=== PATIENT | male | born 1960 | race Caucasian/White ===

== ENCOUNTER 2018-04-14 11:00 | Outpatient (RCR) | payer OTHER, SELFPAY | END 2018-04-28 08:02 | disposition home or self-care (01) | LOC: PT 11:00 | PROVIDERS: Family Provider Family Medicine; Visit Provider Podiatrist Foot & Ankle Surgery | DX: M72.2 Plantar fascial fibromatosis (principal); M77.9 Enthesopathy, unspecified | CPT/HCPCS: 97033; 97110; 97140; 97163 ==

== ENCOUNTER → 2018-08-21 14:38 | Outpatient (CLI) | payer BC, SELFPAY ==
--- NOTE | 2018-08-21 14:42 | XR_ITS ---
XR chest 2V HISTORY: Wheezing, cough, smoker ITS.REASON: WHEEZY ORDERING PHYSICIAN: Xiomara Johnson PATIENT AGE: 58 years COMPARISON: 09/27/2015 FINDINGS: There has been a prior median sternotomy/CABG. Fracture several median sternotomy wires as before. The heart size. There is diffuse prominence of the interstitium. No lobar consolidation or collapse. Slight increased markings are present in the left perihilar region with bronchial thickening. There is pleural thickening in the left lung base and in the posterior hemithorax inferiorly. No acute bony anomalies. IMPRESSION: Diffuse interstitial lung disease with bronchial thickening in the left perihilar region consistent bronchitis/bronchiolitis with chronic changes
== END ==
PROVIDERS: PCP Physician Assistant; Visit Provider Physician Assistant
DX: R06.2 Wheezing (principal)
CPT/HCPCS: 71046

== ENCOUNTER 2020-01-27 10:30 | Emergency (ER) | payer BC, SELFPAY ==
[2020-01-27 10:33] VITALS: BP 132/85; PULSE 81; RESP 18; O2SAT 94; BMI 35.2
--- NOTE | 2020-01-27 10:46 | CT_ITS ---
PROCEDURE: CT HEAD/BRAIN WO CON CLINICAL INDICATION: dizziness COMPARISON: No exams were available for comparison TECHNIQUE: Axial images obtained. All CT scans at the facility use one or more dose reduction, viz: automated exposure control, ma/kV adjustment per patient size (including targeted exams where dose is matched to indication, i.e. head), or iterative reconstruction technique. FINDINGS: No midline shift, mass effect, intracranial hemorrhage, hydrocephalus, or extra-axial fluid collection is evident. There are mild periventricular hypodensities consistent with chronic ischemic white matter changes. The sylvian fissures and cortical sulci are mildly prominent. The calvarium has an unremarkable appearance. No mastoid effusion. The internal auditory canals appear normal. No sinus air-fluid level. IMPRESSION: Findings of mild age-appropriate cortical atrophy and mild chronic ischemic white matter changes, no acute intracranial pathology noted Dictated by: Dr. Vasiliy Garcia MD 01/27/2020 11:[address] Vasiliy Garcia MD in [place] 01/27/2020 11:30
--- NOTE | 2020-01-27 10:46 | CT_ITS ---
PROCEDURE: CT CHEST WO CON CLINICAL INDICATION: dizziness, cough COMPARISON: [facility] CT CHEST W/ CONTRAST from 11/03/2015 TECHNIQUE: Axial images obtained with sagittal and coronal reformats. All CT scans at the facility use one or more dose reduction, viz: automated exposure control, ma/kV adjustment per patient size (including targeted exams where dose is matched to indication, i.e. head), or iterative reconstruction technique. FINDINGS: HEART AND MEDIASTINAL STRUCTURES: There has been a previous median sternotomy with sternal wire sutures. Several of the wire sutures are fractured. There is mild generalized cardiomegaly with aortic tortuosity. There is markedly prominent coronary artery calcification. There is no pulmonary congestion. There are multiple borderline enlarged nodes in the paratracheal and perihilar regions bilaterally. LUNGS AND PLEURAL SPACES: There are findings of centrilobular emphysema primarily in the upper lobes with multiple air attenuation lucencies. Mild interstitial fibrotic changes are seen in the mid and lower lung mariano. There is no acute infiltrate. There is no pleural fluid. There is minimal pleural scarring at the left base. BONY STRUCTURES: No acute bony abnormalities apparent. There are mild multilevel degenerate changes of the thoracic spine. UPPER ABDOMEN: There is prominent arteriosclerotic calcification of the splenic artery ADDITIONAL FINDINGS: No other significant abnormalities. IMPRESSION: Mild centrilobular emphysematous changes and mild interstitial fibrotic changes, no acute cardiopulmonary disease seen. Dictated by: Dr. Vasiliy Garcia MD 01/27/2020 11:[address] Vasiliy Garcia MD in [place] 01/27/2020 11:49
[2020-01-27 11:07] LABS: Basophils % 0.3 % (0.1-2.0); Eosinophils # 0.2 K/mm3 (0.0-0.4); Hematocrit 45.9 % (42.0-52.0); Hemoglobin 15.5 g/dL (14.1-18.0); Lymphocytes # 1.3 K/mm3 (0.7-4.5); Lymphocytes % 13.2 % (10-50); Mean Corpuscular HGB Conc 33.8 g/dL (31.8-35.4); Mean Corpuscular Hemoglobin 30.2 pg (27.0-31.2); Mean Corpuscular Volume 89.4 fl (80-94); Mean Platelet Volume 7.3 fl (7.4-10.4); Monocytes # 0.6 K/mm3 (0.1-1.0); Monocytes % 6.2 % (1.7-9.3); Neutrophils # 7.5 K/mm3 (1.8-7.8); Neutrophils % 78.4 % (37.0-80.0); Platelet Count 227 K/mm3 (142-424); Red Blood Count 5.14 M/mm3 (4.60-6.20); Red Cell Distribution Width 15.7 % (11.5-17.5); White Blood Count 9.6 K/mm3 (4.8-10.8)
--- NOTE | 2020-01-27 11:08 | PC.NURSE ---
Pt to rad.
[2020-01-27 11:11] LABS: Alanine Aminotransferase 24 U/L (12-78); Albumin Level 4.6 g/dl (3.5-5.0); Alkaline Phosphatase 111 U/L (38-126); Aspartate Amino Transferase 34 U/L (17-59); Bilirubin,Total 0.4 mg/dl (0.2-1.3); Blood Urea Nitrogen 18 mg/dl (9-20); Calcium 10.4 mg/dl (8.4-10.2); Carbon Dioxide 35 mmol/L (22.0-30.0); Chloride 94 mmol/L (98-107); Creatinine Clearance Estimated 78 mL/min (50-200); Estimated Glomerular Filt Rate 44 ml/min (>60); GFR (African American) 54 ML/MIN (>60); Globulin 4.8 g/dL (1.3-3.2); Glucose 205 mg/dl (74-100); Sodium 137 mmol/L (136-145); Total Protein,Serum 9.4 g/dl (6.3-8.2)
[2020-01-27 11:35] VITALS: BP 108/71; PULSE 77; O2SAT 90
[2020-01-27 12:01] VITALS: BP 126/77; PULSE 77; O2SAT 92
--- NOTE | 2020-01-27 12:33 | PC.NURSE ---
Pt eating at this time.
[2020-01-27 12:34] VITALS: BP 117/68; PULSE 87; O2SAT 96
--- NOTE | 2020-01-27 13:06 | HMH.EDDIZZ ---
ED Disposition Clinical Impression: Dehydration Disposition: Home, Self-Care Condition on Discharge: Good Instructions: Dehydration Prescriptions: Meclizine HCl [Meclizine 25mg Tab] 25 mg PO TID 10 Days #30 tab Prescription Printed Referrals: Jen Iniguez APRN [Primary Care Provider] - - Critical Care Critical Care Time: No Attestation: On 01/27/20, the high probability of a clinically significant, sudden or life threatening deterioration of the following system(s) required my full and direct attention, intervention and personal management. The time I documented below is in addition to time spent performing reported procedures but includes the following listed in this critical care notation. Medical Decision Making - Medical Records Medical records reviewed: Yes: I reviewed the patient's medical records. - Carrillo Inquiry Pt receiving controlled substance: No Vital Signs: 01/27/20 10:33 01/27/20 11:35 01/27/20 12:01 Pulse Rate [Radial] 81 77 77 Respiratory Rate 18 Blood Pressure [Right Arm] 132/85 108/71 L 126/77 Blood Pressure Mean [Right Arm] 100 83 93 Blood Pressure Source [Right Arm] Automatic Cuff Automatic Cuff Automatic Cuff Blood Pressure Position [Right Arm] Sitting Sitting Sitting 02 Sat by Pulse Oximetry 94 L 90 L 92 L Oxygen Delivery Method Room Air Room Air Room Air 01/27/20 12:34 Pulse Rate [Radial] 87 Respiratory Rate Blood Pressure [Right Arm] 117/68 Blood Pressure Mean [Right Arm] 84 Blood Pressure Source [Right Arm] Automatic Cuff Blood Pressure Position [Right Arm] Sitting 02 Sat by Pulse Oximetry 96 Oxygen Delivery Method Room Air - Lab Data Lab results reviewed: Yes: I reviewed the patient's lab results. Lab Results 01/27/20 10:57: WBC 9.6, RBC 5.14, Hgb 15.5, Hct 45.9, MCV 89.4, MCH 30.2, MCHC 33.8, RDW 15.7, Plt Count 227, MPV 7.3 L, Neut % (Auto) 78.4, Lymph % (Auto) 13.2, [place] % (Auto) 6.2, Eos % (Auto) 2.0, Baso % (Auto) 0.3, Neut # (Auto) 7.5, Lymph # (Auto) 1.3, [place] # (Auto) 0.6, Eos # (Auto) 0.2, Baso # (Auto) 0.0 01/27/20 10:57: Sodium 137, Potassium 5.0, Chloride 94 L, Carbon Dioxide 35 H, Anion Gap 13.0, BUN 18, Creatinine 1.60 H, Estimated Creat Clear 78, Estimated GFR 44 L, Est GFR ( Amer) 54 L, Glucose 205 H, Calcium 10.4 H, Total Bilirubin 0.4, AST 34, ALT 24, Alkaline Phosphatase 111, Total Protein 9.4 H, Albumin 4.6, Globulin 4.8 H, Albumin/Globulin Ratio 1.0 L Result diagrams: 01/27/20 10:57 01/27/20 10:57 Orders (Tests/Meds): ED MEDICATIONS Discontinued Medications Generic Name Dose Route Start Last Admin Trade Name Freq PRN Reason Stop Dose Admin Sodium Chloride 1,000 mls @ 999 mls/hr 01/27/20 11:00 01/27/20 11:04 Sod Chlor 0.9% 1000ml Bag IV 01/27/20 12:00 999 mls/hr .[id number] Administration Dizzy HPI - General Chief Complaint: Dizziness Stated Complaint: rule out Stroke or heart Attack Time Seen by Provider: 01/27/20 13:00 Mode of Arrival: Ambulatory Source of Information: Patient Limitations: No Limitations Description of Symptoms (Recalled from ER Triage Doc. by RN): Complaint of dizziness when laying down or movement. States it feels like his head just keeps moving even though he is not physically moving. States that it does seem to be getting better and is wondering if this is related to the Recall on his Metformin. - History of Present Illness MD complaint: dizziness Onset (ago): hour(s) Time: 13:00 Timing: sudden onset Description: sense of movement History of similar episodes: Yes History of trauma: No Severity: mild Relieving factors: rehydration Exacerbating factors: nothing Associated symptoms: denies other symptoms - Related Data Previous Rx's Medication Instructions Recorded Meclizine HCl [Meclizine 25mg Tab] 25 mg PO TID 10 Days #30 tab 01/27/20 Allergies Allergy/AdvReac Type Severity Reaction Status Date / Time Sulfa (Sulfonamide Allergy Severe S-DIFF. Verified
[2020-01-27 13:08] VITALS: BP 116/76; PULSE 79; O2SAT 93
[2020-01-27 13:36] VITALS: BP 116/76; PULSE 74; RESP 16; TEMP 36.9; O2SAT 98
== END 2020-01-27 13:36 | disposition home or self-care (01) ==
PROVIDERS: Emergency Provider Family Medicine; PCP Nurse Practitioner Family
DX: E86.0 Dehydration (principal); F17.210 Nicotine dependence, cigarettes, uncomplicated; Z88.2 Allergy status to sulfonamides
CPT/HCPCS: 70450; 71250; 80053; 85025; 96365; 99283

== ENCOUNTER → 2020-04-14 07:07 | Outpatient (CLI) | payer BC, SELFPAY ==
--- NOTE | 2020-04-14 07:08 | CA_ITS ---
APPROVED REPORT EXAM: Comprehensive 2D, Doppler, and color-flow Echocardiogram Breadman: Emely Chávez RT(R) Ht: 5 ft 10 in Wt: 257lbs BSA: 2.32 BP: 136/70 mmHg Indications: CABG, COPD, HTN, DM, SOB, hyperlipidemia, stent 2D Dimensions LVOT 1.78 cm (M/F) 1.5-2.5 M-Mode Dimensions LVDd 4.12 cm (3.5-5.7) LVDs 3.32 cm (3.5-5.7) IVSd 1.22 cm (0.6-1.1) PWd 1.12 cm (0.6-1.1) EF (Teich) 40.30% FS 19.40% EDV (Teich) 75.10 mL ESV (Teich) 44.80 mL LV Diastology E/A Ratio 0.96 Mitral Valve MV A Velocity 76.00 (40-130 cm/s) Left Ventricle Technically difficult study because of the patient factors and poor acoustic windows, Definity contrast was utilized to delineate the endocardial surfaces, left atrium is mildly enlarged, left ventricle is normal size, mild concentric left ventricular hypertrophy, visually estimated ejection fraction 55% with no regional wall motion abnormality, diastolic parameters are inconclusive. Right Ventricle Right atrium and right ventricle are normal size and contractility. Aortic Valve Aortic valve is minimally thickened and fibrosed, there is no aortic stenosis or aortic insufficiency. Mitral Valve Mitral valve leaflets are minimally thickened, there is mild mitral regurgitation. Tricuspid Valve Tricuspid valve grossly normal, there is mild tricuspid regurgitation, tricuspid regurgitation jet velocity is inadequate for calculation of the right ventricular systolic pressure. Pulmonic Valve Pulmonic valve is poorly visualized. Great Vessels Aortic root is normal size. Pericardium No significant pericardial effusion noted. Conclusion 1. Mildly enlarged left atrium, normal left ventricular size, mild concentric left ventricular hypertrophy, visually estimated ejection fraction 55% with no regional wall motion abnormality, Definity contrast was utilized to delineate the endocardial surfaces, there is no left ventricular thrombus seen, diastolic parameters are inconclusive. 2. Thickened and calcified aortic valve without aortic stenosis or aortic insufficiency. 3. Mild mitral and tricuspid regurgitation. 4. No significant pericardial effusion noted. Electronically signed by : Xander Gunn, 04/14/2020 13:17:30
--- NOTE | 2020-04-14 07:08 | NM_ITS ---
APPROVED REPORT Exam: Nuclear Stress Test Indication: CAD, CABG, HTN, DM, TOB USE, FM HX, FATIGUE Patient Location: Outpatient Stress Tech: Camille Figueroankson [place] Tech:RJ Burnett RT (R)(N)(M) Ht: 5 ft 10 in Wt: 257 lbs HR: 93 bpm BP: 124/74 mmHg BSA: 2.32 m2 BMI: 36.8 History: CAD, CABG, HTN, DM, TOB USE, FM HX, FATIGUE Procedure: Patient received a 0.4 mg of intravenous Lexiscan, resting heart rate 93 bpm, resting blood pressure 124/74 mmHg, with Lexiscan maximum heart rate achived was 105 bpm which is Less than 85 % of the maximum predicted heart rate and blood pressure was 122/71 mmHg. With Lexiscan, patient denied any complaint of chest pain. Electrocardiogram Resting electrocardiogram shows sinus rhythm right bundle branch block, with Lexiscan there is less than 1.[address] segment depression noted from the baseline EKG. The EKG portion of the Lexiscan Myoview is nondiagnostic. Cardiac Stress and Resting SPECT Images: Cardiac Stress and Resting SPECT images were obtained using technetium 99m Myoview 30.8 mCi stress and 10.84 mCi at rest. Gated SPECT for the analysis of segmental wall motion and calculation of the ejection fraction also done. Cardiac stress and rest SPECT images show decrease tracer activity in the anterolateral wall which improves on the resting images, this is consistent with reversible ischemia, there is transient ischemic dilatation of the left ventricle also seen. Computer derived ejection fraction is 61% with no regional wall motion abnormality, right ventricle is normal size and contractility. Conclusion: 1. The EKG portion of the Lexiscan Myoview is nondiagnostic. 2. Scintigraphic evidence of reversible ischemia involving the anterolateral wall, computer derived ejection fraction is 61% with no regional wall motion abnormality, right ventricle is normal size and contractility, there is transient ischemic dilatation of the left ventricle seen. 3. Abnormal Lexiscan Myoview study. Electronically signed by : Xander Gunn, 04/14/2020 13:34:46
--- NOTE | 2020-04-14 07:08 | CA_ITS ---
APPROVED REPORT Exam: Pharmacologic Technologist: Myranda Bravo, Ht: 5 ft 10 in Wt: 257 lbs BSA: 2.32 m2 HR: 93 bpm BP: 124/74 mmHg Rhythm: NSR,RBBB Medical History Medical History: CAD s/p CABG, Diabetic ??? Insulin, Hyperlipidemia, HTN Medications: Levothyroxine,,,,, Metoprolol,,,,, Asa,,,,, Metformin,,,,, Gabapentin,,,,, Allopurinol,,,,, Glimepiride,,,,, Lasix,,,,, INSULIN,,,,, SpirOLACTONE,,,,, Vit D3,,,,, Plavix,,,,, Allergies: SULFA ALBUTEROL IRON Stress Test Details Test: LEXISCAN HR Resting HR: 89 bpm Max Heart Rate (APMHR): 161 bpm Max HR Achieved: 105 bpm Target HR (85% APMHR): 136 bpm % of APMHR: 65 Recovery HR: 96 bpm BP Resting BP: 124.0/74.0 mmHg Max BP: 124.0/74.0 mmHg Recovery BP: 124.0/71.0 mmHg ECG Resting ECG: NSR,RBBB Clinical Reason for Termination: Completed Protocol Exercise duration: 04:13 min Highest Stage Achieved: Stress ECG Conclusion DURING INFUSION PATIENT HAD NO CHEST PAIN. OCCASIONAL PVC AND PAC. <1.5MM ST SEGMENT CHANGES. NON-DIAGNOSTIC. Test Summary REST . . . . . . . Sitting REST . . . . . . . Sitting REST 10:36 . . 89 . 124/ 74 . . Stage 1 . . . . . . . Cardiolite injected Stage 1 01:00 . . 101 . . . . Stage 2 01:00 . . 105 . 118/ 70 . . Stage 3 01:00 . . 102 . 122/ 71 . . Stage 4 01:00 . . 99 . 121/ 74 . . Stage 4 01:13 . . 99 . 122/ 66 . Stop exercise at 04:13 RECOVERY 01:00 . . 97 . . . . RECOVERY 02:00 . . 97 . . . . RECOVERY 03:00 . . 96 . . . . RECOVERY 04:00 . . 96 . 121/ 70 . . RECOVERY 04:21 . . 96 . 121/ 70 . . Electronically signed by : Xander Gunn, 04/14/2020 13:32:30
== END ==
PROVIDERS: PCP Nurse Practitioner Family; Visit Provider Physician Assistant
DX: I25.10 Atherosclerotic heart disease of native coronary artery without angina pectoris (principal); E78.5 Hyperlipidemia, unspecified; I10 Essential (primary) hypertension; Z95.1 Presence of aortocoronary bypass graft
CPT/HCPCS: 78452; 93017; 93306; A9502; J2785; Q9957

== ENCOUNTER 2020-05-02 08:54 | Day surgery (SDC) | payer BC, SELFPAY ==
[2020-05-02] VITALS (10 sets, daily range): BP systolic 124–150; BP diastolic 73–89; PULSE 77–85; RESP 16–20; TEMP 36.2; O2SAT 92–97; BMI 37.0
[2020-05-02 09:38] LABS: Basophils % 0.4 % (0.1-2.0); Eosinophils # 0.2 K/mm3 (0.0-0.4); Eosinophils % 1.8 % (0.1-12.0); Hematocrit 45.7 % (42.0-52.0); Hemoglobin 15.3 g/dL (14.1-18.0); Lymphocytes # 1.3 K/mm3 (0.7-4.5); Lymphocytes % 11.9 % (10-50); Mean Corpuscular HGB Conc 33.5 g/dL (31.8-35.4); Mean Corpuscular Hemoglobin 30.7 pg (27.0-31.2); Mean Corpuscular Volume 91.7 fl (80-94); Mean Platelet Volume 7.7 fl (7.4-10.4); Monocytes # 0.5 K/mm3 (0.1-1.0); Monocytes % 4.9 % (1.7-9.3); Neutrophils # 8.7 K/mm3 (1.8-7.8); Neutrophils % 81.2 % (37.0-80.0); Platelet Count 217 K/mm3 (142-424); Red Blood Count 4.98 M/mm3 (4.60-6.20); Red Cell Distribution Width 16.2 % (11.5-17.5); White Blood Count 10.8 K/mm3 (4.8-10.8)
[2020-05-02 09:48] LABS: Chloride 100 mmol/L (98-107); Potassium 4.3 mmoL/L (3.5-5.1); Sodium 139 mmol/L (136-145)
[2020-05-02 09:51] LABS: Anion Gap 12.3 mEq/L (5-15); Blood Urea Nitrogen 19 mg/dl (9-20); Carbon Dioxide 31 mmol/L (22.0-30.0); Creatinine Clearance Estimated 93 mL/min (50-200); Estimated Glomerular Filt Rate 52 ml/min (>60); GFR (African American) 63 ML/MIN (>60)
[2020-05-02 09:52] LABS: Calcium 9.7 mg/dl (8.4-10.2); Glucose 227 mg/dl (74-100)
[2020-05-02 10:18] LABS: Coronavirus 19 IgG Antibody Positive (Negative); Coronavirus 19 IgM Antibody Negative (Negative)
--- NOTE | 2020-05-02 11:00 | IR_ITS ---
APPROVED REPORT Patient Location: Outpatient PROCEDURES Left heart catheterization Left ventriculogram Selective coronary angiogram Left internal mammary angiography Selective engagement of the saphenous vein graft to the circumflex artery Selective engage in the saphenous vein graft to the right coronary INDICATION Coronary artery disease, Coronary bypass surgery, Abnormal Myoview, Angina pectoris Informed consent was obtained prior to the procedure. COMPLICATIONS none Estimated Blood Loss: less than 10 mls TECHNIQUE One percent lidocaine used to anesthetize the right groin. The right femoral artery was accessed via the Seldinger technique and a 5 Togolese sheath was placed in the right femoral artery. A JL 4, JR4 catheter were used to perform left heart catheterization, left ventriculogram selective coronary angiography as well as selective engagement of the 2 vein grafts and the left internal mammary artery. At the end of the procedure the patient was transferred to the postop holding area in stable condition for sheath removal. ANGIOGRAPHIC RESULTS The left main artery Normal The left anterior descending artery Proximally occluded The circumflex artery Is dominant and has mid vessel 90% stenoses and gives rise to a small first obtuse marginal artery. The circumflex artery is then occluded at the second obtuse marginal artery The right coronary artery Nondominant and subtotally occluded in the proximal segment The SMITH ventriculogram reveals Preserved at 55 to 60% The left ventricular end-diastolic pressure 10 mmHg DOSS graft is widely patent to the LAD Saphenous vein graft to the second obtuse marginal artery is widely patent Saphenous vein graft to the right coronary is widely patent IMPRESSION Adequate three-vessel coronary revascularization as described above Preserved ejection fraction Normal left ventricular end-diastolic pressure PLAN 1. Medical management Electronically signed by : Link Horton, 05/02/2020 13:01:28
== END 2020-05-02 15:30 | disposition home or self-care (01) ==
LOC: CATHLAB 08:55
PROVIDERS: PCP Nurse Practitioner Family; Visit Provider Internal Medicine
DX: I25.118 Atherosclerotic heart disease of native coronary artery with other forms of angina pectoris (principal); E78.2 Mixed hyperlipidemia; I10 Essential (primary) hypertension; Z95.1 Presence of aortocoronary bypass graft; R94.39 Abnormal result of other cardiovascular function study; R06.00 Dyspnea, unspecified; E03.9 Hypothyroidism, unspecified; E11.9 Type 2 diabetes mellitus without complications; Z88.2 Allergy status to sulfonamides; Z88.8 Allergy status to other drugs, medicaments and biological substances; Z79.4 Long term (current) use of insulin; Z79.899 Other long term (current) drug therapy
CPT/HCPCS: 80048; 85025; 86328; 93459; 99152; C1725; C1769; C1894; J1644; Q9967

== ENCOUNTER → 2020-05-18 09:58 | Outpatient (CLI) | payer BC, SELFPAY | PROVIDERS: PCP Nurse Practitioner Family; Visit Provider Internal Medicine Pulmonary Disease | DX: R06.00 Dyspnea, unspecified (principal); J84.9 Interstitial pulmonary disease, unspecified | CPT/HCPCS: 94060; 94618; 94726; 94729 ==

== ENCOUNTER → 2020-11-13 12:47 | Outpatient (CLI) | payer BC, SELFPAY ==
--- NOTE | 2020-11-13 12:50 | CT_ITS ---
PROCEDURE: CT HR CHEST X3 CLINICAL HISTORY: ILD Follow up soa, interstitial lung disease, pulmonary fibrosis, smoker COMPARISON: CT CT CHEST WO CON from 01/27/2020 TECHNIQUE: Study is performed without contrast. Regular and high-resolution images are obtained on inspiration, expiration, and prone position. Axial images obtained with sagittal and coronal reformats. All CT scans at the facility use one or more dose reduction, viz: automated exposure control, ma/kV adjustment per patient size (including targeted exams where dose is matched to indication, i.e. head), or iterative reconstruction technique. FINDINGS: There has been a prior CABG. Extensive coronary artery calcification and/or stents noted. The heart size is normal. No evidence of aortic aneurysm. Scattered small mediastinal lymph nodes are once again noted not significantly changed. Diffuse pulmonary fibrosis once again noted with honeycombing in the upper lobes. There is a subpleural nodular opacity within the lingula at 12 mm not readily apparent on the previous exam possibly due to an area of subpleural atelectatic change/consolidation. Cannot exclude the possibility of a developing nodule. Scarring is present in the left lung base laterally. There is some scattered interlobular septal thickening in the lung bases. The pulmonary fibrotic changes do not appear significantly changed considering the difference in technique.. Atelectatic changes are present in the lung bases. The lung volume is not significantly changed in inspiration or expiration suggesting air trapping. There is mild bronchiectasis in the upper lobes. Mild bronchial thickening noted. No acute bony findings. There are few small nodes in the epigastric region unchanged. IMPRESSION: 1. Pulmonary fibrotic changes are present with honeycombing with upper lobe predominance. Mild interlobular septal thickening noted in the lung bases. 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 Overall no significant change compared to the previous exam. There is mild bronchial thickening as well as bronchiectasis in the upper lobes. 2. New nodular opacity in the left upper lobe anteriorly in the subpleural region and may be due to an area of subpleural atelectasis or consolidation. Suggest follow-up to exclude developing nodule. Dictated by: Simone Lopez MD 11/18/2020 16:22 Simone Lopez MD in [place] 11/18/2020 16:22
== END ==
PROVIDERS: PCP Nurse Practitioner Family; Visit Provider Internal Medicine Pulmonary Disease
DX: J84.9 Interstitial pulmonary disease, unspecified (principal); J67.9 Hypersensitivity pneumonitis due to unspecified organic dust
CPT/HCPCS: 71250

== ENCOUNTER → 2020-11-20 11:51 | Outpatient (CLI) | payer BC, SELFPAY ==
[2020-11-20 13:02] LABS: Creatine Kinase 55 U/L (55-170); Uric Acid 7.1 mg/dl (3.5-8.5)
[2020-11-20 13:07] LABS: C-Reactive Protein 23.4 mg/L (0-4)
[2020-11-20 14:14] LABS: Erythrocyte Sedimentation Rate 13 mm/hr (0-20)
[2020-11-21 16:34] LABS: Aldolase 9.5 U/L (3.3-10.3); RA Latex Turbid. <10.0 IU/mL (0.0-13.9)
[2020-11-21 17:20] LABS: IgG, Subclass 1 1155 mg/dL (248-810); IgG, Subclass 2 168 mg/dL (130-555); IgG, Subclass 3 82 mg/dL (15-102); Immunoglobulin G, Qn 1631 mg/dL (603-1613)
[2020-11-22 02:50] LABS: IgG, Subclass 4 101 mg/dL (2-96)
[2020-11-22 22:25] LABS: Antinuclear Antibodies, IFA Positive (.)
[2020-11-24 11:20] LABS: Aspergillus fumigatus IgG Negative (Negative)
[2020-11-24 18:01] LABS: Pigeon Serum Abs Negative (Negative)
[2020-11-30 17:51] LABS: Anti-Centromere B Antibodies <.2; Anti-DNA (DS) Ab Qn 2; Anti-Jo-1 <.2; Anti-Smith Antibody <.2; Antichromatin Antibodies <.2; Antiscleroderma-70 Antibodies <.2; RNP Antibodies <.2; Sjogren's Anti-SS-A <.2; Sjogren's Anti-SS-B <.2
[2020-11-30 17:53] LABS: Antinuclear Antibodies (ANA) NEGATIVE; Smith/RNP Antibodies <.2
== END ==
PROVIDERS: Visit Provider Internal Medicine Pulmonary Disease
DX: R06.00 Dyspnea, unspecified (principal); J84.9 Interstitial pulmonary disease, unspecified; J84.10 Pulmonary fibrosis, unspecified; J67.9 Hypersensitivity pneumonitis due to unspecified organic dust
CPT/HCPCS: 36415; 82085; 82550; 82784; 82787; 84550; 85651; 86038; 86140; 86225; 86235; 86331; 86431; 86602; 86606; 86609

== ENCOUNTER 2021-01-18 15:51 | Emergency (ER) | payer BC, SELFPAY ==
[2021-01-18 15:53] VITALS: BP 143/85; PULSE 84; RESP 20; TEMP 37.2; O2SAT 90; BMI 38.2
--- NOTE | 2021-01-18 16:00 | ECG_ITS ---
APPROVED REPORT Exam: Resting ECG HR:93 bpm ECG Measurements Heart Rate 93 AXES IA 138 P 56 QRSd 134 QRS -26 QT 384 T 20 QTc 477 Conclusion Normal sinus rhythm Left atrial abnormality Right bundle branch block Abnormal ECG Electronically signed by : Franco Temple, 01/20/2021 10:56:53
--- NOTE | 2021-01-18 16:14 | XR_ITS ---
PROCEDURE: XR CHEST PORTABLE CLINICAL HISTORY: soa COMPARISON: 08/21/2018 FINDINGS: Prior CABG. There are fractured median sternotomy wires as before. No evidence of CHF. Diffuse interstitial lung disease. The interstitial markings are more prominent than when compared to the older chest x-ray of 08/21/2018. A vague opacity is noted in the left mid to lower lung zone at 2.7 cm. There is chronic blunting of the left CP angle. No acute bony abnormalities. IMPRESSION: Progression of interstitial lung disease. Indeterminate nodular opacity in the left lower lobe. Dictated by: Simone Lopez MD 01/19/2021 07:26 Simone Lopez MD in [place] 01/19/2021 07:26
[2021-01-18 16:15] VITALS: BP 123/76; PULSE 91; RESP 19; O2SAT 87
--- NOTE | 2021-01-18 16:20 | PC.NURSE ---
Rad at bedside
[2021-01-18 16:22] VITALS: BP 123/76; PULSE 91; RESP 23; O2SAT 91
[2021-01-18 16:31] VITALS: BP 106/67; PULSE 92; RESP 24; O2SAT 90
--- NOTE | 2021-01-18 16:31 | HMH.EDGENADL ---
ED Disposition Clinical Impression: Congestive heart failure, Acute pulmonary edema Disposition: Home, Self-Care Condition on Discharge: Good Additional Instructions: Emergency room for difficulty breathing, should your pulse oximetry go less than 90 or any other concerns within the next 8 hours otherwise follow-up with your primary care physician tomorrow Prescriptions: Nitroglycerin 0.4 mg SL [id number] PRN 1 Days #5 tab.subl PRN Reason: Dyspnea Transmission Status: Pending to [id number] Referrals: Jen Iniguez APRN [Primary Care Provider] - - Critical Care Critical Care Time: No Attestation: On 01/18/21, the high probability of a clinically significant, sudden or life threatening deterioration of the following system(s) required my full and direct attention, intervention and personal management. The time I documented below is in addition to time spent performing reported procedures but includes the following listed in this critical care notation. Medical Decision Making - Medical Records Medical records reviewed: Yes: I reviewed the patient's medical records. - Carrillo Inquiry Pt receiving controlled substance: No Vital Signs: 01/18/21 15:53 01/18/21 16:15 01/18/21 16:22 Temperature 99.0 F Temperature Source Oral Pulse Rate 91 H 91 H Pulse Rate [Right] 84 Respiratory Rate 20 19 23 Blood Pressure 123/76 123/76 Blood Pressure [Right Arm] 143/85 H Blood Pressure Mean [Right Arm] 104 02 Sat by Pulse Oximetry 90 L 87 L 91 L Oxygen Delivery Method Room Air 01/18/21 16:31 01/18/21 16:45 Temperature Temperature Source Pulse Rate 92 H 58 L Pulse Rate [Right] Respiratory Rate 24 22 Blood Pressure 106/67 L 112/73 Blood Pressure [Right Arm] Blood Pressure Mean [Right Arm] 02 Sat by Pulse Oximetry 90 L 91 L Oxygen Delivery Method - Lab Data Lab Results 01/18/21 16:14: VBG pH 7.37, VBG pCO2 48.3, VBG pO2 37.7, VBG HCO3 27.1, VBG Total CO2 28.6 H, VBG O2 Saturation 73.4 H, VBG Base Excess 1.8 01/18/21 16:29: WBC 11.4 H, RBC 4.53 L, Hgb 13.3 L, Hct 40.2 L, MCV 88.9, MCH 29.4, MCHC 33.0, RDW 15.2, Plt Count 236, MPV 7.1 L, Neut % (Auto) 78.7, Lymph % (Auto) 14.5, [place] % (Auto) 5.1, Eos % (Auto) 1.4, Baso % (Auto) 0.3, Neut # (Auto) 9.0 H, Lymph # (Auto) 1.7, [place] # (Auto) 0.6, Eos # (Auto) 0.2, Baso # (Auto) 0.0 01/18/21 16:29: Sodium 138, Potassium 4.6, Chloride 102, Carbon Dioxide 29, Anion Gap 11.6, BUN 18, Creatinine 1.70 H, Estimated Creat Clear 79, Estimated GFR 41 L, Est GFR ( Amer) 50 L, Glucose 207 H, Calcium 9.2, Magnesium 1.6, Total Bilirubin 0.4, AST 28, ALT 17, Alkaline Phosphatase 111, NT-Pro-B Natriuret Pep 671 H, Total Protein 8.7 H, Albumin 4.4, Globulin 4.3 H, Albumin/Globulin Ratio 1.0 L Result diagrams: 01/18/21 16:29 01/18/21 16:29 Orders (Tests/Meds): ED MEDICATIONS Generic Name Dose Route Start Last Admin Trade Name Freq PRN Reason Stop Dose Admin Nitroglycerin 0.4 mg 01/18/21 16:34 Nitroglycerin 0.4mg Sl Tablet SL 02/17/21 16:33 [id number] PRN Chest Pain Discontinued Medications Generic Name Dose Route Start Last Admin Trade Name Freq PRN Reason Stop Dose Admin Furosemide 80 mg 01/18/21 16:34 01/18/21 16:57 Furosemide 40mg/4ml Vial IV 01/18/21 16:35 80 mg ONCE ONE Administration ORDERS Category Date Time Status Chest XR -- portable [XR chest portable] Stat Exams 01/18/21 16:14 Taken BNP [Brain Natriuretic Peptide] Stat Lab 01/18/21 16:29 Results Comprehensive Metabolic Panel Stat Lab 01/18/21 16:29 Results Magnesium Stat Lab 01/18/21 16:29 Results Trop I [Troponin I] Stat Lab 01/18/21 16:29 Results Troponin I Q3H Lab 01/18/21 19:15 Ordered Troponin I Q3H Lab 01/18/21 22:15 Ordered Medical Decision Narrative: 60-year-old male presents with shortness of breath. He is in no acute distress nontoxic-appearing however he is mildly dyspneic on initial exam. Chest x-ray turned to
[2021-01-18 16:43] LABS: Basophils % 0.3 % (0.1-2.0); Eosinophils # 0.2 K/mm3 (0.0-0.4); Eosinophils % 1.4 % (0.1-12.0); Hematocrit 40.2 % (42.0-52.0); Hemoglobin 13.3 g/dL (14.1-18.0); Lymphocytes # 1.7 K/mm3 (0.7-4.5); Lymphocytes % 14.5 % (10-50); Mean Corpuscular Hemoglobin 29.4 pg (27.0-31.2); Mean Corpuscular Volume 88.9 fl (80-94); Mean Platelet Volume 7.1 fl (7.4-10.4); Monocytes # 0.6 K/mm3 (0.1-1.0); Monocytes % 5.1 % (1.7-9.3); Neutrophils % 78.7 % (37.0-80.0); Platelet Count 236 K/mm3 (142-424); Red Blood Count 4.53 M/mm3 (4.60-6.20); Red Cell Distribution Width 15.2 % (11.5-17.5); White Blood Count 11.4 K/mm3 (4.8-10.8)
[2021-01-18 16:45] VITALS: BP 112/73; PULSE 58; RESP 22; O2SAT 91
[2021-01-18 16:48] LABS: Chloride 102 mmol/L (98-107); Potassium 4.6 mmoL/L (3.5-5.1); Sodium 138 mmol/L (136-145)
[2021-01-18 16:50] LABS: Blood Urea Nitrogen 18 mg/dl (9-20); Creatinine Clearance Estimated 79 mL/min (50-200); Estimated Glomerular Filt Rate 41 ml/min (>60); GFR (African American) 50 ML/MIN (>60)
[2021-01-18 16:51] LABS: Alanine Aminotransferase 17 U/L (12-78); Albumin Level 4.4 g/dl (3.5-5.0); Alkaline Phosphatase 111 U/L (38-126); Anion Gap 11.6 mEq/L (5-15); Aspartate Amino Transferase 28 U/L (17-59); Bilirubin,Total 0.4 mg/dl (0.2-1.3); Calcium 9.2 mg/dl (8.4-10.2); Carbon Dioxide 29 mmol/L (22.0-30.0); Globulin 4.3 g/dL (1.3-3.2); Glucose 207 mg/dl (74-100); Magnesium 1.6 mg/dl (1.6-2.3); Total Protein,Serum 8.7 g/dl (6.3-8.2)
--- NOTE | 2021-01-18 16:55 | PC.NURSE ---
applied oxygen to pt, his o2 sat was reading 88%
[2021-01-18 16:59] LABS: VBG Base Excess 1.8 mmol/L (-2.4-2.3); VBG HCO3 27.1 mmol/L (23-30); VBG Oxygen Saturation 73.4 % (50-70); VBG PCO2 48.3 mmol/L (35-51); VBG PH 7.37 mmol/L (7.31-7.41); VBG PO2 37.7 mmol/L (28-40); VBG Total CO2 28.6 mmol/L (23-27)
[2021-01-18 17:00] LABS: NT Pro Brain Natriuretic Pep. 671 pg/mL (0-125)
[2021-01-18 17:11] LABS: Troponin I < 0.01 ng/ml (0.00-0.034)
[2021-01-18 17:24] VITALS: BP 112/73; PULSE 91; RESP 20; TEMP 37.2; O2SAT 96
== END 2021-01-18 17:26 | disposition home or self-care (01) ==
PROVIDERS: Emergency Provider Emergency Medicine; PCP Nurse Practitioner Family
DX: J81.0 Acute pulmonary edema (principal); I50.9 Heart failure, unspecified; J44.9 Chronic obstructive pulmonary disease, unspecified; I10 Essential (primary) hypertension; E78.5 Hyperlipidemia, unspecified; I25.10 Atherosclerotic heart disease of native coronary artery without angina pectoris; E11.9 Type 2 diabetes mellitus without complications; Z79.899 Other long term (current) drug therapy; F17.210 Nicotine dependence, cigarettes, uncomplicated; Z88.2 Allergy status to sulfonamides; Z88.8 Allergy status to other drugs, medicaments and biological substances
CPT/HCPCS: 71045; 80053; 82803; 83735; 83880; 84484; 85025; 93005; 96374; 99282

== ENCOUNTER → 2021-01-30 07:48 | Outpatient (CLI) | payer BC, SELFPAY | PROVIDERS: PCP Nurse Practitioner Family; Visit Provider Internal Medicine Pulmonary Disease | DX: R06.09 Other forms of dyspnea (principal) | CPT/HCPCS: 94060; 94618; 94726; 94729 ==

== ENCOUNTER → 2021-02-23 15:21 | Outpatient (CLI) | payer BC, SELFPAY ==
--- NOTE | 2021-02-23 15:21 | CT_ITS ---
PROCEDURE: CT CHEST WO CON CLINICAL INDICATION: lunh nodule Follow-up lung nodule, shortness of air COMPARISON: CT CT CHEST WO CON from 01/27/[address] HR CHEST X3 from 11/13/2020 CR XR CHEST PORTABLE from 01/18/2021 TECHNIQUE: Axial images obtained with sagittal and coronal reformats. All CT scans at the facility use one or more dose reduction, viz: automated exposure control, ma/kV adjustment per patient size (including targeted exams where dose is matched to indication, i.e. head), or iterative reconstruction technique. FINDINGS: HEART AND MEDIASTINAL STRUCTURES: Prior CABG. There is no evidence of mediastinal adenopathy. The largest node is in the anterior mediastinum measuring 3 by 2.5 cm. Other smaller nodes are present and have increased in size. There is diffuse coronary artery calcification. LUNGS AND PLEURAL SPACES: Diffuse pulmonary fibrosis once again noted with honeycombing. Previously described nodule within the lingula has increased in size now measuring 3.6 by 2.9 cm suspicious for malignancy. No obvious chest wall invasion. This nodule is directly contiguous with the least 2 bronchi in the superior lingular segment. There is some minimal pleural calcification in the left lung base posteriorly. No effusions are apparent. A 4 mm noncalcified nodules present in the left lower lobe image 67 series 3 BONY STRUCTURES: No acute bony abnormalities apparent. UPPER ABDOMEN: Vague low-density changes are present in the central aspect of the pancreas at 1.7 cm. Left adrenal gland is enlarged similar to the previous exam ADDITIONAL FINDINGS: Mild gynecomastia IMPRESSION: Enlarging left upper lobe nodule within the lingula with mediastinal adenopathy highly suspicious for malignancy with mediastinal ramón involvement. The nodule may be amenable to biopsy via bronchoscopy. Severe interstitial lung disease with honeycombing is present making the patient at high risk for developing pneumothorax via percutaneous biopsy. Dictated by: Simone Lopez MD 02/24/2021 08:41 Simone Lopez MD in [facility] 02/24/2021 08:41
== END ==
PROVIDERS: PCP Nurse Practitioner Family; Visit Provider Internal Medicine Pulmonary Disease
DX: R91.8 Other nonspecific abnormal finding of lung field (principal)
CPT/HCPCS: 71250

== ENCOUNTER → 2021-03-20 09:33 | Outpatient (CLI) | payer BC, SELFPAY ==
--- NOTE | 2021-03-20 09:33 | CT_ITS ---
PROCEDURE: CT BIOPSY GUIDED NEEDLE CLINICAL HISTORY: lung nodule - Left Left lung mass COMPARISON: CT CT CHEST WO CON from 02/23/2021 TECHNIQUE: Following obtaining informed consent and time-out procedure under aseptic conditions and local anesthesia with 1 percent buffered lidocaine, and CT guidance, a 20 gauge spinal needle was inserted into the left upper lobe mass x2. Fine needle aspiration was performed and given to cytology for immediate evaluation confirming adequate tissue. Axial images obtained with sagittal and coronal reformats. All CT scans at the facility use one or more dose reduction, viz: automated exposure control, ma/kV adjustment per patient size (including targeted exams where dose is matched to indication, i.e. head), or iterative reconstruction technique. FINDINGS: Pre biopsy images demonstrated COPD with pulmonary fibrotic changes centrilobular and paraseptal emphysema. The left upper lobe mass has actually increased in size from 02/24/2020 previously measuring 3.8 x 3 cm now measuring 7.4 by 4.5 cm. The cephalad to caudad extension has also increased however, reformatted images were not performed on the biopsy exam. There is trace left-sided effusion. There are 3 small nodular opacities now noted in the left lower lobe at 1 cm, 1.8 cm, and 0.5 cm. 5 nodular opacities are present in the right lower lobe measuring up to 1 cm. These are suspicious for metastatic foci. They could however be inflammatory or infectious as well. Post biopsy images show no evidence of pneumothorax or pulmonary hemorrhage. Cytology: Malignant non-small cell carcinoma IMPRESSION: Uneventful CT-guided biopsy of the left upper lobe mass demonstrating malignant non-small cell carcinoma. The left upper lobe mass has increased in size and there are now small bilateral pulmonary nodules suspicious for metastasis compared to the previous exam Dictated by: Simone Lopez MD 03/22/2021 14:11 Simone Lopez MD in [facility] 03/22/2021 14:11
[2021-03-20 10:22] LABS: POC Glucose,Bedside 200 (70-110)
[2021-03-20 10:24] VITALS: BMI 36.4
[2021-03-20 11:02] VITALS: BP 114/67; PULSE 98; RESP 18; TEMP 37.1; O2SAT 95
[2021-03-20 11:37] LABS: Basophils % 0.2 % (0.1-2.0); Eosinophils # 0.1 K/mm3 (0.0-0.4); Eosinophils % 0.6 % (0.1-12.0); Hematocrit 36.6 % (42.0-52.0); Hemoglobin 11.9 g/dL (14.1-18.0); Lymphocytes # 1.3 K/mm3 (0.7-4.5); Lymphocytes % 6.9 % (10-50); Mean Corpuscular HGB Conc 32.6 g/dL (31.8-35.4); Mean Corpuscular Hemoglobin 27.7 pg (27.0-31.2); Mean Platelet Volume 8.4 fl (7.4-10.4); Monocytes # 0.9 K/mm3 (0.1-1.0); Monocytes % 4.7 % (1.7-9.3); Neutrophils # 16.7 K/mm3 (1.8-7.8); Neutrophils % 87.6 % (37.0-80.0); Platelet Count 353 K/mm3 (142-424); Red Blood Count 4.31 M/mm3 (4.60-6.20); Red Cell Distribution Width 16.5 % (11.5-17.5)
[2021-03-20 11:44] LABS: MANUAL DIFFERENTIAL MANUAL DIFFERENTIAL (MANUAL DIFF)
[2021-03-20 12:09] LABS: Activated Partial Thrombo Time 32.8 seconds (22.8-30.6); Anisocytosis 1+; Hypochromasia 2+; Lymphocytes % 5 % (10-50); Microcytosis 1+; Monocytes % 4 % (2-9); Neutrophils % 91 % (42-76); Platelet Estimate Normal; Prothrombin Time 12.8 seconds (10.1-12.5); Total Cells Counted 100
[2021-03-20 12:17] LABS: INR 1.09 (0.9-1.1)
--- NOTE | 2021-03-20 13:49 | XR_ITS ---
PROCEDURE: XR CHEST 2V CLINICAL HISTORY: POST BX, EXPIRATION the COMPARISON: CR CXR CHEST(2 VIEWS-NOT PORTABLE) from 09/27/2015 CR CXR2V XR chest 2V from 08/21/[address] HR CHEST X3 from 11/13/2020 CR XR CHEST PORTABLE from 01/18/[address] CHEST WO CON from 02/23/2021 FINDINGS: PA and lateral expiration views are obtained post biopsy showing no evidence of pneumothorax. Chronic interstitial lung disease noted with cardiomegaly. There is a lingular lung mass which is increased in size now measuring approximately 5 cm x 5 cm previously 2.7 cm. No acute bony findings. IMPRESSION: No evidence of pneumothorax status post CT directed biopsy. Enlarging mass within the lingula Pulmonary fibrosis Dictated by: Simone Lopez MD 03/20/2021 14:02 Simone Lopez MD in [facility] 03/20/2021 14:02
--- NOTE | 2021-03-20 16:30 | XR_ITS ---
PROCEDURE: XR CHEST 2V CLINICAL HISTORY: EXPIRATION, POST BIOPSY COMPARISON: CR CXR2V XR chest 2V from 08/21/2018 CR XR CHEST PORTABLE from 01/18/[address] CHEST WO CON from 02/23/[address] BIOPSY GUIDED NEEDLE from 03/20/2021 CR XR CHEST 2V from 03/20/2021 FINDINGS: S/p lingular mass biopsy. No evidence of pneumothorax. Lingular mass with diffuse pulmonary fibrosis once again noted. There is trace left-sided effusion. Prior CABG with multiple fragmented sternotomy wires IMPRESSION: No evidence of pneumothorax status post lingular mass biopsy Dictated by: Simone Lopez MD 03/20/2021 16:44 Simone Lopez MD in [facility] 03/20/2021 16:44
== END ==
PROVIDERS: Radiology Diagnostic Radiology; PCP Nurse Practitioner Family; Visit Provider Internal Medicine Pulmonary Disease
DX: R91.8 Other nonspecific abnormal finding of lung field (principal)
CPT/HCPCS: 36415; 71046; 77012; 82962; 85007; 85025; 85610; 85730

== ENCOUNTER 2021-03-23 12:05 | Emergency (ER) | payer BC, SELFPAY ==
[2021-03-23 12:15] VITALS: BP 107/69; PULSE 83; RESP 29; TEMP 36.9; O2SAT 93; BMI 37.8
--- NOTE | 2021-03-23 12:15 | XR_ITS ---
PROCEDURE: XR CHEST PORTABLE CLINICAL HISTORY: soa COMPARISON: CR XR CHEST PORTABLE from 01/18/2021 CR XR CHEST 2V from 03/20/2021 CR XR CHEST 2V from 03/20/[address] ANGIO CHEST PE PROTOCOL from 03/23/2021 FINDINGS: 5.5 cm mass present in the left lower lung zone within the lingula similar to 03/20/2021. No evidence of pneumothorax. Diffuse pulmonary fibrotic changes are present. Normal heart size. Prior CABG. Small left effusion. IMPRESSION: No change pulmonary fibrosis with mass within the lingula consistent with neoplasm Dictated by: Simone Lopez MD 03/23/2021 14:30 Simone Lopez MD in [facility] 03/23/2021 14:30
--- NOTE | 2021-03-23 12:15 | CT_ITS ---
PROCEDURE: CT ANGIO CHEST PE PROTOCOL CLINCIAL INDICATION: hypoxia, recent biopsy COMPARISON: CT CT CHEST WO CON from 02/23/[address] BIOPSY GUIDED NEEDLE from 03/20/2021 TECHNIQUE: IV Contrast: 70ML Isovue 370 Axial images obtained with sagittal and coronal reformats. All CT scans at the facility use one or more dose reduction, viz: automated exposure control, ma/kV adjustment per patient size (including targeted exams where dose is matched to indication, i.e. head), or iterative reconstruction technique. FINDINGS: HEART AND MEDIASTINAL STRUCTURES: No evidence of pulmonary embolus or aortic aneurysm or dissection. There has been a prior CABG. Enlarged mediastinal lymph nodes are present in the left anterior mediastinum. Mildly prominent nodes are also present in the precarinal region on the right and in the right anterior mediastinum as well as the precarinal region and along the left mainstem bronchus. LUNGS AND PLEURAL SURFACES: There is an enlarging mass within the lingula measuring up to 7.8 cm AP, 4.4 cm transverse, and 4.6 cm cephalad caudad. This is similar compared to 03/20/2021 but has increased since 02/23/2021. Those dimensions were 3.5 cm AP, 3 cm transverse, and 2.9 cm cephalad caudad. Recent biopsy demonstrated this mass to represent malignant non-small cell carcinoma. There is no evidence of pneumothorax. There is diffuse pulmonary fibrotic changes with scattered small nodular opacities in both upper and lower lobes suspicious for metastatic foci unchanged from 03/20/2021 but having developed since 02/23/2021. There is trace left-sided effusion. There is mild calcification of the posterior pleural surface on the left and along the left hemidiaphragm posteriorly. No lobar consolidation or collapse. Faint ground-glass attenuation in the lower lobes. BONY STRUCTURES: No acute bony abnormalities apparent. UPPER ABDOMEN: There is some faint subcutaneous calcification in the right lower lateral chest nonspecific. Nodular involvement of the adrenal glands noted left greater than right nonspecific. Small periportal lymph nodes. ADDITIONAL FINDINGS: No other significant abnormalities. IMPRESSION: 1. No evidence of pulmonary embolus. 2. Left upper lobe mass involving the lingula which is increased in size from 02/23/2021 biopsy-proven malignant [id number] carcinoma with multiple pulmonary nodules consistent with intrapulmonary metastasis and enlarged mediastinal lymph nodes/mediastinal metastasis with trace left-sided effusion 3. Diffuse pulmonary fibrosis Dictated by: Simone Lopez MD 03/23/2021 14:13 Simone Lopez MD in [facility] 03/23/2021 14:13
--- NOTE | 2021-03-23 12:38 | [facility].EDGENADL ---
ED Disposition Clinical Impression: Bronchitis Disposition: Home, Self-Care Condition on Discharge: Good Prescriptions: Amoxicillin/Potassium Clav [Augmentin 875-125 Tablet] 1 tab PO Q12H 7 Days #14 tab Transmission Status: Pending to [id number] predniSONE [Prednisone 50mg Tab] 50 mg PO DAILY #5 tab Transmission Status: Pending to [id number] Referrals: Jen Iniguez APRN [Primary Care Provider] - - Critical Care Critical Care Time: No Attestation: On 03/23/21, the high probability of a clinically significant, sudden or life threatening deterioration of the following system(s) required my full and direct attention, intervention and personal management. The time I documented below is in addition to time spent performing reported procedures but includes the following listed in this critical care notation. Medical Decision Making - Medical Records Medical records reviewed: Yes: I reviewed the patient's medical records. - Carrillo Inquiry Pt receiving controlled substance: No Vital Signs: 03/23/21 12:15 03/23/21 13:00 Temperature 98.4 F Temperature Source Oral Pulse Rate 86 Pulse Rate [Right Radial] 83 Respiratory Rate 29 H 28 H Blood Pressure 100/60 L Blood Pressure [Right Arm] 107/69 L Blood Pressure Mean 74 Blood Pressure Mean [Right Arm] 81 Blood Pressure Source [Right Arm] Automatic Cuff Blood Pressure Position [Right Arm] Sitting 02 Sat by Pulse Oximetry 93 L 92 L Oxygen Delivery Method Nasal Cannula Nasal Cannula Oxygen Flow Rate (LPM) 3 3 - Lab Data Lab Results 03/23/21 12:15: VBG pH 7.32, VBG pCO2 58.1 H, VBG pO2 27.1 L, VBG HCO3 29.5, VBG Total CO2 31.2 H, VBG O2 Saturation 53.5, VBG Base Excess 3.4 H 03/23/21 12:35: Troponin I 0.25 H 03/23/21 12:35: WBC 19.4 H, RBC 4.08 L, Hgb 11.4 L, Hct 35.4 L, MCV 86.8, MCH 28.0, MCHC 32.3, RDW 16.8, Plt Count 375, MPV 7.8, Neut % (Auto) 89.7 H, Lymph % (Auto) 6.0 L, [place] % (Auto) 3.6, Eos % (Auto) 0.6, Baso % (Auto) 0.1, Neut # (Auto) 17.4 H, Lymph # (Auto) 1.2, [place] # (Auto) 0.7, Eos # (Auto) 0.1, Baso # (Auto) 0.0, Total Counted 100, Neutrophils % (Manual) 87 H, Band Neutrophils % 2.0, Lymphocytes % (Manual) 6 L, Monocytes % (Manual) 3, Eosinophils % (Manual) 2, Platelet Estimate Normal, Hypochromasia 1+, Anisocytosis 1+ 03/23/21 12:35: Sodium 131 L, Potassium 5.1, Chloride 91 L, Carbon Dioxide 32 H, Anion Gap 13.1, BUN 22 H, Creatinine 1.70 H, Estimated Creat Clear 78, Estimated GFR 41 L, Est GFR ( Amer) 50 L, Glucose 433 H*, Calcium 9.0, Magnesium 1.6, Total Bilirubin 0.5, AST 33, ALT 25, Alkaline Phosphatase 246 H, NT-Pro-B Natriuret Pep 2520 H, Total Protein 8.2, Albumin 3.5, Globulin 4.7 H, Albumin/Globulin Ratio 0.7 L Result diagrams: 03/23/21 12:35 03/23/21 12:35 Orders (Tests/Meds): ED MEDICATIONS Discontinued Medications Generic Name Dose Route Start Last Admin Trade Name Lucas PRN Reason Stop Dose Admin Insulin Human Lispro 20 unit 03/23/21 13:41 Humalog 100 Units/Ml 3ml Vial (Ssi) SQ 03/23/21 13:42 ONCE ONE Iopamidol 75 ml 03/23/21 13:46 03/23/21 13:48 Iopamidol-370 (76%);100ml Bottle IV 03/23/21 13:47 75 ml ONCE ONE Administration Levalbuterol HCl 1.25 mg 03/23/21 12:45 03/23/21 12:27 Levalbuterol 1.25mg/3ml Neb IH 03/23/21 12:46 1.25 mg ONCE ONE Administration Prednisone 40 mg 03/23/21 12:42 03/23/21 12:45 Prednisone 20mg Tab PO 03/23/21 12:43 40 mg ONCE ONE Administration Sodium Chloride 10 ml 03/23/21 13:46 03/23/21 13:48 Sodium Chloride 0.9% 10ml Syr (Rad Only) IV 03/23/21 13:47 10 ml ONCE ONE Administration ORDERS Category Date Time Status Troponin I Q3H Lab 03/23/21 15:15 Ordered Medical Decision Narrative: 60-year-old male presents with mild respiratory distress after lung biopsy procedure. Vital signs are stable nontoxic-appearing. Dr. Trujillo dilated him as well and recommended CT pulmonary embolism scan as wel
[2021-03-23 12:51] LABS: Basophils % 0.1 % (0.1-2.0); Eosinophils # 0.1 K/mm3 (0.0-0.4); Eosinophils % 0.6 % (0.1-12.0); Hematocrit 35.4 % (42.0-52.0); Hemoglobin 11.4 g/dL (14.1-18.0); Lymphocytes # 1.2 K/mm3 (0.7-4.5); Mean Corpuscular HGB Conc 32.3 g/dL (31.8-35.4); Mean Corpuscular Volume 86.8 fl (80-94); Mean Platelet Volume 7.8 fl (7.4-10.4); Monocytes # 0.7 K/mm3 (0.1-1.0); Monocytes % 3.6 % (1.7-9.3); Neutrophils # 17.4 K/mm3 (1.8-7.8); Neutrophils % 89.7 % (37.0-80.0); Platelet Count 375 K/mm3 (142-424); Red Blood Count 4.08 M/mm3 (4.60-6.20); Red Cell Distribution Width 16.8 % (11.5-17.5); White Blood Count 19.4 K/mm3 (4.8-10.8)
[2021-03-23 12:59] LABS: MANUAL DIFFERENTIAL MANUAL DIFFERENTIAL (MANUAL DIFF)
[2021-03-23 13:00] VITALS: BP 100/60; PULSE 86; RESP 28; O2SAT 92
--- NOTE | 2021-03-23 13:10 | ECG_ITS ---
APPROVED REPORT Exam: Resting ECG HR:86 bpm ECG Measurements Heart Rate 86 AXES ME 128 P 48 QRSd 130 QRS -9 QT 394 T 60 QTc 471 Conclusion Normal sinus rhythm Right bundle branch block Abnormal ECG Electronically signed by : Franco Temple MD 03/23/2021 16:53:27
[2021-03-23 13:12] LABS: Chloride 91 mmol/L (98-107); Potassium 5.1 mmoL/L (3.5-5.1); Sodium 131 mmol/L (136-145)
[2021-03-23 13:15] LABS: Alanine Aminotransferase 25 U/L (12-78); Albumin Level 3.5 g/dl (3.5-5.0); Albumin/Globulin Ratio 0.7 (1.1-1.8); Alkaline Phosphatase 246 U/L (38-126); Anion Gap 13.1 mEq/L (5-15); Anisocytosis 1+; Aspartate Amino Transferase 33 U/L (17-59); Bilirubin,Total 0.5 mg/dl (0.2-1.3); Blood Urea Nitrogen 22 mg/dl (9-20); Carbon Dioxide 32 mmol/L (22.0-30.0); Creatinine Clearance Estimated 78 mL/min (50-200); Eosinophils % 2 % (0-3); Estimated Glomerular Filt Rate 41 ml/min (>60); GFR (African American) 50 ML/MIN (>60); Globulin 4.7 g/dL (1.3-3.2); Hypochromasia 1+; Lymphocytes % 6 % (10-50); Magnesium 1.6 mg/dl (1.6-2.3); Monocytes % 3 % (2-9); Neutrophils % 87 % (42-76); Platelet Estimate Normal; Total Cells Counted 100; Total Protein,Serum 8.2 g/dl (6.3-8.2)
[2021-03-23 13:19] LABS: Glucose 433 mg/dl (74-100)
--- NOTE | 2021-03-23 13:20 | PC.NURSE ---
Aurea from lab called critic BG 433mg/dl , confirmed and repeated back.
[2021-03-23 13:24] LABS: NT Pro Brain Natriuretic Pep. 2520 pg/mL (0-125)
[2021-03-23 14:06] LABS: VBG Base Excess 3.4 mmol/L (-2.4-2.3); VBG HCO3 29.5 mmol/L (23-30); VBG Oxygen Saturation 53.5 % (50-70); VBG PCO2 58.1 mmol/L (35-51); VBG PH 7.32 mmol/L (7.31-7.41); VBG PO2 27.1 mmol/L (28-40); VBG Total CO2 31.2 mmol/L (23-27)
[2021-03-23 14:29] LABS: Troponin I 0.25 ng/ml (0.00-0.034)
[2021-03-23 15:17] VITALS: BP 91/40; PULSE 92; RESP 18; TEMP 36.7; O2SAT 95
== END 2021-03-23 15:20 | disposition home or self-care (01) ==
PROVIDERS: Emergency Provider Emergency Medicine; PCP Nurse Practitioner Family
DX: J20.9 Acute bronchitis, unspecified (principal); I50.9 Heart failure, unspecified; I25.10 Atherosclerotic heart disease of native coronary artery without angina pectoris; E11.9 Type 2 diabetes mellitus without complications; E78.5 Hyperlipidemia, unspecified; I10 Essential (primary) hypertension; E03.9 Hypothyroidism, unspecified; Z86.16 Personal history of COVID-19; F17.210 Nicotine dependence, cigarettes, uncomplicated; Z79.899 Other long term (current) drug therapy
CPT/HCPCS: 71045; 71275; 80053; 82803; 83735; 83880; 84484; 85007; 85025; 93005; 99283; Q9967

== ENCOUNTER 2021-03-28 05:29 | Inpatient (IN) | payer BC, MEDICARE, SELFPAY ==
[2021-03-28] VITALS (9 sets, daily range): BP systolic 90–122; BP diastolic 40–71; PULSE 65–108; RESP 16–24; TEMP 36.3–39.1; O2SAT 89–100; BMI 35.9; BMI 35.0
--- NOTE | 2021-03-28 05:31 | ECG_ITS ---
APPROVED REPORT Exam: Resting ECG HR:103 bpm ECG Measurements Heart Rate 103 AXES MI 118 P 75 QRSd 124 QRS -69 QT 344 T 78 QTc 450 Conclusion Sinus tachycardia Possible Left atrial enlargement Right bundle branch block Left anterior fascicular block Bifascicular block Abnormal ECG Electronically signed by : Franco Temple MD 03/30/2021 12:11:09
--- NOTE | 2021-03-28 05:48 | XR_ITS ---
PROCEDURE INFORMATION: Exam: XR Chest Exam date and time: 03/28/2021 5:48 AM Age: 60 years old Clinical indication: Shortness of breath; Additional info: SOA TECHNIQUE: Imaging protocol: XR of the chest. Views: 1 view. COMPARISON: CR XR CHEST PORTABLE 03/23/2021 1:30 PM FINDINGS: Lungs: There is a stable masslike area of opacification within the left lingula. There is diffuse interstitial lung disease. Pleural spaces: Unremarkable. No pleural effusion. No pneumothorax. Heart/Mediastinum: Unremarkable. No cardiomegaly. Bones/joints: Unremarkable. IMPRESSION: Stable diffuse interstitial lung disease with superimposed lingular mass.
[2021-03-28 05:49] LABS: Coronavirus 19, PCR Not Detected (NotDetected); Influenza A, PCR Not Detected (NotDetected); Influenza B, PCR Not Detected (NotDetected)
[2021-03-28 05:57] LABS: ABG Base Excess 5.5 mmol/L (-2.4-2.3); ABG HCO3 29.3 mmhg (22.0-26.0); ABG Oxygen Saturation 90 % (90-100); ABG PCO2 41.9 mmhg (35.0-45.0); ABG PH 7.46 mmol/L (7.35-7.45); ABG PO2 51.9 mmhg (80-100); ABG TCO2 30.6 mmhg (23-27)
[2021-03-28 05:58] LABS: Allen's Test Acceptable; Oxygen 3L %; Source Right Radial
--- NOTE | 2021-03-28 05:58 | CT_ITS ---
PROCEDURE INFORMATION: Exam: CT Lumbar Spine Without Contrast Exam date and time: 03/28/2021 5:58 AM Age: 60 years old Clinical indication: Low back pain; Additional info: Weakness and back pain TECHNIQUE: Imaging protocol: Computed tomography images of the lumbar spine without contrast. Radiation optimization: All CT scans at this facility use at least one of these dose optimization techniques: automated exposure control; mA and/or kV adjustment per patient size (includes targeted exams where dose is matched to clinical indication); or iterative reconstruction. COMPARISON: CT THORACIC SPINE WO CON 03/28/2021 6:44 AM FINDINGS: Vertebrae: There is a lumbarized S1 body with a rudimentary disc. There is 4 mm of grade 1 retrolisthesis of L5 with respect to S1. Normal vertebral body alignment is otherwise preserved. There is focal superior endplate depression at L4 to the left of midline, potentially a Schmorl's node. No acute fracture. Normal alignment. Discs/Spinal canal/Neural foramina: At L5/S1, there is diffuse disc bulging/uncovering related to listhesis and moderate facet hypertrophy. There is moderate bilateral neural foraminal narrowing. Soft tissues: Unremarkable. IMPRESSION: No acute findings.
--- NOTE | 2021-03-28 05:58 | CT_ITS ---
PROCEDURE INFORMATION: Exam: CT Cervical Spine Without Contrast Exam date and time: 03/28/2021 5:58 AM Age: 60 years old Clinical indication: Neck pain; Additional info: Weakness and back pain TECHNIQUE: Imaging protocol: Computed tomography images of the cervical spine without contrast. Radiation optimization: All CT scans at this facility use at least one of these dose optimization techniques: automated exposure control; mA and/or kV adjustment per patient size (includes targeted exams where dose is matched to clinical indication); or iterative reconstruction. COMPARISON: None available. FINDINGS: Vertebrae: There is straightening of the normal cervical lordosis. No acute fracture. Normal alignment. C2-C3: No significant disc protrusion. No severe spinal canal stenosis. No significant neural foraminal narrowing. C3-C4: There is a diffuse disc osteophyte complex. There is mild right and moderate left facet hypertrophy. There is mild right and moderate to severe left neural foraminal narrowing. C4-C5: There is a diffuse disc osteophyte complex. There is mild facet hypertrophy. The spinal canal and neural foramina are patent. C5-C6: There is a diffuse disc osteophyte complex. There is mild facet hypertrophy. There is moderate left neural foraminal narrowing. C6-C7: There is a diffuse disc osteophyte complex. There is mild facet hypertrophy. There is severe right and moderate to severe left neural foraminal narrowing. C7-T1: No significant disc protrusion. No severe spinal canal stenosis. No significant neural foraminal narrowing. Soft tissues: Unremarkable. IMPRESSION: 1. No acute findings. 2. Degenerative disc disease and spondylosis. At C6/7, there is severe right and moderate to severe left neural foraminal narrowing.
--- NOTE | 2021-03-28 05:58 | CT_ITS ---
PROCEDURE INFORMATION: Exam: CT Thoracic Spine Without Contrast Exam date and time: 03/28/2021 5:58 AM Age: 60 years old Clinical indication: Pain in thoracic spine; Additional info: Weakness and back pain TECHNIQUE: Imaging protocol: Computed tomography images of the thoracic spine without contrast. Radiation optimization: All CT scans at this facility use at least one of these dose optimization techniques: automated exposure control; mA and/or kV adjustment per patient size (includes targeted exams where dose is matched to clinical indication); or iterative reconstruction. COMPARISON: CT CERVICAL SPINE WO CON 03/28/2021 6:40 AM FINDINGS: Vertebrae: No acute fracture. Normal alignment. Discs/Spinal canal/Neural foramina: No significant disc protrusion. No severe spinal canal stenosis. No significant neural foraminal narrowing. Soft tissues: Unremarkable. IMPRESSION: No acute abnormality.
[2021-03-28 06:01] LABS: Basophils % 0.1 % (0.1-2.0); Eosinophils % 0.2 % (0.1-12.0); Hematocrit 37.6 % (42.0-52.0); Hemoglobin 12.3 g/dL (14.1-18.0); Lymphocytes # 1.2 K/mm3 (0.7-4.5); Lymphocytes % 5.4 % (10-50); Mean Corpuscular HGB Conc 32.6 g/dL (31.8-35.4); Mean Corpuscular Volume 82.9 fl (80-94); Monocytes # 1.6 K/mm3 (0.1-1.0); Monocytes % 7.6 % (1.7-9.3); Neutrophils # 18.6 K/mm3 (1.8-7.8); Neutrophils % 86.7 % (37.0-80.0); Platelet Count 474 K/mm3 (142-424); Red Blood Count 4.54 M/mm3 (4.60-6.20); Red Cell Distribution Width 16.8 % (11.5-17.5); White Blood Count 21.4 K/mm3 (4.8-10.8)
[2021-03-28 06:04] LABS: Alanine Aminotransferase 40 U/L (12-78); Albumin Level 3.5 g/dl (3.5-5.0); Albumin/Globulin Ratio 0.8 (1.1-1.8); Alkaline Phosphatase 221 U/L (38-126); Anion Gap 10.5 mEq/L (5-15); Aspartate Amino Transferase 44 U/L (17-59); Bilirubin,Total 0.7 mg/dl (0.2-1.3); Blood Urea Nitrogen 32 mg/dl (9-20); Calcium 9.2 mg/dl (8.4-10.2); Carbon Dioxide 33 mmol/L (22.0-30.0); Chloride 94 mmol/L (98-107); Creatinine Clearance Estimated 74 mL/min (50-200); Estimated Glomerular Filt Rate 41 ml/min (>60); GFR (African American) 50 ML/MIN (>60); Globulin 4.5 g/dL (1.3-3.2); Glucose 139 mg/dl (74-100); Potassium 4.5 mmoL/L (3.5-5.1); Sodium 133 mmol/L (136-145)
[2021-03-28 06:06] LABS: Lactic Acid 1.4 mmol/L (0.7-2.1)
--- NOTE | 2021-03-28 06:19 | CT_ITS ---
PROCEDURE INFORMATION: Exam: CTA Chest With Contrast Exam date and time: 03/28/2021 6:19 AM Age: 60 years old Clinical indication: Shortness of breath; Additional info: SOA TECHNIQUE: Imaging protocol: Computed tomographic angiography of the chest with contrast. 3D rendering (Not supervised by radiologist): MIP and/or 3D reconstructed images were created by the technologist. Radiation optimization: All CT scans at this facility use at least one of these dose optimization techniques: automated exposure control; mA and/or kV adjustment per patient size (includes targeted exams where dose is matched to clinical indication); or iterative reconstruction. Contrast material: ISVOUE 370; Contrast volume: 70 ml; Contrast route: INTRAVENOUS (IV); COMPARISON: CT ANGIO CHEST PE PROTOCOL 03/23/2021 1:28 PM FINDINGS: Pulmonary arteries: Normal. No pulmonary emboli. Aorta: Unremarkable. No aortic aneurysm. No aortic dissection. Lungs: There is diffuse pulmonary fibrotic change. There is a superimposed area of masslike opacification within the lingula, compatible with known neoplasm. There are stable small, scattered pulmonary nodules bilaterally, worrisome for metastases as detailed previously. Pleural spaces: There is a trace left pleural effusion versus focal pleural thickening. Heart: Unremarkable. No cardiomegaly. No pericardial effusion. Lymph nodes: There is prevascular, paratracheal and AP window lymphadenopathy, unchanged. There are prominent subcarinal and hilar lymph nodes. Liver: There is diffuse fatty infiltration of the liver. Gallbladder and bile ducts: The gallbladder is surgically absent. Adrenal glands: There is diffuse nodularity of the left adrenal gland, indeterminate. Bones/joints: Unremarkable. No acute fracture. Soft tissues: Unremarkable. IMPRESSION: 1. No pulmonary embolism. 2. Stable left lingular mass, compatible with known neoplasm. Stable scattered metastases. Stable adenopathy.
[2021-03-28 06:23] LABS: MANUAL DIFFERENTIAL MANUAL DIFFERENTIAL (MANUAL DIFF)
[2021-03-28 06:29] LABS: Microscopic, Urine URINE MICROSCOPIC (MICROSCOPIC)
[2021-03-28 06:31] LABS: Appearance,Urine CLEAR (Clear); Bilirubin,Urine Negative (Negative); Blood, Urine Negative (Negative); Color,Urine YELLOW (Yellow); Glucose,Urine (UA) 1+ (Negative); Ketones,Urine Negative (Negative); Leukocyte Esterase,Urine Negative (Negative); Nitrate,Urine Negative (Negative); Protein,Urine TRACE (Negative)
--- NOTE | 2021-03-28 06:33 | HMH.EDWEAK ---
ED Disposition Clinical Impression: Febrile illness, acute, SIRS (systemic inflammatory response syndrome), Mass of left lung Disposition: Admitted As Inpatient Condition on Discharge: Good Referrals: Jen Iniguez APRN [Primary Care Provider] - - Critical Care Critical Care Time: No Attestation: On 03/28/21, the high probability of a clinically significant, sudden or life threatening deterioration of the following system(s) required my full and direct attention, intervention and personal management. The time I documented below is in addition to time spent performing reported procedures but includes the following listed in this critical care notation. Medical Decision Making - Medical Records Medical records reviewed: Yes: I reviewed the patient's medical records. - Carrillo Inquiry Pt receiving controlled substance: No Vital Signs: 03/28/21 05:29 Temperature 102.3 F H Temperature Source Rectal Pulse Rate [Right Radial] 104 H Respiratory Rate 24 Blood Pressure [Right Arm] 113/66 Blood Pressure Mean [Right Arm] 81 Blood Pressure Source [Right Arm] Automatic Cuff Blood Pressure Position [Right Arm] Supine 02 Sat by Pulse Oximetry 89 L Oxygen Delivery Method Room Air - Lab Data Lab results reviewed: Yes: I reviewed the patient's lab results. Lab Results 03/28/21 05:30: SARS-CoV-2 (PCR) Not detected, Influenza A Untype (PCR) Not detected, Influenza Type B (PCR) Not detected 03/28/21 05:30: WBC 21.4 H*, RBC 4.54 L, Hgb 12.3 L, Hct 37.6 L, MCV 82.9, MCH 27.0, MCHC 32.6, RDW 16.8, Plt Count 474 H, MPV 8.0, Neut % (Auto) 86.7 H, Lymph % (Auto) 5.4 L, Dolores % (Auto) 7.6, Eos % (Auto) 0.2, Baso % (Auto) 0.1, Neut # (Auto) 18.6 H, Lymph # (Auto) 1.2, Dolores # (Auto) 1.6 H, Eos # (Auto) 0.0, Baso # (Auto) 0.0, Total Counted 100, Neutrophils % (Manual) 87 H, Lymphocytes % (Manual) 6 L, Monocytes % (Manual) 7, Platelet Estimate Slight increase, RBC Morphology Normal, ESR 100 H 03/28/21 05:30: Sodium 133 L, Potassium 4.5, Chloride 94 L, Carbon Dioxide 33 H, Anion Gap 10.5, BUN 32 H, Creatinine 1.70 H, Estimated Creat Clear 74, Estimated GFR 41 L, Est GFR ( Amer) 50 L, Glucose 139 H, Calcium 9.2, Total Bilirubin 0.7, AST 44, ALT 40, Alkaline Phosphatase 221 H, C-Reactive Protein 223.0 H, Total Protein 8.0, Albumin 3.5, Globulin 4.5 H, Albumin/Globulin Ratio 0.8 L, Procalcitonin 0.675 03/28/21 05:30: Lactate 1.4 03/28/21 05:50: Specimen Source Right radial, O2 % 3l, ABG pH 7.46 H, ABG pCO2 41.9, ABG pO2 51.9 L, ABG HCO3 29.3 H, ABG Total CO2 30.6 H, ABG O2 Saturation 90, ABG Base Excess 5.5 H, Simone Test Acceptable 03/28/21 06:05: Urine Color Yellow, Urine Appearance Clear, Urine pH 6.0, Ur Specific Brook 1.010, Urine Protein Trace, Urine Glucose (UA) 1+, Urine Ketones Negative, Urine Blood Negative, Urine Nitrate Negative, Urine Bilirubin Negative, Urine Urobilinogen 1.0, Ur Leukocyte Esterase Negative, Urine RBC Occasional, Urine WBC 3-5, Ur Squamous Epith Cells Occasional, Urine Bacteria None Result diagrams: 03/28/21 05:30 03/28/21 05:30 Orders (Tests/Meds): ED MEDICATIONS Generic Name Dose Route Start Last Admin Trade Name Freq PRN Reason Stop Dose Admin Sodium Chloride 1,000 mls @ 999 mls/hr 03/28/21 06:00 03/28/21 05:57 Sod Chlor 0.9% 1000ml Bag IV 03/28/21 07:00 999 mls/hr .[id number] Administration Discontinued Medications Generic Name Dose Route Start Last Admin Trade Name Freq PRN Reason Stop Dose Admin Acetaminophen 1,000 mg 03/28/21 05:48 03/28/21 05:55 Acetaminophen 500mg Tab PO 03/28/21 05:49 1,000 mg ONCE ONE Administration Ibuprofen 600 mg 03/28/21 05:48 03/28/21 05:55 Ibuprofen 600 Mg Tablet PO 03/28/21 05:49 600 mg ONCE ONE Administration ORDERS Category Date Time Status CT cervical spine wo con Stat Cat Scan 03/28/21 05:[address] lumbar spine wo con Stat Cat Scan 03/28/21 05:[address] thoracic spine wo con Stat Cat Scan 03/28/21 05:58 Taken
[2021-03-28 06:39] LABS: RBC,Urine Occasional #/hpf (0-3); Squamous Epithelial Cell,Urine Occasional #/hpf (0-5)
[2021-03-28 06:44] LABS: Procalcitonin 0.675 ng/mL (0.0-2.0)
[2021-03-28 07:06] LABS: Lymphocytes % 6 % (10-50); Monocytes % 7 % (2-9); Neutrophils % 87 % (42-76); Total Cells Counted 100
[2021-03-28 07:07] LABS: Platelet Estimate Slight Increase; RBC Morphology Normal
[2021-03-28 07:10] LABS: Erythrocyte Sedimentation Rate 100 mm/hr (0-20)
--- NOTE | 2021-03-28 08:16 | PC.NURSE ---
attempted to call report to second floor, gerri asked if she could call me back
--- NOTE | 2021-03-28 09:03 | PC.NURSE ---
report called to carmelina vazquez on second floor at this time
--- NOTE | 2021-03-28 09:19 | HMH.HP ---
*Admission Date: 03/28/21 <Angela Johnson - 03/28/21 12:46> *Chief complaint: AMS; falls SOB and cough <Anegla Johnson - 03/28/21 12:46> *History of present illness: per ER documentation: reports pt has been weak and unable to stand today. She says he has been c/o back pain all day and lost control of his bladder on the way to the ED. Pt is able to answer questions appropriately but appears to be SOA w/ RA sat of 89%. Pt states he wears 3LNC at home and was recently diagnosed with lung cancer. 3LNC applied at this time. Pt denies N/V/D. Denies CP. Positive for rectal tone. Chest x-ray revealed stable diffuse interstitial lung disease with superimposed lingual mass. CT of the cervical spine reveals no acute changes with degenerative disc disease At C6/7 there is a severe right and moderate to severeLeft neural form L no narrowing. CT of the lumbar spine shows no acute changes. CT of the thoracic spine shows no acute abnormality. CTA of the chest with PE protocol reveals no pulmonary embolism. Stable Leg 1 OR mass compatible with known neoplasm.Stable adenopathy Following is Cardiology documentation: 60-year-old male presented to the ED for worsening generalized weakness for the past few days. Patient states he feels like his legs are giving out on him. Patient states he has fallen 2-3 times in the past few days due to weakness in his legs. Patient states on the way to the ED, he was incontinent of urine and states this is the first time that has ever happened. is at bedside. stated patient was incoherent of his surroundings this morning when he awoke and she felt concerned that he could have been having a stroke. Patient is followed by this cardiology group. Last appointment was in January 2021. Patient does have history of severe COPD in which she requires home oxygen at 3 L. Patient denies cough or fever. Patient does have history of coronary artery disease. Last heart catheterization was in March 2020 which was medical management. Patient does have history of CABG in 2011. Patient is currently on Plavix and aspirin for his CAD. Patient is a diabetic and which he states is controlled. History of hypertension. History of hyperlipidemia in which he is on a statin. Patient does continue to smoke at least 1 pack/day and has for 30+ years. Patient denies chest pain, tightness or pressure. Patient states that shortness of breath is no worse than usual. Patient does pulse ox at 90% with 3 L of O2 by nasal cannula. Slight swelling noted of the right lower extremity. Patient does complain and dizziness especially with position change. Patient denies palpitations. Patient states he is just unsure as to why he has felt so weak in the past few days. Patient is diagnosed with progression of interstitial lung disease. Patient states he was also told that he has a lung mass in which he is needing surgical clearance for a lung biopsy next week. Last echocardiogram was performed in March 2020 which revealed EF 55% with no regional wall motion abnormality. Vital signs are stable. EKG revealed normal sinus rhythm with right bundle branch block with a heart rate of 96 bpm. Pt with a history of newly diagnosed lung cancer scheduled for biopsy and is oxygen dependent, congestive heart failure, coronary artery disease with previous CO, diabetes mellitus, hyperlipidemia, hypertension vascular disease who was brought to the emergency room with altered mental status. Patient does not recall much of what happened this morning but states he awakened and was short of breath with a cough. He states he was unable to walk. The mobility has been a problem for the past few days. He states he has been eating and drinking well. He did see his clinical material handler yesterday and was scheduled to see his property and supply officer today. He denies any vomiting or nausea but states he does have diarrhea. The diarrhea is an ongoing problem. Above her notes from the ER as we
--- NOTE | 2021-03-28 11:24 | CA_ITS ---
APPROVED REPORT EXAM: Comprehensive 2D, Doppler, and color-flow Echocardiogram After [employer] Coordinator: Nikky Wild RVT Ht: 5 ft 10 in Wt: 244lbs BSA: 2.27 BP: 90/40 mmHg Indications: CAD,PRE-OP,CABG,STENT,LUNG CA,HOME 02,FEVER,SOA 2D Dimensions LVOT 2.05 cm (M/F) 1.5-2.5 LA Volume 45.70 mL LA Volume Index 20.13 mL/m2 (M/F) 16-34 M-Mode Dimensions RVDd 3.05 cm (0.9-2.6) LA Diam 4.10 cm (1.9-4.0) LVDd 4.77 cm (3.5-5.7) Ao Diam 3.52 cm (2.0-3.7) LVDs 2.43 cm (3.5-5.7) IVSd 0.71 cm (0.6-1.1) PWd 0.93 cm (0.6-1.1) EF (Teich) 80.40% FS 49.10% EDV (Teich) 106.00 mL TAPSE 1.88 (<1.7) ESV (Teich) 20.80 mL LV Diastology E Decel Time 270.00 (160-240 msec) E/A Ratio 1.0 MED E' 6.90 (< 7 cm/sec) E'/MED E' Ratio 15.94 (>14) LAT E' 9.60 (<10 cm/sec) E/LAT E' Ratio 11.46 (>14) Aortic Valve AO Peak GR. 5.80 mmHg Mitral Valve MV E Max Marlon. 110.00 (40-130 cm/s) MV A Velocity 109.00 (40-130 cm/s) E/A Ratio 1.01 MV Decel. Time 270.00 (160-240 ms) MV PHT 79.00 ms Pulmonary Valve PV Peak Velocity 73.00 (50-150 cm/s) Tricuspid Valve TR P. Velocity 278.00 cm/s RAP Estimate 10.00 mmHg RVSP 40.90 mmHg Left Ventricle Technically difficult study because of the patient factors and poor acoustic windows. Left atrium is mildly enlarged, left ventricle is normal size, mild concentric left ventricular hypertrophy, visually estimated ejection fraction 50% with no obvious regional wall motion abnormality, endocardial surfaces are poorly visualized. Grade 2 diastolic dysfunction seen with tissue Doppler evidence of raise left atrial pressure. Right Ventricle Right atrium and right ventricle are mildly enlarged with normal contractility. Aortic Valve Aortic valve is thickened and calcified without Doppler evidence of aortic stenosis or aortic insufficiency. Mitral Valve Mitral valve leaflets are minimally thickened, there is mild mitral regurgitation, there is no mitral stenosis. Tricuspid Valve Tricuspid valve grossly normal, there is mild tricuspid regurgitation, calculated right ventricular systolic pressure is 41 mmHg. Pulmonic Valve Pulmonic valve is poorly visualized. Great Vessels Aortic root is normal size. Pericardium No significant pericardial effusion noted. Conclusion 1. Technically difficult study because of the patient factors and poor acoustic windows. 2. Biatrial enlargement, normal left ventricular size, mild concentric left ventricular hypertrophy, visually estimated ejection fraction 50% with no regional wall motion abnormality, grade 2 diastolic dysfunction seen with tissue Doppler evidence of raise left atrial pressure. 3. Mildly enlarged right ventricle with normal contractility. 4. Thickened and calcified aortic valve without aortic stenosis or aortic insufficiency. 5. Mild mitral and tricuspid regurgitation, calculated right ventricular systolic pressure is 41mmHg. 6. No significant pericardial effusion noted. Electronically signed by : Xander Gunn MD 03/29/2021 13:38:13
--- NOTE | 2021-03-28 11:30 | PC.WOUNDNOTE ---
left midle finger
--- NOTE | 2021-03-28 11:30 | PC.WOUNDNOTE ---
right bottom of foot ulceration
--- NOTE | 2021-03-28 11:34 | ECG_ITS ---
APPROVED REPORT Exam: Resting ECG HR:95 bpm ECG Measurements Heart Rate 95 AXES AL 124 P 52 QRSd 136 QRS -26 QT 386 T 55 QTc 485 Conclusion Normal sinus rhythm Possible Left atrial enlargement Right bundle branch block Abnormal ECG Electronically signed by : Franco Temple MD 03/30/2021 12:07:21
--- NOTE | 2021-03-28 11:43 | HMH.CNCARD ---
History of Present Illness Consult date: 03/28/21 Requesting physician: Jason Owusu Consult reason: shortness of breath Chief complaint: shortness of breath and surgerical clearance History of present illness: 60-year-old male presented to the ED for worsening generalized weakness for the past few days. Patient states he feels like his legs are giving out on him. Patient states he has fallen 2-3 times in the past few days due to weakness in his legs. Patient states on the way to the ED, he was incontinent of urine and states this is the first time that has ever happened. is at bedside. stated patient was incoherent of his surroundings this morning when he awoke and she felt concerned that he could have been having a stroke. Patient is followed by this cardiology group. Last appointment was in January 2021. Patient does have history of severe COPD in which she requires home oxygen at 3 L. Patient denies cough or fever. Patient does have history of coronary artery disease. Last heart catheterization was in March 2020 which was medical management. Patient does have history of CABG in 2011. Patient is currently on Plavix and aspirin for his CAD. Patient is a diabetic and which he states is controlled. History of hypertension. History of hyperlipidemia in which he is on a statin. Patient does continue to smoke at least 1 pack/day and has for 30+ years. Patient denies chest pain, tightness or pressure. Patient states that shortness of breath is no worse than usual. Patient does pulse ox at 90% with 3 L of O2 by nasal cannula. Slight swelling noted of the right lower extremity. Patient does complain and dizziness especially with position change. Patient denies palpitations. Patient states he is just unsure as to why he has felt so weak in the past few days. Patient is diagnosed with progression of interstitial lung disease. Patient states he has currently been on steroids and antibiotics due to possible infection when he was evaluated in the ED a few days ago. Patient states he was also told that he has a lung mass in which he is needing surgical clearance for a lung biopsy next week. Last echocardiogram was performed in March 2020 which revealed EF 55% with no regional wall motion abnormality. Vital signs are stable. EKG revealed normal sinus rhythm with right bundle branch block with a heart rate of 96 bpm. Chest CTA:FINDINGS: Pulmonary arteries: Normal. No pulmonary emboli. Aorta: Unremarkable. No aortic aneurysm. No aortic dissection. Lungs: There is diffuse pulmonary fibrotic change. There is a superimposed area of masslike opacification within the lingula, compatible with known neoplasm. There are stable small, scattered pulmonary nodules bilaterally, worrisome for metastases as detailed previously. Pleural spaces: There is a trace left pleural effusion versus focal pleural thickening. Heart: Unremarkable. No cardiomegaly. No pericardial effusion. Lymph nodes: There is prevascular, paratracheal and AP window lymphadenopathy, unchanged. There are prominent subcarinal and hilar lymph nodes. Liver: There is diffuse fatty infiltration of the liver. Gallbladder and bile ducts: The gallbladder is surgically absent. Adrenal glands: There is diffuse nodularity of the left adrenal gland, indeterminate. Bones/joints: Unremarkable. No acute fracture. Soft tissues: Unremarkable. IMPRESSION: 1. No pulmonary embolism. 2. Stable left lingular mass, compatible with known neoplasm. Stable scattered metastases. Stable adenopathy. Echo:(04/30)Conclusion 1. Mildly enlarged left atrium, normal left ventricular size, mild concentric left ventricular hypertrophy, visually estimated ejection fraction 55% with no regional wall motion abnormality, Definity contrast was utilized to delineate the endocardial surfaces, there is no left ventricular thrombus seen, diastolic parameters are inconclusive.
--- NOTE | 2021-03-28 12:42 | HMH.PHAVTE ---
[facility] Pharmacy VTE Monitoring - Patient Demographics Admission date: 03/28/21 Report Date: 03/28/21 Time: 12:42 Allergies/Adverse Reactions: Patient Allergies Sulfa (Sulfonamide Antibiotics) Allergy (Severe, Verified 03/27/21 10:50) S-DIFF. BREATHING albuterol Allergy (Unknown, Verified 03/27/21 10:50) Unknown allergy reaction diphenhydramine Allergy (Unknown, Verified 03/27/21 10:50) NA-NAUSEA/VOMITING iron Allergy (Unknown, Verified 03/27/21 10:50) Unknown allergy reaction lisinopril Adverse Reaction (Intermediate, Verified 03/27/21 10:50) couldnt breathe Height: 1.78 m Weight: 110.762 kg Patient Problems: Current Active Problems Congestive heart failure (Acute) Febrile illness, acute (Acute) SIRS (systemic inflammatory response syndrome) (Acute) Mass of left lung (Acute) CAD (coronary artery disease) (Acute) Diabetes mellitus (Chronic) Dyspnea (Chronic) HLD (hyperlipidemia) (Chronic) HTN (hypertension) (Chronic) History of coronary artery bypass graft (Chronic) - VTE Risk Labs: VTE Related Lab Results Hgb 12.3 g/dL (14.1-18.0) L 03/28/21 05:30 Hct 37.6 % (42.0-52.0) L 03/28/21 05:30 Plt Count 474 K/mm3 (142-424) H 03/28/21 05:30 BUN 32 mg/dl (9-20) H 03/28/21 05:30 Creatinine 1.70 mg/dl (0.66-1.25) H 03/28/21 05:30 Estimated Creat Clear 74 mL/min (50-200) 03/28/21 05:30 Was VTE Risk Assessment Performed: Yes VTE Score: 5 VTE Risk Level: Low Risk Clinical Trial Participant: No - Prophylaxis VTE Prophylaxis Ordered?: Yes Types of VTE Prophylaxis: TEDS Knee High
[2021-03-28 12:43] LABS: POC Glucose,Bedside 309 (70-110)
--- NOTE | 2021-03-28 12:53 | HMH.PULMCON ---
*Admission Date: 03/28/21 *Reason for consult:: Acute on chronic hypoxic respiratory failure *History of present illness: Mr. Kaufman 60-year-old greater than [id number] smoking history, hypersensitive pneumonitis, pulmonary fibrosis, COPD recent diagnosis of malignancy status post CT-guided biopsy of the left-sided pulmonary nodule presented to hospital with worsening weakness and pain to be identifiable episodes along with leukocytosis, admitted to the hospital and pulmonary was called for further management [facility] History Medical History: Reports:: Cancer (lung), Congestive Heart Failure, Chronic Obstructive Pulmonary Disease (COPD), Coronary Artery Disease, Diabetes Mellitus Type 1, Diabetes Mellitus Type 2, Home Oxygen, Hyperlipidemia, Hypertension, Myocardial Infarction, Peripheral Vascular Disease, Renal Disease Denies:: Internal Pacemaker, MRSA, Seizures *Have you ever received a pneumonia vaccine?: Yes *Have you received a flu vaccine this season?: No Other Medical History: Reports: Hypothyroidism, Thyroid Disease. Denies: Blood Transfusion Reaction Other Surgeries: Yes: CABG, Cardiac Catheterization, Cholecystectomy, Coronary Stent. No: Pacemaker Amputation: No Fractures: No - *Social History Last grade of school completed: 11th or 12th Smoking Status: Current every day smoker Tobacco Type: cigarettes # Packs/Day (cigarettes): 1 Alcohol Intake: never Substance Use Type: denies use *Occupational Status:: disabled Housing: house Household Members: spouse *Travel in the last 8 weeks: None Family Hx:: Non-contributory, Cancer, Diabetes, Heart Attack ROS - Cons Reports anorexia, Reports body ache(s), Reports lack of energy, Reports malaise, Reports weakness - Card Reports shortness of breath, Reports shortness of breath with activity - Resp Respiratory: Reports shortness of breath, Reports chest congestion, Denies excessive phlegm production - GI Gastrointestingal: Denies: abdominal pain - [place] Musculoskeletal: Reports muscle cramps, Reports muscle weakness - Psych Reports abnormal sleep pattern Meds Home Medications Medication Instructions Recorded Confirmed Type allopurinol 100 mg tablet 100 mg PO BID tab 04/10/20 03/28/21 History aspirin 81 mg tablet,delayed 81 mg PO DAILY 04/10/20 03/28/21 History release cholecalciferol (vitamin D3) 25 25 mcg PO DAILY 04/10/20 03/28/21 History mcg (1,000 unit) capsule clopidogrel 75 mg tablet 75 mg PO DAILY tab 04/10/20 03/28/21 History duloxetine 60 mg capsule,delayed 60 mg PO DAILY cap 04/10/20 03/28/21 History release furosemide 80 mg tablet 40 mg PO BID tab 04/10/20 03/28/21 History gabapentin 800 mg tablet 800 mg PO TID tab 04/10/20 03/28/21 History levothyroxine 100 mcg tablet 100 mcg PO DAILY tab 04/10/20 03/28/21 History rosuvastatin 20 mg tablet 20 mg PO DAILY tab 04/10/20 03/28/21 History spironolactone 50 mg tablet 50 mg PO DAILY tab 04/10/20 03/28/21 History tizanidine 2 mg tablet 2 mg PO Q8H PRN tab 04/10/20 03/28/21 History trazodone 50 mg tablet 25 mg PO QHS tab 04/10/20 03/28/21 History losartan 25 mg tablet 25 mg PO DAILY tab 11/22/20 03/28/21 History semaglutide 0.25 mg SQ WEEKLY ml 11/22/20 03/28/21 History Nitroglycerin 0.4 mg SL [id number] PRN 1 Days #5 01/18/21 03/28/21 Rx tab.subl Tiotropium Br/Olodaterol HCl 2 puff INHALATION DAILY 03/20/21 03/28/21 History [Stiolto Respimat] levalbuterol HCL [Xopenex 0.63 mg IH TIDP PRN 03/20/21 03/28/21 History 0.63mg/3mL neb] Amoxicillin/Potassium Clav 1 tab PO Q12H 03/28/21 03/28/21 History [Augmentin 875-125 Tablet] metoprolol tartrate 50 mg tablet 50 mg PO BID #60 tab 03/28/21 Rx predniSONE [Prednisone 50mg Tab] 50 mg PO DAILY 03/28/21 03/28/21 History Allergies Allergy/AdvReac Type Severity Reaction Status Date / Time Sulfa (Sulfonamide Allergy Severe S-DIFF. Verified 03/27/21 10:50 Antibiotics) BREATHING albuterol Allergy Unknown Unknown Verified 03/27/21 10:50
--- NOTE | 2021-03-28 15:30 | PC.NURSE ---
patient has done well since arrival to floor. no significant complaints. independent with turns. needs assistance with walking. dajuan stated to hold plavix, and aspirin. has not followed his diabetic diet and states this is how he eats at home.
[2021-03-28 16:39] LABS: POC Glucose,Bedside 309 (70-110)
[2021-03-29] VITALS (7 sets, daily range): BP systolic 117–146; BP diastolic 60–75; PULSE 100–118; RESP 18–29; TEMP 36.4–37.5; O2SAT 90–95
[2021-03-29 00:55] LABS: POC Glucose,Bedside 380 (70-110)
--- NOTE | 2021-03-29 03:17 | PC.NURSE ---
A&OX4. TOLERATING 3LNC WHILE AWAKE AND USING BIPAP WHILE SLEEPING. PT HAS HAD NO C/O PAIN, COUGH, NA, SOA THUS FAR. PT UP INDEPENDENTLY IN ROOM. RESTING WELL T/O MAJORITY OF SHIFT. VSS WILL CONTINUE TO MONITOR.
[2021-03-29 05:09] LABS: POC Glucose,Bedside 208 (70-110)
[2021-03-29 06:26] LABS: Basophils % 0.1 % (0.1-2.0); Eosinophils % 0.1 % (0.1-12.0); Hematocrit 32.9 % (42.0-52.0); Hemoglobin 10.5 g/dL (14.1-18.0); Lymphocytes # 1.1 K/mm3 (0.7-4.5); Mean Corpuscular HGB Conc 31.9 g/dL (31.8-35.4); Mean Corpuscular Hemoglobin 26.8 pg (27.0-31.2); Mean Corpuscular Volume 84.1 fl (80-94); Mean Platelet Volume 8.5 fl (7.4-10.4); Monocytes # 0.9 K/mm3 (0.1-1.0); Monocytes % 4.4 % (1.7-9.3); Neutrophils # 19.4 K/mm3 (1.8-7.8); Neutrophils % 90.3 % (37.0-80.0); Platelet Count 353 K/mm3 (142-424); Red Blood Count 3.91 M/mm3 (4.60-6.20); Red Cell Distribution Width 16.8 % (11.5-17.5); White Blood Count 21.5 K/mm3 (4.8-10.8)
[2021-03-29 06:31] LABS: MANUAL DIFFERENTIAL MANUAL DIFFERENTIAL (MANUAL DIFF)
[2021-03-29 06:33] LABS: Chloride 101 mmol/L (98-107); Sodium 137 mmol/L (136-145)
[2021-03-29 06:34] LABS: Potassium 4.7 mmoL/L (3.5-5.1)
[2021-03-29 06:36] LABS: Anion Gap 8.7 mEq/L (5-15); Blood Urea Nitrogen 25 mg/dl (9-20); Calcium 8.6 mg/dl (8.4-10.2); Carbon Dioxide 32 mmol/L (22.0-30.0); Creatinine Clearance Estimated 82 mL/min (50-200); Estimated Glomerular Filt Rate 48 ml/min (>60); GFR (African American) 58 ML/MIN (>60); Glucose 207 mg/dl (74-100)
[2021-03-29 06:37] LABS: Magnesium 1.8 mg/dl (1.6-2.3)
[2021-03-29 07:53] LABS: Lymphocytes % 6 % (10-50); Monocytes % 4 % (2-9); Neutrophils % 90 % (42-76); Platelet Estimate Normal; RBC Morphology Normal; Total Cells Counted 100
--- NOTE | 2021-03-29 09:07 | HMH.ACPN2 ---
<Ibis Castro - Last Filed: 03/29/21 09:07> Internal Medicine - PN: Subj *Date: 03/29/21 *Time: 09:07 Interval history: Patient states he is not feeling well this morning. He is still having shortness of breath that is worse when he lays down or exerts himself. He denies any significant pain. He states he had a difficult time sleeping last night. He also states he has a difficult time using nasal oxygen due to enlarged adenoids. Pulmonology note reviewed and appreciated. Exam Vital signs and Labs for Last 24 Hours: Temp Pulse Resp BP Pulse Ox 99.5 F 100 H 26 H 144/73 H 94 L 03/29/21 07:39 03/29/21 07:39 03/29/21 07:39 03/29/21 07:39 03/29/21 07:39 Laboratory Results - last 24 hr 03/28/21 11:45: POC Glucose 309 H* 03/28/21 16:10: POC Glucose 309 H* 03/28/21 21:25: POC Glucose 380 H* 03/29/21 04:59: POC Glucose 208 H 03/29/21 05:59: WBC 21.5 H*, RBC 3.91 L, Hgb 10.5 L, Hct 32.9 L, MCV 84.1, MCH 26.8 L, MCHC 31.9, RDW 16.8, Plt Count 353 D, MPV 8.5, Neut % (Auto) 90.3 H, Lymph % (Auto) 5.0 L, [place] % (Auto) 4.4, Eos % (Auto) 0.1, Baso % (Auto) 0.1, Neut # (Auto) 19.4 H, Lymph # (Auto) 1.1, [place] # (Auto) 0.9, Eos # (Auto) 0.0, Baso # (Auto) 0.0, Total Counted 100, Neutrophils % (Manual) 90 H, Lymphocytes % (Manual) 6 L, Monocytes % (Manual) 4, Platelet Estimate Normal, RBC Morphology Normal 03/29/21 05:59: Sodium 137, Potassium 4.7, Chloride 101, Carbon Dioxide 32 H, Anion Gap 8.7, BUN 25 H, Creatinine 1.50 H, Estimated Creat Clear 82, Estimated GFR 48 L, Est GFR ( Amer) 58 L, Glucose 207 H, Calcium 8.6, Magnesium 1.8 I & O for Last 24 hours: Intake & Output 03/26/21 03/27/21 03/28/21 03/29/21 11:59 11:59 11:59 11:59 Intake Total 2319 / 2319 Output Total 350 / 350 Balance 1968 / 1968 Weight 244 lb 3 oz 244 lb 11.41 oz - Constitutional no acute distress - *Routine Respiratory Exam Present: decreased breath sounds. Absent: rales, wheezes - *Routine Cardiovascular Exam Present: RRR - *Routine Abdominal Exam Present: soft, normoactive bowel sounds. Absent: tenderness - *Routine Extremities Exam Absent: cyanosis, clubbing, edema - *Routine Skin Exam Present: warm. Absent: rash - *Routine Neurological Exam Present: alert, oriented X3 Assessment and Plan (1) Febrile illness, acute Status: Acute Category: Medical Code(s): R50.9 - Fever, unspecified (2) Mass of left lung Status: Chronic Category: Medical Code(s): R91.8 - Other nonspecific abnormal finding of lung field (3) CAD (coronary artery disease) Status: Chronic Category: Medical Code(s): I25.10 - Atherosclerotic heart disease of [place] coronary artery without angina pectoris (4) Congestive heart failure Status: Chronic Qualifiers: Heart failure type: diastolic Heart failure chronicity: chronic Qualified Code(s): I50.32 - Chronic diastolic (congestive) heart failure Category: Medical Code(s): I50.9 - Heart failure, unspecified (5) Dehydration Status: Acute Category: Medical Code(s): E86.0 - Dehydration (6) Diabetes mellitus Status: Chronic Qualifiers: Diabetes mellitus type: type 2 Diabetes mellitus alf insulin use: unspecified moth exterminator insulin use status Diabetes mellitus complication status: with other specified complication Qualified Code(s): E11.69 - Type 2 diabetes mellitus with other specified complication Category: Medical Code(s): E11.9 - Type 2 diabetes mellitus without complications (7) HLD (hyperlipidemia) Status: Chronic Qualifiers: Hyperlipidemia type: mixed hyperlipidemia Qualified Code(s): E78.2 - Mixed hyperlipidemia Category: Medical Code(s): E78.5 - Hyperlipidemia, unspecified (8) HTN (hypertension) Status: Chronic Qualifiers: Hypertension type: essential hypertension Category: Medical Code(s): I10 - Essential (primary) hypertension (9) Hypotension Status: Acute Category: Medical
--- NOTE | 2021-03-29 09:07 | HMH.PNCARD ---
Subjective Date: 03/29/21 Time: 09:00 Principal diagnosis: COPD Interval history: 60-year-old male admitted on 03/28/2021 with worsening generalized weakness for the past few days. Patient is followed by this cardiology group. Patient does have history of severe COPD in which he requires home oxygen at 3 L. Upon admission to facility, patient did have a low-grade temperature. Patient does have history of coronary artery disease. Last heart catheterization was in March 2020 which was medical management. Patient does have history of CABG in 2011. Patient is currently on Plavix and aspirin for his CAD. Patient is a diabetic and which he states is controlled. History of hypertension. History of hyperlipidemia in which he is on a statin. Patient does continue to smoke at least 1 pack/day and has for 30+ years. Patient denies chest pain, tightness or pressure. Patient states that shortness of breath is no worse than usual. Patient states he did have a rough night last night. Patient was unable to adjust to his BiPAP machine. Patient states he feels worse than he did yesterday. No swelling noted of the lower extremities. Low-grade temperature noted. Preliminary echocardiogram reveals EF 50 to 55% with calcification to the aortic valve and mild MR and TR noted. Vital signs stable. PCP is adjusting medications. Renal function is improving. Pulmonology is following patient with left lung mass. Waiting on official echocardiogram results. Pending on the results of the echocardiogram, medication and treatment therapies may be recommended. Discussed plan of care with Dr. Chambers. Orders received from Dr. Chambers. Waiting on official echocardiogram results. Pending on the results of the echocardiogram, medication and treatment therapies may be recommended. Please notify cardiology of any changes in patient status. Thank you for allowing cardiology to participate in the care of this patient. Exam Vital signs and Labs for Last 24 Hours: Temp Pulse Resp BP Pulse Ox 99.5 F 100 H 26 H 144/73 H 94 L 03/29/21 07:39 03/29/21 07:39 03/29/21 07:39 03/29/21 07:39 03/29/21 07:39 Laboratory Results - last 24 hr 03/28/21 11:45: POC Glucose 309 H* 03/28/21 16:10: POC Glucose 309 H* 03/28/21 21:25: POC Glucose 380 H* 03/29/21 04:59: POC Glucose 208 H 03/29/21 05:59: WBC 21.5 H*, RBC 3.91 L, Hgb 10.5 L, Hct 32.9 L, MCV 84.1, MCH 26.8 L, MCHC 31.9, RDW 16.8, Plt Count 353 D, MPV 8.5, Neut % (Auto) 90.3 H, Lymph % (Auto) 5.0 L, [place] % (Auto) 4.4, Eos % (Auto) 0.1, Baso % (Auto) 0.1, Neut # (Auto) 19.4 H, Lymph # (Auto) 1.1, [place] # (Auto) 0.9, Eos # (Auto) 0.0, Baso # (Auto) 0.0, Total Counted 100, Neutrophils % (Manual) 90 H, Lymphocytes % (Manual) 6 L, Monocytes % (Manual) 4, Platelet Estimate Normal, RBC Morphology Normal 03/29/21 05:59: Sodium 137, Potassium 4.7, Chloride 101, Carbon Dioxide 32 H, Anion Gap 8.7, BUN 25 H, Creatinine 1.50 H, Estimated Creat Clear 82, Estimated GFR 48 L, Est GFR ( Amer) 58 L, Glucose 207 H, Calcium 8.6, Magnesium 1.8 I & O for Last 24 hours: Intake & Output 03/26/21 03/27/21 03/28/21 03/29/21 23:59 23:59 23:59 23:59 Intake Total 360 / 1859 1958 / 1958 Output Total 350 / 350 Balance 360 / 1859 1609 / 1609 Weight 244 lb 11.41 oz - Constitutional moderate distress, obese, cooperative - *Routine HEENT Exam Head: Present: normocephalic ENT: Present: mucous membranes moist - *Routine Neck Exam Present: supple, full ROM, normal carotid upstroke. Absent: JVD, carotid bruit, lymphadenopathy - Routine Chest/Breast/Axilla Exam Chest wall: Present: tenderness. Absent: mass, pacemaker - *Routine Respiratory Exam Present: wheezes Comments: Supplemental oxygen - *Routine Cardiovascular Exam Present: RRR, Normal S1, tachycardia. Absent: murmur - *Routine Abdominal Exam Present: soft, normoactive bowel sounds. Absent: tenderness, distended, firm - *Routine
--- NOTE | 2021-03-29 10:23 | HMH.PHAINT ---
home medication list verified using list from [facility]
--- NOTE | 2021-03-29 12:14 | HMH.PULMPN ---
Internal Medicine - PN: Subj *Date: 03/29/21 *Time: 14:04 Interval history: No acute respiratory events overnight Exam - Constitutional Constitutional:: Present: no acute distress, comfortable - HENMT Exam HENMT: Present: normocephalic, atraumatic - Eye Exam Eyes:: Present: normal appearance both eyes and related structures - Neck Exam Neck:: Present: normal visual inspection - Respiratory Exam Respiratory:: Present: able to speak in complete sentences, respiratory distress - Cardiovascular Exam Cardiac:: Present: S1, S2 - GI Exam GI:: Present: soft - Skin Exam Skin: Present: warm, no rash, dry - Neurological Exam Neurological: Present: alert, awake - Extremities Exam Extremities: Present: no cyanosis, no clubbing, edema Assessment and Plan (1) Febrile illness, acute Status: Acute Category: Medical Code(s): R50.9 - Fever, unspecified (2) Mass of left lung Status: Chronic Category: Medical Code(s): R91.8 - Other nonspecific abnormal finding of lung field (3) CAD (coronary artery disease) Status: Chronic Category: Medical Code(s): I25.10 - Atherosclerotic heart disease of [place] coronary artery without angina pectoris (4) Congestive heart failure Status: Chronic Qualifiers: Heart failure type: diastolic Heart failure chronicity: chronic Qualified Code(s): I50.32 - Chronic diastolic (congestive) heart failure Category: Medical Code(s): I50.9 - Heart failure, unspecified (5) Dehydration Status: Acute Category: Medical Code(s): E86.0 - Dehydration (6) Diabetes mellitus Status: Chronic Qualifiers: Diabetes mellitus type: type 2 Diabetes mellitus intermediate manager insulin use: unspecified fpc insulin use status Diabetes mellitus complication status: with other specified complication Qualified Code(s): E11.69 - Type 2 diabetes mellitus with other specified complication Category: Medical Code(s): E11.9 - Type 2 diabetes mellitus without complications (7) HLD (hyperlipidemia) Status: Chronic Qualifiers: Hyperlipidemia type: mixed hyperlipidemia Qualified Code(s): E78.2 - Mixed hyperlipidemia Category: Medical Code(s): E78.5 - Hyperlipidemia, unspecified (8) HTN (hypertension) Status: Chronic Qualifiers: Hypertension type: essential hypertension Category: Medical Code(s): I10 - Essential (primary) hypertension (9) Hypotension Status: Acute Category: Medical Code(s): I95.9 - Hypotension, unspecified (10) Acute and chronic respiratory failure Status: Acute Category: Medical Code(s): J96.20 - Acute and chronic respiratory failure, unspecified whether with hypoxia or hypercapnia - Assessment and plan all Dx Assessment and Plan for all problems:: #Acute on chronic hypoxic respiratory failure: 60-year-old diagnosed COPD, pulmonary fibrosis, recent diagnosis of malignancy (non-small cell) status post CT-guided biopsy left upper lobe pulmonary present with worsening weakness. Patient denies any worsening cough or any productive phlegm. Admission showed patient had a febrile episode of greater than 102 with neutrophilic leukocytosis. Flu and COVID-19 PCR negative. He was recently seen in the ED and was discharged on Augmentin for presumed pneumonia Patient also noted significant volume overload with bilateral 3+ lower extremity edema. He has a long history of being noncompliant with his medications Patient is scheduled for EBUS FNA on 04/02/21 CT chest reviewed, no obvious evidence of airspace disease, however his left upper lobe mass increase in size from his most recent CT from February. However patient is having febrile episode and leukocytosis, his antibiotics were escalated to Zosyn to cover for possible gram-negative given his recent cancer diagnosis. Recommend considering to wait for negative blood cultures before de-escalating antibiotics to levofloxacin Plan: -We will continue to hold aspirin and Plavix
--- NOTE | 2021-03-29 15:05 | PC.NURSE ---
patient has done well this shift since getting gabapentin reordered. vitals have been stable. remains on 3l nasal cannula. has been up to chair. at bedside offering patient assistance. brought patient lunch from [facility], and patient is not following diabetinc diet. rings out as needed. educated on need for sputum.
[2021-03-29 17:01] LABS: POC Glucose,Bedside 367 (70-110)
[2021-03-29 17:02] LABS: POC Glucose,Bedside 344 (70-110)
--- NOTE | 2021-03-29 19:52 | PC.NURSE ---
Patient is resting in bedside chair. No c/o. Alert and oriented x 4. BG 344. Insulin given. No concerns or issues
[2021-03-29 20:55] LABS: POC Glucose,Bedside 321 (70-110)
[2021-03-30 04:00] VITALS: BP 119/62; PULSE 105; RESP 20; TEMP 36.6; O2SAT 93
[2021-03-30 05:56] VITALS: BMI 35.9
[2021-03-30 06:04] LABS: POC Glucose,Bedside 284 (70-110)
[2021-03-30 07:44] VITALS: BP 142/79; PULSE 101; RESP 18; TEMP 36.9; O2SAT 92
--- NOTE | 2021-03-30 07:52 | HMH.PNCARD ---
Subjective Date: 03/30/21 Time: 07:30 Principal diagnosis: COPD Interval history: 60-year-old male admitted on 03/28/2021 with worsening generalized weakness for the past few days. Patient does have history of severe COPD in which he requires home oxygen at 3 L. Upon admission to facility, patient did have a low-grade temperature. Patient continues to have a low-grade fever. Blood cultures have been drawn and waiting results. Patient denies chest pain, tightness or pressure. Patient states that shortness of breath is no worse than usual. Patient is on supplemental oxygen at 3 L via nasal cannula. Patient states he had an uneventful night. States he feels so much better this a.m. Patient states he was able to tolerate the BiPAP machine last evening so therefore he was able to have a good night sleep. No swelling noted of the lower extremities. Low-grade temperature noted. Echocardiogram was obtained. Echocardiogram reveals EF 50% with no regional wall motion abnormality, grade 2 diastolic dysfunction. There is calcified aortic valve without aortic stenosis or aortic insufficiency. Mild MR and TR noted with right ventricular systolic pressure of 41 mmHg. PCP is adjusting his medications. Renal function is improving. Pulmonology is following patient with left lung mass. school lunch monitor reveals sinus tachycardia with a heart rate of 101 bpm. Patient is noted to have a high heart rate. Patient states he is currently been on steroids. BP is stable. Echo:Conclusion 1. Technically difficult study because of the patient factors and poor acoustic windows. 2. Biatrial enlargement, normal left ventricular size, mild concentric left ventricular hypertrophy, visually estimated ejection fraction 50% with no regional wall motion abnormality, grade 2 diastolic dysfunction seen with tissue Doppler evidence of raise left atrial pressure. 3. Mildly enlarged right ventricle with normal contractility. 4. Thickened and calcified aortic valve without aortic stenosis or aortic insufficiency. 5. Mild mitral and tricuspid regurgitation, calculated right ventricular systolic pressure is 41mmHg. 6. No significant pericardial effusion noted. No further cardiac testing is needed at this time. Patient is cleared from a cardiac standpoint to proceed with his elective procedure by pulmonology for left lung mass. Patient has been off Plavix and aspirin for 2 to 3 days thus far. Patient will need to resume Plavix and aspirin immediately post procedure. Please notify cardiology of any changes in patient status. Patient will need to follow-up with cardiology in 1 to 2 weeks or sooner if signs and symptoms develop or persist. Thank you for allowing cardiology to participate in the care of this patient. Exam Vital signs and Labs for Last 24 Hours: Temp Pulse Resp BP Pulse Ox 98.4 F 101 H 18 142/79 H 92 L 03/30/21 07:44 03/30/21 07:44 03/30/21 07:44 03/30/21 07:44 03/30/21 07:44 Laboratory Results - last 24 hr 03/29/21 05:59: Total Counted 100, Neutrophils % (Manual) 90 H, Lymphocytes % (Manual) 6 L, Monocytes % (Manual) 4, Platelet Estimate Normal, RBC Morphology Normal 03/29/21 11:22: POC Glucose 367 H* 03/29/21 16:54: POC Glucose 344 H* 03/29/21 20:40: POC Glucose 321 H* 03/30/21 05:52: POC Glucose 284 H I & O for Last 24 hours: Intake & Output 03/27/21 03/28/21 03/29/21 03/30/21 23:59 23:59 23:59 23:59 Intake Total 360 / 1859 2679 / 2799 360 / 360 Output Total 350 / 450 475 / 475 Balance 360 / 1859 2329 / 2349 -115 / -115 Weight 244 lb 11.41 oz 250 lb 9 oz Microbiology Reports for the Last 24 Hours: Microbiology 03/28/21 05:30 Blood Blood Culture - Preliminary NO GROWTH AFTER 48 HOURS 03/28/21 05:30 Blood Blood Culture - Preliminary NO GROWTH AFTER 48 HOURS - Constitutional mild distress, morbidly obese, cooperative - *Rou
--- NOTE | 2021-03-30 08:43 | HMH.ACPN2 ---
<Ibis Castro - Last Filed: 03/30/21 08:43> Internal Medicine - PN: Subj *Date: 03/30/21 *Time: 08:43 Interval history: Patient states he is feeling better this morning. He has less shortness of breath. He denies any pain. He states he actually slept all night last night. Exam Vital signs and Labs for Last 24 Hours: Temp Pulse Resp BP Pulse Ox 98.4 F 101 H 18 142/79 H 92 L 03/30/21 07:44 03/30/21 07:44 03/30/21 07:44 03/30/21 07:44 03/30/21 07:44 Laboratory Results - last 24 hr 03/29/21 11:22: POC Glucose 367 H* 03/29/21 16:54: POC Glucose 344 H* 03/29/21 20:40: POC Glucose 321 H* 03/30/21 05:52: POC Glucose 284 H I & O for Last 24 hours: Intake & Output 03/27/21 03/28/21 03/29/21 03/30/21 11:59 11:59 11:59 11:59 Intake Total 2319 / 2319 3504 / 3504 Output Total 350 / 350 475 / 475 Balance 1968 / 1968 3029 / 3029 Weight 244 lb 3 oz 244 lb 11.41 oz 250 lb 9 oz Microbiology Reports for the Last 24 Hours: Microbiology 03/28/21 05:30 Blood Blood Culture - Preliminary NO GROWTH AFTER 48 HOURS 03/28/21 05:30 Blood Blood Culture - Preliminary NO GROWTH AFTER 48 HOURS - Constitutional no acute distress - *Routine Respiratory Exam Present: decreased breath sounds - *Routine Cardiovascular Exam Present: RRR - *Routine Abdominal Exam Present: soft, normoactive bowel sounds. Absent: tenderness - *Routine Extremities Exam Absent: cyanosis, clubbing, edema - *Routine Skin Exam Present: warm. Absent: rash - *Routine Neurological Exam Present: alert, oriented X3 Assessment and Plan (1) Febrile illness, acute Status: Acute Category: Medical Code(s): R50.9 - Fever, unspecified (2) Mass of left lung Status: Chronic Category: Medical Code(s): R91.8 - Other nonspecific abnormal finding of lung field (3) CAD (coronary artery disease) Status: Chronic Category: Medical Code(s): I25.10 - Atherosclerotic heart disease of [place] coronary artery without angina pectoris (4) Congestive heart failure Status: Chronic Qualifiers: Heart failure type: diastolic Heart failure chronicity: chronic Qualified Code(s): I50.32 - Chronic diastolic (congestive) heart failure Category: Medical Code(s): I50.9 - Heart failure, unspecified (5) Dehydration Status: Acute Category: Medical Code(s): E86.0 - Dehydration (6) Diabetes mellitus Status: Chronic Qualifiers: Diabetes mellitus type: type 2 Diabetes mellitus usp insulin use: unspecified intermediate accountant insulin use status Diabetes mellitus complication status: with other specified complication Qualified Code(s): E11.69 - Type 2 diabetes mellitus with other specified complication Category: Medical Code(s): E11.9 - Type 2 diabetes mellitus without complications (7) HLD (hyperlipidemia) Status: Chronic Qualifiers: Hyperlipidemia type: mixed hyperlipidemia Qualified Code(s): E78.2 - Mixed hyperlipidemia Category: Medical Code(s): E78.5 - Hyperlipidemia, unspecified (8) HTN (hypertension) Status: Chronic Qualifiers: Hypertension type: essential hypertension Category: Medical Code(s): I10 - Essential (primary) hypertension (9) Hypotension Status: Acute Category: Medical Code(s): I95.9 - Hypotension, unspecified (10) Acute and chronic respiratory failure Status: Acute Category: Medical Code(s): J96.20 - Acute and chronic respiratory failure, unspecified whether with hypoxia or hypercapnia - Assessment and plan all Dx Assessment and Plan for all problems:: We will continue IV antibiotics. Blood cultures showed no growth at 48 hours. We will repeat labs tomorrow. Pulmonology and cardiology are following the patient. <Jason Owusu - Last Filed: 03/30/21 08:56> Internal Medicine - PN: Subj *Date: 03/30/21 *Time: 08:55 Exam Vital signs and Labs for Last 2
[2021-03-30 10:17] LABS: Basophils % 0.1 % (0.1-2.0); Eosinophils # 0.1 K/mm3 (0.0-0.4); Eosinophils % 0.3 % (0.1-12.0); Hematocrit 33.7 % (42.0-52.0); Hemoglobin 10.8 g/dL (14.1-18.0); Lymphocytes % 4.5 % (10-50); Mean Corpuscular Hemoglobin 27.6 pg (27.0-31.2); Mean Corpuscular Volume 86.3 fl (80-94); Mean Platelet Volume 8.5 fl (7.4-10.4); Monocytes % 4.4 % (1.7-9.3); Neutrophils # 19.9 K/mm3 (1.8-7.8); Neutrophils % 90.8 % (37.0-80.0); Platelet Count 328 K/mm3 (142-424); Red Blood Count 3.91 M/mm3 (4.60-6.20); Red Cell Distribution Width 16.9 % (11.5-17.5); White Blood Count 21.9 K/mm3 (4.8-10.8)
[2021-03-30 10:19] LABS: MANUAL DIFFERENTIAL MANUAL DIFFERENTIAL (MANUAL DIFF)
[2021-03-30 10:34] LABS: Chloride 102 mmol/L (98-107); Potassium 4.9 mmoL/L (3.5-5.1); Sodium 135 mmol/L (136-145)
[2021-03-30 10:37] LABS: Blood Urea Nitrogen 15 mg/dl (9-20); Creatinine Clearance Estimated 105 mL/min (50-200); Estimated Glomerular Filt Rate 62 ml/min (>60); GFR (African American) 75 ML/MIN (>60)
[2021-03-30 10:38] LABS: Anion Gap 10.9 mEq/L (5-15); Calcium 8.7 mg/dl (8.4-10.2); Carbon Dioxide 27 mmol/L (22.0-30.0); Glucose 313 mg/dl (74-100)
[2021-03-30 10:56] LABS: Lymphocytes % 8 % (10-50); Monocytes % 4 % (2-9); Neutrophils % 86 % (42-76); Platelet Estimate Normal; RBC Morphology Normal; Total Cells Counted 100
[2021-03-30 11:25] LABS: POC Glucose,Bedside 328 (70-110)
[2021-03-30 11:55] VITALS: PULSE 101; PULSE 105; O2SAT 95
--- NOTE | 2021-03-30 12:04 | HMH.PULMPN ---
Internal Medicine - PN: Subj *Date: 03/30/21 *Time: 12:04 Interval history: No acute respiratory events overnight. Patient admits improvement in his symptoms Exam - Constitutional Constitutional:: Present: no acute distress, comfortable - HENMT Exam HENMT: Present: normocephalic, atraumatic - Eye Exam Eyes:: Present: normal appearance both eyes and related structures - Neck Exam Neck:: Present: normal visual inspection - Respiratory Exam Respiratory:: Present: able to speak in complete sentences, normal respiratory effort, crackles. Absent: respiratory distress - Cardiovascular Exam Cardiac:: Present: S1, S2 - GI Exam GI:: Present: soft - Skin Exam Skin: Present: warm, no rash - Neurological Exam Neurological: Present: alert, awake, normal cognition - Extremities Exam Extremities: Present: no cyanosis, no clubbing, edema Assessment and Plan (1) Febrile illness, acute Status: Acute Category: Medical Code(s): R50.9 - Fever, unspecified (2) Mass of left lung Status: Chronic Category: Medical Code(s): R91.8 - Other nonspecific abnormal finding of lung field (3) CAD (coronary artery disease) Status: Chronic Category: Medical Code(s): I25.10 - Atherosclerotic heart disease of [place] coronary artery without angina pectoris (4) Congestive heart failure Status: Chronic Qualifiers: Heart failure type: diastolic Heart failure chronicity: chronic Qualified Code(s): I50.32 - Chronic diastolic (congestive) heart failure Category: Medical Code(s): I50.9 - Heart failure, unspecified (5) Dehydration Status: Acute Category: Medical Code(s): E86.0 - Dehydration (6) Diabetes mellitus Status: Chronic Qualifiers: Diabetes mellitus type: type 2 Diabetes mellitus senior living insulin use: unspecified senior living insulin use status Diabetes mellitus complication status: with other specified complication Qualified Code(s): E11.69 - Type 2 diabetes mellitus with other specified complication Category: Medical Code(s): E11.9 - Type 2 diabetes mellitus without complications (7) HLD (hyperlipidemia) Status: Chronic Qualifiers: Hyperlipidemia type: mixed hyperlipidemia Qualified Code(s): E78.2 - Mixed hyperlipidemia Category: Medical Code(s): E78.5 - Hyperlipidemia, unspecified (8) HTN (hypertension) Status: Chronic Qualifiers: Hypertension type: essential hypertension Category: Medical Code(s): I10 - Essential (primary) hypertension (9) Hypotension Status: Acute Category: Medical Code(s): I95.9 - Hypotension, unspecified (10) Acute and chronic respiratory failure Status: Acute Category: Medical Code(s): J96.20 - Acute and chronic respiratory failure, unspecified whether with hypoxia or hypercapnia - Assessment and plan all Dx Assessment and Plan for all problems:: #Acute on chronic hypoxic respiratory failure: # Non-small cell cancer: 60-year-old diagnosed COPD, pulmonary fibrosis, recent diagnosis of malignancy (non-small cell) status post CT-guided biopsy left upper lobe pulmonary present with worsening weakness. Patient denies any worsening cough or any productive phlegm. Admission showed patient had a febrile episode of greater than 102 with neutrophilic leukocytosis. Flu and COVID-19 PCR negative. He was recently seen in the ED and was discharged on Augmentin for presumed pneumonia Patient also noted significant volume overload with bilateral 3+ lower extremity edema. He has a long history of being noncompliant with his medications Patient is scheduled for EBUS FNA on 04/02/21 CT chest reviewed, no obvious evidence of airspace disease, however his left upper lobe mass increase in size from his most recent CT from February. However patient is having febrile episode and leukocytosis, his antibiotics were escalated to Zosyn to cover for possible gram-negative given his recent cancer diagnosis. Blood cultures no growth 48hrs
--- NOTE | 2021-03-31 21:44 | HMH.DCSUM ---
General - General Admission date:: 03/28/21 Discharge date: 03/30/21 HPI HPI: per ER documentation: reports pt has been weak and unable to stand today. She says he has been c/o back pain all day and lost control of his bladder on the way to the ED. Pt is able to answer questions appropriately but appears to be SOA w/ RA sat of 89%. Pt states he wears 3LNC at home and was recently diagnosed with lung cancer. 3LNC applied at this time. Pt denies N/V/D. Denies CP. Positive for rectal tone. Chest x-ray revealed stable diffuse interstitial lung disease with superimposed lingual mass. CT of the cervical spine reveals no acute changes with degenerative disc disease At C6/7 there is a severe right and moderate to severeLeft neural form L no narrowing. CT of the lumbar spine shows no acute changes. CT of the thoracic spine shows no acute abnormality. CTA of the chest with PE protocol reveals no pulmonary embolism. Stable Leg 1 OR mass compatible with known neoplasm.Stable adenopathy Following is Cardiology documentation: 60-year-old male presented to the ED for worsening generalized weakness for the past few days. Patient states he feels like his legs are giving out on him. Patient states he has fallen 2-3 times in the past few days due to weakness in his legs. Patient states on the way to the ED, he was incontinent of urine and states this is the first time that has ever happened. is at bedside. stated patient was incoherent of his surroundings this morning when he awoke and she felt concerned that he could have been having a stroke. Patient is followed by this cardiology group. Last appointment was in January 2021. Patient does have history of severe COPD in which she requires home oxygen at 3 L. Patient denies cough or fever. Patient does have history of coronary artery disease. Last heart catheterization was in March 2020 which was medical management. Patient does have history of CABG in 2011. Patient is currently on Plavix and aspirin for his CAD. Patient is a diabetic and which he states is controlled. History of hypertension. History of hyperlipidemia in which he is on a statin. Patient does continue to smoke at least 1 pack/day and has for 30+ years. Patient denies chest pain, tightness or pressure. Patient states that shortness of breath is no worse than usual. Patient does pulse ox at 90% with 3 L of O2 by nasal cannula. Slight swelling noted of the right lower extremity. Patient does complain and dizziness especially with position change. Patient denies palpitations. Patient states he is just unsure as to why he has felt so weak in the past few days. Patient is diagnosed with progression of interstitial lung disease. Patient states he was also told that he has a lung mass in which he is needing surgical clearance for a lung biopsy next week. Last echocardiogram was performed in March 2020 which revealed EF 55% with no regional wall motion abnormality. Vital signs are stable. EKG revealed normal sinus rhythm with right bundle branch block with a heart rate of 96 bpm. Pt with a history of newly diagnosed lung cancer scheduled for biopsy and is oxygen dependent, congestive heart failure, coronary artery disease with previous NE, diabetes mellitus, hyperlipidemia, hypertension vascular disease who was brought to the emergency room with altered mental status. Patient does not recall much of what happened this morning but states he awakened and was short of breath with a cough. He states he was unable to walk. The mobility has been a problem for the past few days. He states he has been eating and drinking well. 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 He denies any vomiting or nausea but states he does have diarrhea. The diarrhea is an ongoing problem. Above her notes from the ER as well as the cardiology consult. In the emergency room on admission tita
== END 2021-03-30 15:30 | disposition home or self-care (01) | DRG 193 ==
LOC: ER 05:31 → 2ND 07:59
PROVIDERS: Admitting Provider Family Medicine; Emergency Provider Emergency Medicine; PCP Nurse Practitioner Family; Visit Provider Family Medicine
DX: J18.9 Pneumonia, unspecified organism (principal); J96.21 Acute and chronic respiratory failure with hypoxia; C34.90 Malignant neoplasm of unspecified part of unspecified bronchus or lung; I50.32 Chronic diastolic (congestive) heart failure; I11.0 Hypertensive heart disease with heart failure; E86.0 Dehydration; F17.210 Nicotine dependence, cigarettes, uncomplicated; J84.10 Pulmonary fibrosis, unspecified; Z20.822 Contact with and (suspected) exposure to COVID-19; Z99.81 Dependence on supplemental oxygen; Z88.8 Allergy status to other drugs, medicaments and biological substances; Z79.4 Long term (current) use of insulin; Z79.899 Other long term (current) drug therapy; Z88.2 Allergy status to sulfonamides; Z95.5 Presence of coronary angioplasty implant and graft; Z95.1 Presence of aortocoronary bypass graft
CPT/HCPCS: 36415; 71045; 71275; 72125; 72128; 72131; 80048; 80053; 81001; 82803; 82962; 83605; 83735; 84145; 85007; 85025; 85651; 86140; 87040; 93005; 93306; 94640; 96365; 96375; 99285; J0456; J2543; U0003

== ENCOUNTER 2021-04-02 09:10 | Day surgery (SDC) | payer BC, SELFPAY ==
--- NOTE | 2021-03-30 08:06 | SUR.PREOP ---
SPOKE WITH PATIENT HE IS INPATIENT RM 214 EXPLAINED TO HIM THAT IF HE IS DC'D THIS WEEKEND HE WILL NEED TO ARRIVE ON FRIDAY AT 0845 AND COME IN AT 7AM FRIDAY FOR COVID SWAB. PATIENT STATED HE STOPPED HIS PLAVIX AND ASA.
[2021-04-02] VITALS (10 sets, daily range): BP systolic 91–144; BP diastolic 36–97; PULSE 86–95; RESP 16–23; TEMP 36.4–37.1; O2SAT 86–96; BMI 35.7
--- NOTE | 2021-04-02 09:16 | HMH.ANESCL ---
[facility] Anesthesia Checklist - Patient Identification Patient Identification: Arm Band - Structural Data Admitted From: Home Planned Operative Procedure/s: Bronschoscopy Consent for Planned Operative Procedure(s) Verified: Yes - NPO Status Verified Time NPO: 00:00 - Additional verifications Anesthesia Reactions: No Hx Blood Transfusions: No Blood Transfusion Reaction: No - Airway Assessment C-Spine Mobility Assessed: Yes TMJ Mobility Assessed: Yes Dentition: Edentulous - Neurological Assessment Level of Consciousness: Awake Hx Seizures: No Numbness or tingling in extremities: Yes - Anesthesia Plan Anesthesia Risk discussed: Yes Anesthesia Plan: Verified ASA Class: IV Anesthesia Type: General [facility] History I have reviewed the patient's past medical history: Yes Medical History: Reports:: Cancer (lung), Congestive Heart Failure, Chronic Obstructive Pulmonary Disease (COPD), Coronary Artery Disease, Diabetes Mellitus Type 1, Diabetes Mellitus Type 2, Home Oxygen, Hyperlipidemia, Hypertension, Myocardial Infarction, Peripheral Vascular Disease, Renal Disease Denies:: Internal Pacemaker, MRSA, Seizures *Have you ever received a pneumonia vaccine?: No *Have you received a flu vaccine this season?: No Other Medical History: Reports: Hypothyroidism, Thyroid Disease. Denies: Blood Transfusion Reaction Anesthesia experience/problems:: Difficulty waking up, difficulty being extubated Other Surgeries: Yes: CABG, Cardiac Catheterization, Cholecystectomy, Coronary Stent. No: Pacemaker Amputation: No Fractures: No - *Social History Smoking Status: Current every day smoker Tobacco Type: cigarettes # Packs/Day (cigarettes): 1 Alcohol Intake: never Substance Use Type: denies use *Occupational Status:: disabled Housing: house Household Members: spouse *Travel in the last 8 weeks: None Family Hx:: Non-contributory, Cancer, Diabetes, Heart Attack
[2021-04-02 09:39] LABS: Coronavirus 19, PCR Not Detected (NotDetected); Influenza A, PCR Not Detected (NotDetected); Influenza B, PCR Not Detected (NotDetected)
[2021-04-02 10:21] LABS: Basophils % 0.1 % (0.1-2.0); Eosinophils # 0.1 K/mm3 (0.0-0.4); Eosinophils % 0.3 % (0.1-12.0); Hematocrit 34.8 % (42.0-52.0); Hemoglobin 10.8 g/dL (14.1-18.0); Lymphocytes # 0.8 K/mm3 (0.7-4.5); Lymphocytes % 3.8 % (10-50); Mean Corpuscular HGB Conc 31.1 g/dL (31.8-35.4); Mean Corpuscular Hemoglobin 27.7 pg (27.0-31.2); Mean Corpuscular Volume 89.1 fl (80-94); Mean Platelet Volume 8.1 fl (7.4-10.4); Monocytes # 0.7 K/mm3 (0.1-1.0); Monocytes % 3.4 % (1.7-9.3); Neutrophils % 92.3 % (37.0-80.0); Platelet Count 339 K/mm3 (142-424); Red Blood Count 3.91 M/mm3 (4.60-6.20); Red Cell Distribution Width 16.9 % (11.5-17.5); White Blood Count 21.6 K/mm3 (4.8-10.8)
[2021-04-02 10:36] LABS: MANUAL DIFFERENTIAL MANUAL DIFFERENTIAL (MANUAL DIFF)
[2021-04-02 12:06] LABS: Lymphocytes % 4 % (10-50); Monocytes % 4 % (2-9); Neutrophils % 92 % (42-76); Total Cells Counted 100
[2021-04-02 12:07] LABS: Hypochromasia 1+; Platelet Estimate Normal
--- NOTE | 2021-04-02 13:27 | HMH.ANESI ---
[facility] Anesthesia Record Part I Intake, IV Amount: 300 Estimated blood loss (mL): 10 Urine output (mL): 0 Blood Pressure: 115/56 SaO2: 96 Pulse Rate: 95 Respiratory Rate: 20 Temperature: 98.8 F Patient is:: Awake Stable to PACU at:: 13:25
[2021-04-02 13:56] LABS: POC Glucose,Bedside 219 (70-110)
--- NOTE | 2021-04-02 14:12 | HMH.BRONCH ---
- Procedure: Date: 04/02/21 Patient Date of :: 1960 Procedure Performed:: Bronchoscopy with EBUS FNA Indications:: Lung mass with lymphadenopathy Performing Provider:: Gabriel Leo MD Referring Provider:: Dr: Jne Iniguez APRN Sedation:: General anesthesia Procedure:: Bronchoscopy with EBUS FNA: Clean EBUS bronchoscope advanced the ET tube lymph node surveillance were performed. Patient noted to have an enlarged station 11L station 7 and station 4L. EBUS-FNA was performed at stations 11L. The procedure was complicated by multiple episodes of hypoxia and was limited by her ability to perform further lymph node stations surveillance. Pathology at bedside found malignant cells in both 11 and 4L stations. Adequate lymphoid tissue obtained for further testing. Prior plans of performing BAL and transbronchial biopsies were discontinued given patient's recurrent hypoxia episodes with the procedures especially in the setting of pathology having an upper lymphoid tissue for further testing and patient has a positive malignancy from his CT-guided biopsy of the lung mass. Patient already has an oncology appointment PET scan appointment scheduled. We will follow the patient in clinic in 7 days We will continue his home inhaler therapy and oxygen therapy Findings:: Please see the procedure note Specimens:: Station 11 and L and 4L fine-needle aspiration of the lymph node Recommendations:: Please see the procedure note Complications:: Recurrent hypoxia episodes Estimated blood obtained (mL): 15
--- NOTE | 2021-04-02 14:30 | PC.NURSE ---
at bedside, cleared pt to be d/c home
--- NOTE | 2021-04-02 14:41 | PC.NURSE ---
cleared pt to be d/c home
--- NOTE | 2021-04-02 14:59 | PC.NURSE ---
Pt d/c home with portable o2 at 4lpm
[2021-04-02 17:10] LABS: POC Glucose,Bedside 215 (70-110)
--- NOTE | 2021-04-03 10:14 | P.PN_ITS ---
[facility] Anesthesia Record Part II Discharge Time: 13:55 Destination: Surgical Day Care (OP Surgery) PACU nurse assessment reviewed?: Yes Patient Condition:: Good Anesthesia Complications:: None Swallowing reflex intact?: Yes Cyanosis?: No Blood Pressure: 91/46 Pulse Rate: 89 Temperature: 98.8 F Mental Status: Alert & Oriented Pain level:: 1 Nausea and/or vomitting:: None Intake, IV Amount: 50
[2021-04-03 10:15] VITALS: BP 91/46; PULSE 89; TEMP 37.1
== END 2021-04-02 15:00 | disposition home or self-care (01) ==
PROVIDERS: PCP Nurse Practitioner Family; Visit Provider Internal Medicine Pulmonary Disease
PROC: (CPT 31652; principal; 2021-04-02 10:00)
DX: J84.10 Pulmonary fibrosis, unspecified (principal); F17.210 Nicotine dependence, cigarettes, uncomplicated; I11.0 Hypertensive heart disease with heart failure; I50.9 Heart failure, unspecified; I25.10 Atherosclerotic heart disease of native coronary artery without angina pectoris; C34.12 Malignant neoplasm of upper lobe, left bronchus or lung; J96.11 Chronic respiratory failure with hypoxia; Z20.822 Contact with and (suspected) exposure to COVID-19; R59.1 Generalized enlarged lymph nodes; E11.9 Type 2 diabetes mellitus without complications; Z79.4 Long term (current) use of insulin; Z79.02 Long term (current) use of antithrombotics/antiplatelets; E03.9 Hypothyroidism, unspecified
CPT/HCPCS: 31652; 36415; 82962; 85007; 85025; J0330; J2704; J2710; U0003

== ENCOUNTER → 2021-04-13 09:42 | Outpatient (CLI) | payer BC, SELFPAY ==
[2021-04-13 10:14] LABS: Basophils % 0.1 % (0.1-2.0); Eosinophils % 0.1 % (0.1-12.0); Hematocrit 34.9 % (42.0-52.0); Hemoglobin 10.4 g/dL (14.1-18.0); Lymphocytes # 0.9 K/mm3 (0.7-4.5); Lymphocytes % 3.7 % (10-50); Mean Corpuscular HGB Conc 29.9 g/dL (31.8-35.4); Mean Corpuscular Hemoglobin 27.8 pg (27.0-31.2); Mean Corpuscular Volume 93.3 fl (80-94); Mean Platelet Volume 8.9 fl (7.4-10.4); Monocytes # 0.7 K/mm3 (0.1-1.0); Monocytes % 2.8 % (1.7-9.3); Neutrophils # 22.8 K/mm3 (1.8-7.8); Neutrophils % 93.4 % (37.0-80.0); Platelet Count 251 K/mm3 (142-424); Red Blood Count 3.74 M/mm3 (4.60-6.20); Red Cell Distribution Width 17.2 % (11.5-17.5); White Blood Count 24.4 K/mm3 (4.8-10.8)
[2021-04-13 10:15] LABS: MANUAL DIFFERENTIAL MANUAL DIFFERENTIAL (MANUAL DIFF)
[2021-04-13 10:31] LABS: Hypochromasia 1+; Lymphocytes % 7 % (10-50); Monocytes % 3 % (2-9); Neutrophils % 90 % (42-76); Platelet Estimate Normal; Total Cells Counted 100
[2021-04-13 11:32] LABS: Alanine Aminotransferase 24 U/L (12-78); Albumin Level 2.4 g/dl (3.5-5.0); Albumin/Globulin Ratio 0.6 (1.1-1.8); Alkaline Phosphatase 424 U/L (38-126); Anion Gap 19.1 mEq/L (5-15); Aspartate Amino Transferase 25 U/L (17-59); Bilirubin,Total 0.9 mg/dl (0.2-1.3); Blood Urea Nitrogen 44 mg/dl (9-20); Calcium 8.7 mg/dl (8.4-10.2); Carbon Dioxide 27 mmol/L (22.0-30.0); Chloride 89 mmol/L (98-107); Estimated Glomerular Filt Rate 26 ml/min (>60); GFR (African American) 32 ML/MIN (>60); Globulin 3.9 g/dL (1.3-3.2); Sodium 129 mmol/L (136-145); Total Protein,Serum 6.3 g/dl (6.3-8.2)
[2021-04-13 11:41] LABS: Glucose 575 mg/dl (74-100); Potassium 6.1 mmoL/L (3.5-5.1)
[2021-04-14 12:49] LABS: Anti-Centromere B Antibodies <0.2 AI (0.0-0.9); Anti-DNA (DS) Ab Qn 1 IU/mL (0-9); Antiscleroderma-70 Antibodies <0.2 AI (0.0-0.9)
== END ==
PROVIDERS: Nurse Practitioner Family; Visit Provider Internal Medicine Pulmonary Disease
DX: J84.10 Pulmonary fibrosis, unspecified (principal); J84.9 Interstitial pulmonary disease, unspecified; J45.909 Unspecified asthma, uncomplicated; Z20.822 Contact with and (suspected) exposure to COVID-19
CPT/HCPCS: 36415; 80053; 85007; 85025; 86225; 86235; U0003

== ENCOUNTER → 2021-04-13 10:23 | Outpatient (CLI) | payer BC, SELFPAY ==
--- NOTE | 2021-04-13 10:31 | MR_ITS ---
PROCEDURE INFORMATION: Exam: MR Head Without Contrast Exam date and time: 04/13/2021 10:31 AM Age: 60 years old Clinical indication: Condition or disease; History of cancer (specify primary cancer site): ; Primary cancer: Primary lung CA; Walking, difficulty; Patient HX: PT has HX of metastatic lung CA with confusion. Best images possible. ; Additional info: Metastatic lung cancer TECHNIQUE: Imaging protocol: MR of the head without contrast. COMPARISON: CT HEAD/BRAIN WO CON 01/27/2020 11:10 AM FINDINGS: Brain: Patchy and confluent areas of T2 and flair hyperintensity noted in the periventricular white matter, a nonspecific finding most likely compatible with demyelination or gliosis. Migraine syndrome, microvascular, inflammatory or primary demyelinating disease may be considered. Cerebral ventricles: Atrophic changes. No ventriculomegaly. Bones/joints: Unremarkable. Paranasal sinuses: Normal as visualized. No acute sinusitis. Mastoid air cells: Minor left mastoid inflammatory disease. Orbital cavity: Unremarkable. Soft tissues: Unremarkable. IMPRESSION: 1. Patchy and confluent areas of white matter signal abnormality discussed above. Differential possibilities have been mentioned, and clinical correlation is advised. 2. Atrophic changes. 3. Minor left mastoid inflammatory disease.
== END ==
PROVIDERS: PCP Nurse Practitioner Family; Visit Provider Internal Medicine Medical Oncology
DX: C34.90 Malignant neoplasm of unspecified part of unspecified bronchus or lung (principal)
CPT/HCPCS: 70551

== ENCOUNTER 2021-04-13 12:04 | Inpatient (IN) | payer BC, MEDICARE, SELFPAY ==
[2021-04-13] VITALS (27 sets, daily range): BP systolic 90–130; BP diastolic 54–70; PULSE 85–98; RESP 16–25; TEMP 36.3–36.8; O2SAT 90–99; BMI 28.8; BMI 35.0
--- NOTE | 2021-04-13 | ECG_ITS ---
APPROVED REPORT Exam: Resting ECG HR:88 bpm ECG Measurements Heart Rate 88 AXES MS 134 P 46 QRSd 140 QRS -17 QT 394 T 32 QTc 476 Conclusion Normal sinus rhythm Possible Left atrial enlargement Right bundle branch block Abnormal ECG Electronically signed by : Franco Temple MD 04/16/2021 20:59:08
--- NOTE | 2021-04-13 12:20 | XR_ITS ---
PROCEDURE: XR CHEST PORTABLE CLINICAL HISTORY: SOA COMPARISON: CR XR CHEST 2V from 03/20/2021 CR XR CHEST PORTABLE from 03/23/[address] ANGIO CHEST PE PROTOCOL from 03/28/2021 CR XR CHEST PORTABLE from 03/28/2021 FINDINGS: The lingular mass is again noted. Mild diffuse interstitial fibrotic changes are seen both perihilar regions and lower lobes, though there may be mild superimposed acute pneumonic infiltrate left lower lobe. There is blunting of left costophrenic angle which could be secondary to a small reactive pleural effusion. There is relative sparing of the upper lobes. Sternal wire sutures are noted , several of the sutures are fractured. IMPRESSION: Stable lingular all mass likely bronchogenic carcinoma, underlying bilateral lower lobe interstitial fibrotic changes with probable superimposed pneumonic infiltrate left lower lobe Dictated by: Dr. Vasiliy Garcia MD 04/13/2021 12:59 Dr. Vasiliy Garcia MD in [place] 04/13/2021 12:59
[2021-04-13 12:31] LABS: Basophils % 0.1 % (0.1-2.0); Eosinophils # 0.1 K/mm3 (0.0-0.4); Eosinophils % 0.5 % (0.1-12.0); Hematocrit 34.2 % (42.0-52.0); Hemoglobin 10.3 g/dL (14.1-18.0); Lymphocytes # 0.9 K/mm3 (0.7-4.5); Lymphocytes % 3.8 % (10-50); Mean Corpuscular HGB Conc 30.1 g/dL (31.8-35.4); Mean Corpuscular Hemoglobin 27.6 pg (27.0-31.2); Mean Corpuscular Volume 91.5 fl (80-94); Mean Platelet Volume 10.1 fl (7.4-10.4); Monocytes # 0.6 K/mm3 (0.1-1.0); Monocytes % 2.6 % (1.7-9.3); Platelet Count 304 K/mm3 (142-424); Red Blood Count 3.74 M/mm3 (4.60-6.20); Red Cell Distribution Width 17.3 % (11.5-17.5); White Blood Count 22.6 K/mm3 (4.8-10.8)
[2021-04-13 12:37] LABS: Chloride 88 mmol/L (98-107); Sodium 126 mmol/L (136-145)
[2021-04-13 12:40] LABS: Alanine Aminotransferase 27 U/L (12-78); Albumin Level 2.9 g/dl (3.5-5.0); Albumin/Globulin Ratio 0.6 (1.1-1.8); Alkaline Phosphatase 404 U/L (38-126); Anion Gap 15.1 mEq/L (5-15); Aspartate Amino Transferase 50 U/L (17-59); Bilirubin,Total 1.1 mg/dl (0.2-1.3); Blood Urea Nitrogen 47 mg/dl (9-20); Calcium 8.8 mg/dl (8.4-10.2); Carbon Dioxide 29 mmol/L (22.0-30.0); Creatinine Clearance Estimated 39 mL/min (50-200); Estimated Glomerular Filt Rate 25 ml/min (>60); GFR (African American) 31 ML/MIN (>60); Globulin 4.6 g/dL (1.3-3.2); Total Protein,Serum 7.5 g/dl (6.3-8.2)
[2021-04-13 12:46] LABS: Glucose 593 mg/dl (74-100); Potassium 6.1 mmoL/L (3.5-5.1)
--- NOTE | 2021-04-13 12:46 | PC.NURSE ---
CRITICAL LAB VALUES: K 6.1, GLU 593, DR. COLEMAN NOTIFIED.
--- NOTE | 2021-04-13 13:29 | PC.NURSE ---
URINAL AT BEDSIDE. PT RESTING COMFORTABLY.
--- NOTE | 2021-04-13 13:38 | HMH.EDGENADL ---
ED Disposition Clinical Impression: AGGIE (acute kidney injury) Disposition: Admitted As Inpatient Condition on Discharge: Good - Critical Care Critical Care Time: Yes Attestation: On 04/13/21, the high probability of a clinically significant, sudden or life threatening deterioration of the following system(s) required my full and direct attention, intervention and personal management. The time I documented below is in addition to time spent performing reported procedures but includes the following listed in this critical care notation. Vital system(s) involved:: Metabolic Failure My critical care processes included: Assessment & monitoring of V/S, Initial and Re-exams, Data Review/Interpretation, Coordinating Care, Medication Orders and management, Documentation Comment: Patient required critical care time for multiple high acuity electrolyte abnormalities and injection of insulin, dextrose, nebulizer treatment for treatment of critically high hyperkalemia, AGGIE with dehydration Medical Decision Making - Medical Records Medical records reviewed: Yes: I reviewed the patient's medical records. - Carrillo Inquiry Pt receiving controlled substance: No Vital Signs: 04/13/21 12:05 04/13/21 12:26 04/13/21 12:30 Temperature 98.0 F Temperature Source Oral Pulse Rate 96 H 93 H Pulse Rate [Right Radial] 98 H Respiratory Rate 20 24 16 Blood Pressure Blood Pressure [Right Arm] 99/54 L Blood Pressure Mean Blood Pressure Mean [Right Arm] 69 Blood Pressure Source [Right Arm] Automatic Cuff Blood Pressure Position [Right Arm] Sitting 02 Sat by Pulse Oximetry 92 L 90 L 92 L Oxygen Delivery Method Simple Mask Simple Mask Oxygen Flow Rate (LPM) 4 4 04/13/21 12:45 04/13/21 13:00 04/13/21 13:15 Temperature Temperature Source Pulse Rate 91 H 85 88 Pulse Rate [Right Radial] Respiratory Rate 19 21 18 Blood Pressure 90/56 L Blood Pressure [Right Arm] Blood Pressure Mean 64 Blood Pressure Mean [Right Arm] Blood Pressure Source [Right Arm] Blood Pressure Position [Right Arm] 02 Sat by Pulse Oximetry 96 97 98 Oxygen Delivery Method Oxygen Flow Rate (LPM) 04/13/21 13:20 04/13/21 13:25 04/13/21 13:30 Temperature Temperature Source Pulse Rate 87 86 88 Pulse Rate [Right Radial] Respiratory Rate 19 20 Blood Pressure 95/63 L 100/66 L Blood Pressure [Right Arm] Blood Pressure Mean 73 75 Blood Pressure Mean [Right Arm] Blood Pressure Source [Right Arm] Blood Pressure Position [Right Arm] 02 Sat by Pulse Oximetry 98 96 95 Oxygen Delivery Method Simple Mask Simple Mask Oxygen Flow Rate (LPM) 4 4 04/13/21 13:45 04/13/21 14:00 04/13/21 14:15 Temperature Temperature Source Pulse Rate 91 H 92 H 93 H Pulse Rate [Right Radial] Respiratory Rate 16 22 22 Blood Pressure 111/68 Blood Pressure [Right Arm] Blood Pressure Mean 79 Blood Pressure Mean [Right Arm] Blood Pressure Source [Right Arm] Blood Pressure Position [Right Arm] 02 Sat by Pulse Oximetry 96 97 Oxygen Delivery Method Oxygen Flow Rate (LPM) 04/13/21 14:30 04/13/21 14:41 04/13/21 14:45 Temperature Temperature Source Pulse Rate 95 H 94 H Pulse Rate [Right Radial] Respiratory Rate 25 H 16 24 Blood Pressure 107/60 L Blood Pressure [Right Arm] Blood Pressure Mean 72 Blood Pressure Mean [Right Arm] Blood Pressure Source [Right Arm] Blood Pressure Position [Right Arm] 02 Sat by Pulse Oximetry 92 L 93 L Oxygen Delivery Method Oxygen Flow Rate (LPM) 04/13/21 15:00 04/13/21 15:15 04/13/21 15:30 Temperature Temperature Source Pulse Rate 93 H 92 H 90 Pulse Rate [Right Radial] Respiratory Rate 20 18 21 Blood Pressure 107/64 L 112/67 Blood Pressure [Right Arm] Blood Pressure Mean 71 73 Blood Pressure Mean [Right Arm] Blood Pressure Source [Right Arm] Blood Pressure Position [Right Arm] 02 Sat by Pul
[2021-04-13 14:00] LABS: Troponin I 0.03 ng/ml (0.00-0.034)
--- NOTE | 2021-04-13 14:13 | PC.NURSE ---
BG ESTRELLA NE , DR. [place] NOTIFIED. ORDER TO REDRAW BMP @ 2039
[2021-04-13 14:16] LABS: Coronavirus 19, PCR Not Detected (NotDetected); Influenza A, PCR Not Detected (NotDetected); Influenza B, PCR Not Detected (NotDetected)
--- NOTE | 2021-04-13 14:40 | PC.NURSE ---
REPEAT BMP SENT TO LAB.
[2021-04-13 14:48] LABS: Microscopic, Urine URINE MICROSCOPIC (MICROSCOPIC)
[2021-04-13 15:00] LABS: Appearance,Urine CLEAR (Clear); Bilirubin,Urine Negative (Negative); Blood, Urine TRACE-I (Negative); Color,Urine YELLOW (Yellow); Glucose,Urine (UA) 3+ (Negative); Ketones,Urine Negative (Negative); Leukocyte Esterase,Urine Negative (Negative); Nitrate,Urine Negative (Negative); Protein,Urine TRACE (Negative)
[2021-04-13 15:05] LABS: Chloride 90 mmol/L (98-107); Sodium 126 mmol/L (136-145)
[2021-04-13 15:06] LABS: Potassium 5.4 mmoL/L (3.5-5.1)
[2021-04-13 15:09] LABS: Anion Gap 13.4 mEq/L (5-15); Blood Urea Nitrogen 46 mg/dl (9-20); Calcium 8.6 mg/dl (8.4-10.2); Carbon Dioxide 28 mmol/L (22.0-30.0); Creatinine Clearance Estimated 42 mL/min (50-200); Estimated Glomerular Filt Rate 28 ml/min (>60); GFR (African American) 34 ML/MIN (>60)
[2021-04-13 15:10] LABS: Squamous Epithelial Cell,Urine Occasional #/hpf (0-5)
[2021-04-13 15:11] LABS: Bacteria,Urine Trace /lpf
[2021-04-13 15:21] LABS: Glucose 607 mg/dl (74-100)
--- NOTE | 2021-04-13 15:21 | PC.NURSE ---
ER AWARE OF CRITICAL GLUCOSE
[2021-04-13 16:40] LABS: Troponin I 0.04 ng/ml (0.00-0.034)
--- NOTE | 2021-04-13 16:54 | PC.NURSE ---
REPORT GIVEN TO MACIE SETHI.
--- NOTE | 2021-04-13 19:05 | HMH.HP ---
*Admission Date: 04/13/21 *Chief complaint: acute kidney injury, adenocarcinoma lung, hyperkalemia *History of present illness: Patient is a 60-year-old white male, knitted to our service as an unassigned patient who is followed at [facility] by Dr. Clifton and . Patient was recently diagnosed with a left upper lobe neoplasm, adenocarcinoma, 7 cm. There are multiple pulmonary masses, multiple pulmonary nodes. Patient has been seen in consultation with Dr. Clifton. At that point he relayed difficulty walking, weakness in his legs. PET scan is set up and pending. Patient was set up for an MRI of the lumbar spine today. He was found to have marked aberrations in his lab work, pacifically a potassium of 6.1, a creatinine of 2.5, and a glucose of 150. He has a longstanding history of diabetes, his baseline creatinine is about 1.3. There was also some mild hyponatremia evident. Patient wears a BiPAP at home, we will set him up for this as well as when on a sliding scale regimen, inhaled Xopenex, IV fluids, and analgesia. Is complaining of some back pain. [facility] History Medical History: Reports:: Cancer, Congestive Heart Failure, Chronic Obstructive Pulmonary Disease (COPD), Coronary Artery Disease, Diabetes Mellitus Type 2, Home Oxygen, Hyperlipidemia, Hypertension, Myocardial Infarction, Peripheral Vascular Disease, Renal Disease Denies:: Diabetes Mellitus Type 1, Internal Pacemaker, MRSA, Seizures *Have you ever received a pneumonia vaccine?: Yes *Have you received a flu vaccine this season?: No Other Medical History: Reports: Hypothyroidism, Thyroid Disease. Denies: Blood Transfusion Reaction Other Surgeries: Yes: CABG, Cardiac Catheterization, Cardiac Surgery, Cholecystectomy, Coronary Stent. No: Pacemaker Amputation: No Fractures: No - *Social History Last grade of school completed: High school graduate Smoking Status: Current every day smoker Tobacco Type: cigarettes # Packs/Day (cigarettes): 1 Alcohol Intake: never Substance Use Type: denies use *Occupational Status:: disabled Housing: house Household Members: spouse *Travel in the last 8 weeks: None Family Hx:: Non-contributory Review of Systems - Constitutional Reports anorexia, Reports lack of energy - Eyes Denies change in vision - ENT Denies abnormal hearing - *Cardiovascular Reports shortness of breath, Denies chest pain - *Respiratory Reports chest congestion, Reports cough - *Gastrointestinal Denies abdominal pain, Denies pain with swallowing - *Genitourinary Denies difficulty urinating - *Musculoskeletal Reports abnormal walking, Reports decreased muscle mass, Reports back pain, Reports muscle weakness - Integumentary/Breasts Denies yellowing of the skin - *Neurologic Reports abnormal walking, Reports lack of coordination, Reports weakness, Denies confusion - Psychiatric Reports change in appetite, Denies behavioral changes - Endocrine Denies heat intolerance, Denies rapid, pounding, or irregular heartbeat - Hematologic/Lymphatic Denies easy bleeding, Denies easy bruising - Allergic/Immunologic Denies hives Meds Home Medications Medication Instructions Recorded Confirmed Type allopurinol 100 mg tablet 100 mg PO BID tab 04/10/20 04/13/21 History aspirin 81 mg tablet,delayed 81 mg PO DAILY 04/10/20 04/13/21 History release cholecalciferol (vitamin D3) 25 25 mcg PO DAILY 04/10/20 04/13/21 History mcg (1,000 unit) capsule clopidogrel 75 mg tablet 75 mg PO DAILY tab 04/10/20 04/13/21 History duloxetine 60 mg capsule,delayed 60 mg PO DAILY cap 04/10/20 04/13/21 History release furosemide 80 mg tablet 40 mg PO BID tab 04/10/20 04/13/21 History gabapentin 800 mg tablet 800 mg PO TID tab 04/10/20 04/13/21 History levothyroxine 100 mcg tablet 100 mcg PO DAILY tab 04/10/20 04/13/21 History rosuvastatin 20 mg tablet 20 mg PO DAILY tab 04/10/20 04/13/21 History spironolactone 50 mg tablet 50 mg PO DAILY
[2021-04-13 21:27] LABS: POC Glucose,Bedside 527 (70-110)
[2021-04-14] VITALS (7 sets, daily range): BP systolic 104–136; BP diastolic 54–76; PULSE 75–107; RESP 18–20; TEMP 36.6–36.9; O2SAT 94–97; BMI 34.9
--- NOTE | 2021-04-14 03:19 | PC.NURSE ---
A&OX4. PT HAS BEEN ON BIPAP MAJORITY OF SHIFT, TOLERATING WELL. PT HAS SLEPT MAJORITY OF SHIFT ALSO. PT HAS HAD NO C/O THUS FAR. UP TO BEDSIDE COMMODE INDEPENDENTLY. VSS WILL CONTINUE TO MONITOR.
[2021-04-14 05:14] LABS: POC Glucose,Bedside 216 (70-110)
--- NOTE | 2021-04-14 05:17 | PC.NURSE ---
PT FSBS 216 THIS MORNING. HUMALOG ADMINISTERED PER MAR.
--- NOTE | 2021-04-14 06:00 | XR_ITS ---
PROCEDURE INFORMATION: Exam: XR Chest Exam date and time: 04/14/2021 6:00 AM Age: 60 years old Clinical indication: Dyspnea and other: Lung CA; Additional info: Volume status, lung CA TECHNIQUE: Imaging protocol: XR of the chest. Views: 1 view. COMPARISON: CR XR CHEST PORTABLE 04/13/2021 12:33 PM FINDINGS: Lungs: Stable patchy left greater than right lower lung infiltrates. Superimposed left lower lung mass lesion approaching 7 cm in greatest dimension cannot be excluded. Pleural spaces: Small left pleural effusion. Heart/Mediastinum: Mild cardiomegaly and vascular congestion. Bones/joints: Median sternotomy. IMPRESSION: Essentially stable appearance compared to exam from the previous day, with findings above.
[2021-04-14 06:05] LABS: Basophils % 0.1 % (0.1-2.0); Eosinophils % 0.1 % (0.1-12.0); Hematocrit 30.9 % (42.0-52.0); Hemoglobin 9.3 g/dL (14.1-18.0); Lymphocytes % 4.9 % (10-50); Mean Corpuscular HGB Conc 30.2 g/dL (31.8-35.4); Mean Corpuscular Hemoglobin 26.8 pg (27.0-31.2); Mean Corpuscular Volume 88.8 fl (80-94); Mean Platelet Volume 8.8 fl (7.4-10.4); Monocytes # 0.9 K/mm3 (0.1-1.0); Monocytes % 4.1 % (1.7-9.3); Neutrophils % 90.8 % (37.0-80.0); Platelet Count 232 K/mm3 (142-424); Red Blood Count 3.48 M/mm3 (4.60-6.20); Red Cell Distribution Width 17.5 % (11.5-17.5)
[2021-04-14 06:10] LABS: White Blood Count 20.9 K/mm3 (4.8-10.8)
[2021-04-14 06:12] LABS: MANUAL DIFFERENTIAL MANUAL DIFFERENTIAL (MANUAL DIFF)
[2021-04-14 06:25] LABS: Alanine Aminotransferase 19 U/L (12-78); Albumin Level 2.7 g/dl (3.5-5.0); Albumin/Globulin Ratio 0.6 (1.1-1.8); Alkaline Phosphatase 342 U/L (38-126); Anion Gap 12.1 mEq/L (5-15); Aspartate Amino Transferase 24 U/L (17-59); Bilirubin,Total 0.5 mg/dl (0.2-1.3); Blood Urea Nitrogen 36 mg/dl (9-20); Calcium 8.9 mg/dl (8.4-10.2); Carbon Dioxide 30 mmol/L (22.0-30.0); Chloride 98 mmol/L (98-107); Creatinine Clearance Estimated 56 mL/min (50-200); Estimated Glomerular Filt Rate 31 ml/min (>60); GFR (African American) 37 ML/MIN (>60); Globulin 4.2 g/dL (1.3-3.2); Glucose 204 mg/dl (74-100); Potassium 5.1 mmoL/L (3.5-5.1); Sodium 135 mmol/L (136-145); Total Protein,Serum 6.9 g/dl (6.3-8.2)
[2021-04-14 06:36] LABS: Anisocytosis 2+; Lymphocytes % 7 % (10-50); Microcytosis 2+; Neutrophils % 89 % (42-76); Platelet Estimate Normal; Poikilocytosis 2+; Total Cells Counted 100
[2021-04-14 06:37] LABS: Hypochromasia 2+; Stomatocytes 1+
--- NOTE | 2021-04-14 09:11 | HMH.ACPN2 ---
Internal Medicine - PN: Subj *Date: 04/15/21 *Time: 07:24 Interval history: some better but pt confused about details of admit - labs some better - mri brain - neg for masses Exam Vital signs and Labs for Last 24 Hours: Temp Pulse Resp BP Pulse Ox 98.4 F 102 H 20 104/54 L 97 04/14/21 08:00 04/14/21 08:00 04/14/21 08:00 04/14/21 08:00 04/14/21 08:00 Laboratory Results - last 24 hr 04/13/21 12:20: WBC 22.6 H*, RBC 3.74 L, Hgb 10.3 L, Hct 34.2 L, MCV 91.5, MCH 27.6, MCHC 30.1 L, RDW 17.3, Plt Count 304, MPV 10.1, Neut % (Auto) 93.0 H, Lymph % (Auto) 3.8 L, [place] % (Auto) 2.6, Eos % (Auto) 0.5, Baso % (Auto) 0.1, Neut # (Auto) 21.0 H, Lymph # (Auto) 0.9, [place] # (Auto) 0.6, Eos # (Auto) 0.1, Baso # (Auto) 0.0 04/13/21 12:20: Sodium 126 L, Potassium 6.1 H*, Chloride 88 L, Carbon Dioxide 29, Anion Gap 15.1 H, BUN 47 H, Creatinine 2.60 H, Estimated Creat Clear 39, Estimated GFR 25 L, Est GFR ( Amer) 31 L, Glucose 593 H*, Calcium 8.8, Total Bilirubin 1.1, AST 50 D, ALT 27, Alkaline Phosphatase 404 H, Total Protein 7.5, Albumin 2.9 L D, Globulin 4.6 H, Albumin/Globulin Ratio 0.6 L 04/13/21 13:17: Troponin I 0.03 04/13/21 14:08: SARS-CoV-2 (PCR) Not detected, Influenza A Untype (PCR) Not detected, Influenza Type B (PCR) Not detected 04/13/21 14:35: Urine Color Yellow, Urine Appearance Clear, Urine pH 7.0, Ur Specific [place] 1.010, Urine Protein Trace, Urine Glucose (UA) 3+, Urine Ketones Negative, Urine Blood Trace-i, Urine Nitrate Negative, Urine Bilirubin Negative, Urine Urobilinogen 1.0, Ur Leukocyte Esterase Negative, Urine RBC None, Urine WBC 3-5, Ur Squamous Epith Cells Occasional, Urine Bacteria Trace 04/13/21 14:35: Sodium 126 L, Potassium 5.4 H, Chloride 90 L, Carbon Dioxide 28, Anion Gap 13.4, BUN 46 H, Creatinine 2.40 H, Estimated Creat Clear 42, Estimated GFR 28 L, Est GFR ( Amer) 34 L, Glucose 607 H*, Calcium 8.6 04/13/21 15:50: Troponin I 0.04 H 04/13/21 20:56: POC Glucose 527 H* 04/14/21 04:56: POC Glucose 216 H 04/14/21 05:16: WBC 20.9 H*, RBC 3.48 L, Hgb 9.3 L, Hct 30.9 L, MCV 88.8, MCH 26.8 L, MCHC 30.2 L, RDW 17.5, Plt Count 232, MPV 8.8, Neut % (Auto) 90.8 H, Lymph % (Auto) 4.9 L, [place] % (Auto) 4.1, Eos % (Auto) 0.1, Baso % (Auto) 0.1, Neut # (Auto) 19.0 H, Lymph # (Auto) 1.0, [place] # (Auto) 0.9, Eos # (Auto) 0.0, Baso # (Auto) 0.0, Total Counted 100, Neutrophils % (Manual) 89 H, Band Neutrophils % 4.0, Lymphocytes % (Manual) 7 L, Platelet Estimate Normal, Hypochromasia 2+, Poikilocytosis 2+, Anisocytosis 2+, Microcytosis 2+, Stomatocytes 1+ 04/14/21 05:16: Sodium 135 L, Potassium 5.1, Chloride 98, Carbon Dioxide 30, Anion Gap 12.1, BUN 36 H, Creatinine 2.20 H, Estimated Creat Clear 56, Estimated GFR 31 L, Est GFR ( Amer) 37 L, Glucose 204 H D, Calcium 8.9, Total Bilirubin 0.5, AST 24 D, ALT 19 D, Alkaline Phosphatase 342 H, Total Protein 6.9, Albumin 2.7 L, Globulin 4.2 H, Albumin/Globulin Ratio 0.6 L I & O for Last 24 hours: Intake & Output 04/11/21 04/12/21 04/13/21 04/14/21 11:59 11:59 11:59 11:59 Intake Total 760 / 760 Balance 760 / 760 Weight 244 lb 6 oz - Constitutional obese, disheveled - *Routine HEENT Exam Head: Present: normocephalic Eye: Present: EOMI, PERRL ENT: Present: mucous membranes dry - *Routine Neck Exam Absent: JVD - *Routine Respiratory Exam Present: decreased breath sounds - *Routine Cardiovascular Exam Present: RRR, murmur, S4 - *Routine Abdominal Exam Present: soft - *Routine Extremities Exam Absent: calf tenderness - *Routine Skin Exam Present: intact - *Routine Neurological Exam Present: CN II-XII intact, altered mental status - Routine Psychiatric Exam Absent: good judgment Assessment and Plan (1) AGGIE (acute kidney injury) Status: Acute Category: Medical Code(s): N17.9 - Acute kidney failure, unspecified (2) CAD (coronary artery disease) Status: Chronic Qualifiers: Coronary Disease-Associated Artery/Lesi
--- NOTE | 2021-04-14 10:18 | P.CONPHA_ITS ---
[facility] VTE Monitoring - Patient Demographics Admission date: 04/13/21 Report Date: 04/14/21 Time: 10:18 Allergies/Adverse Reactions: Patient Allergies Sulfa (Sulfonamide Antibiotics) Allergy (Severe, Verified 04/12/21 08:18) S-DIFF. BREATHING albuterol Allergy (Unknown, Verified 04/12/21 08:18) Unknown allergy reaction diphenhydramine Allergy (Unknown, Verified 04/12/21 08:18) NA-NAUSEA/VOMITING iron Allergy (Unknown, Verified 04/12/21 08:18) Unknown allergy reaction lisinopril Adverse Reaction (Intermediate, Verified 04/12/21 08:18) couldnt breathe Height: 1.78 m Weight: 110.847 kg Patient Problems: Current Active Problems Mass of left lung (Chronic) AGGIE (acute kidney injury) (Acute) Hyperkalemia (Acute) Diabetes mellitus (Chronic) Dyspnea (Chronic) HTN (hypertension) (Chronic) History of coronary artery bypass graft (Chronic) CAD (coronary artery disease) (Chronic) - VTE Risk Labs: VTE Related Lab Results Hgb 9.3 g/dL (14.1-18.0) L 04/14/21 05:16 Hct 30.9 % (42.0-52.0) L 04/14/21 05:16 Plt Count 232 K/mm3 (142-424) 04/14/21 05:16 BUN 36 mg/dl (9-20) H 04/14/21 05:16 Creatinine 2.20 mg/dl (0.66-1.25) H 04/14/21 05:16 Estimated Creat Clear 56 mL/min (50-200) 04/14/21 05:16 VTE Score: 4 VTE Risk Level: Low Risk - Prophylaxis VTE Prophylaxis Ordered?: Yes Types of VTE Prophylaxis: TEDS Knee High Location of Applied Device: Bilateral Lower Extremeties
--- NOTE | 2021-04-14 10:31 | HMH.PHAINT ---
MEDICATION RECONCILIATION COMPLETED ON PATIENT USING EXTERNAL FILL HISTORY FROM PHARMACY. -NGUYEN AGUILERA, LYND
[2021-04-14 14:33] LABS: POC Glucose,Bedside 162 (70-110)
[2021-04-14 17:28] LABS: POC Glucose,Bedside 147 (70-110)
--- NOTE | 2021-04-14 18:32 | PC.NURSE ---
Pt has slept majority of the afternoon after PRN anxiety meds. Pt has kept o2 on since then, o2 sats have been stable since then. Bed alarm placed for safety, no other acute changes or complaints,.
[2021-04-15] VITALS (7 sets, daily range): BP systolic 102–146; BP diastolic 45–97; PULSE 97–116; RESP 18–32; TEMP 36.4–37; O2SAT 92–98; BMI 35.0
[2021-04-15 00:39] LABS: POC Glucose,Bedside 160 (70-110)
--- NOTE | 2021-04-15 02:51 | PC.NURSE ---
No acute events overnight. pt has been agitated and restless for most of the night, refusing to leave venti mask on, prn ativan was given and pt has rested on and off. Venti mask is on, 9L 35% O2. Pt sats remain in the 90s with mask on. Bed safety on, VSS, call light in reach, no concerns at this time.
[2021-04-15 08:56] LABS: Basophils % 0.2 % (0.1-2.0); Eosinophils # 0.1 K/mm3 (0.0-0.4); Eosinophils % 0.3 % (0.1-12.0); Hematocrit 36.5 % (42.0-52.0); Lymphocytes # 1.3 K/mm3 (0.7-4.5); Lymphocytes % 6.4 % (10-50); Mean Corpuscular HGB Conc 30.1 g/dL (31.8-35.4); Mean Corpuscular Hemoglobin 26.9 pg (27.0-31.2); Mean Corpuscular Volume 89.4 fl (80-94); Mean Platelet Volume 8.2 fl (7.4-10.4); Monocytes # 0.8 K/mm3 (0.1-1.0); Monocytes % 3.9 % (1.7-9.3); Neutrophils # 17.4 K/mm3 (1.8-7.8); Neutrophils % 89.2 % (37.0-80.0); Platelet Count 244 K/mm3 (142-424); Red Blood Count 4.08 M/mm3 (4.60-6.20); Red Cell Distribution Width 17.6 % (11.5-17.5); White Blood Count 19.5 K/mm3 (4.8-10.8)
[2021-04-15 09:04] LABS: ABG Base Excess -0.5 mmol/L (-2.4-2.3); ABG HCO3 24.6 mmhg (22.0-26.0); ABG Oxygen Saturation 93 % (90-100); ABG PCO2 42.8 mmhg (35.0-45.0); ABG PH 7.38 mmol/L (7.35-7.45); ABG PO2 71.1 mmhg (80-100); Oxygen 35 %
[2021-04-15 09:05] LABS: Allen's Test Acceptable; Source Right Radial
[2021-04-15 09:06] LABS: Chloride 101 mmol/L (98-107)
[2021-04-15 09:07] LABS: Potassium 5.3 mmoL/L (3.5-5.1); Sodium 136 mmol/L (136-145)
[2021-04-15 09:08] LABS: MANUAL DIFFERENTIAL MANUAL DIFFERENTIAL (MANUAL DIFF)
[2021-04-15 09:09] LABS: Blood Urea Nitrogen 27 mg/dl (9-20); Creatinine Clearance Estimated 62 mL/min (50-200); Estimated Glomerular Filt Rate 34 ml/min (>60); GFR (African American) 41 ML/MIN (>60)
[2021-04-15 09:10] LABS: Anion Gap 12.3 mEq/L (5-15); Calcium 9.6 mg/dl (8.4-10.2); Carbon Dioxide 28 mmol/L (22.0-30.0); Glucose 154 mg/dl (74-100)
[2021-04-15 09:54] LABS: Hypochromasia 1+; Lymphocytes % 8 % (10-50); Monocytes % 8 % (2-9); Neutrophils % 84 % (42-76); Platelet Estimate Normal; Total Cells Counted 100
[2021-04-15 11:06] LABS: POC Glucose,Bedside 216 (70-110)
[2021-04-15 11:42] LABS: POC Glucose,Bedside 147 (70-110)
--- NOTE | 2021-04-15 15:11 | PC.NURSE ---
Sputum induced. Pt unable to make productive cough. Specimen cup left at bedside.
--- NOTE | 2021-04-15 17:40 | PC.NURSE ---
Pt has slept most of the day. Pt has turned self independently in the bed. Pt has been incontinent of urine this shift. has stated she would prefer pt did not receive PRN ativan d/t pt sleeping all day long. Audible wheezes noted when entering pt's room, non productive cough noted as well. Pt has received scheduled breathing tx. No other acute changes or complaints, will continue to monitor.
--- NOTE | 2021-04-15 20:04 | HMH.ACPN2 ---
Internal Medicine - PN: Subj *Date: 04/16/21 *Time: 06:53 Interval history: more somnolent this am- Exam Vital signs and Labs for Last 24 Hours: Temp Pulse Resp BP Pulse Ox 97.6 F 97 H 24 126/97 H 95 04/15/21 15:26 04/15/21 19:08 04/15/21 15:26 04/15/21 15:26 04/15/21 15:26 Laboratory Results - last 24 hr 04/14/21 19:50: POC Glucose 160 H 04/15/21 05:40: POC Glucose 216 H 04/15/21 08:43: WBC 19.5 H, RBC 4.08 L, Hgb 11.0 L, Hct 36.5 L, MCV 89.4, MCH 26.9 L, MCHC 30.1 L, RDW 17.6 H, Plt Count 244, MPV 8.2, Neut % (Auto) 89.2 H, Lymph % (Auto) 6.4 L, [place] % (Auto) 3.9, Eos % (Auto) 0.3, Baso % (Auto) 0.2, Neut # (Auto) 17.4 H, Lymph # (Auto) 1.3, [place] # (Auto) 0.8, Eos # (Auto) 0.1, Baso # (Auto) 0.0, Total Counted 100, Neutrophils % (Manual) 84 H, Lymphocytes % (Manual) 8 L, Monocytes % (Manual) 8, Platelet Estimate Normal, Hypochromasia 1+ 04/15/21 08:43: Sodium 136, Potassium 5.3 H, Chloride 101, Carbon Dioxide 28, Anion Gap 12.3, BUN 27 H, Creatinine 2.00 H, Estimated Creat Clear 62, Estimated GFR 34 L, Est GFR ( Amer) 41 L, Glucose 154 H, Calcium 9.6 04/15/21 08:50: Specimen Source Right radial, O2 % 35, ABG pH 7.38, ABG pCO2 42.8, ABG pO2 71.1 L, ABG HCO3 24.6, ABG Total CO2 26.0, ABG O2 Saturation 93, ABG Base Excess -0.5, Simone Test Acceptable 04/15/21 11:34: POC Glucose 147 H I & O for Last 24 hours: Intake & Output 04/13/21 04/14/21 04/15/21 04/16/21 11:59 11:59 11:59 11:59 Intake Total 760 / 760 360 / 360 0 / 0 Balance 760 / 760 360 / 360 0 / 0 Weight 244 lb 6 oz 244 lb 12.8 oz - Constitutional no acute distress, obese - *Routine HEENT Exam Head: Present: normocephalic Eye: Present: EOMI, PERRL ENT: Present: mucous membranes dry - *Routine Neck Exam Absent: JVD - *Routine Respiratory Exam Present: decreased breath sounds - *Routine Cardiovascular Exam Present: RRR, murmur, S4 - *Routine Abdominal Exam Present: soft - *Routine Extremities Exam Absent: calf tenderness - *Routine Skin Exam Present: intact - *Routine Neurological Exam Present: alert, CN II-XII intact - Routine Psychiatric Exam Present: normal affect Assessment and Plan (1) AGGIE (acute kidney injury) Status: Acute Category: Medical Code(s): N17.9 - Acute kidney failure, unspecified (2) CAD (coronary artery disease) Status: Chronic Qualifiers: Coronary Disease-Associated Artery/Lesion type: [place] artery [place] vs. 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 Diabetes mellitus complication status: with other specified complication Qualified Code(s): E11.69 - Type 2 diabetes mellitus with other specified complication Category: Medical Code(s): E11.9 - Type 2 diabetes mellitus without complications (4) Dyspnea Status: Chronic Qualifiers: Dyspnea type: dyspnea on exertion Qualified Code(s): R06.00 - Dyspnea, unspecified Category: Medical Code(s): R06.00 - Dyspnea, unspecified (5) HTN (hypertension) Status: Chronic Qualifiers: Hypertension type: essential hypertension Category: Medical Code(s): I10 - Essential (primary) hypertension (6) History of coronary artery bypass graft Status: Chronic Category: Surgical Code(s): Z95.1 - Presence of aortocoronary bypass graft (7) Mass of left lung Status: Chronic Category: Medical Code(s): R91.8 - Other nonspecific abnormal finding of lung field (8) Hyperkalemia Status: Acute Category: Medical Code(s): E87.5 - Hyperkalemia (
[2021-04-16] VITALS (10 sets, daily range): BP systolic 102–149; BP diastolic 55–75; PULSE 85–122; RESP 16–30; TEMP 36.4–36.9; O2SAT 91–99; BMI 32.9; BMI 32.8
[2021-04-16 03:17] LABS: POC Glucose,Bedside 196 (70-110)
[2021-04-16 03:19] LABS: POC Glucose,Bedside 138 (70-110)
--- NOTE | 2021-04-16 03:19 | PC.NURSE ---
no acute changes overnight. pt continues to be restless, pulling mask off frequently but has rested for a majority of the shift. incontinent of urine, brief in place. Venti mask on, 9L 35%. Lungs note wheezing. Pt alert to self only this shift. VSS, call light in reach, no concerns at this time.
[2021-04-16 06:13] LABS: POC Glucose,Bedside 255 (70-110)
--- NOTE | 2021-04-16 07:54 | XR_ITS ---
PROCEDURE INFORMATION: Exam: XR Chest Exam date and time: 04/16/2021 7:54 AM Age: 61 years old Clinical indication: Condition or disease; Lung condition and disease; Cancer of the lung; Left; Unspecified; Shortness of breath; Patient HX: Known lung CA with SOA and confusion; Additional info: SOB TECHNIQUE: Imaging protocol: XR of the chest. Views: 1 view. COMPARISON: CR XR CHEST PORTABLE 04/14/2021 5:55 AM FINDINGS: Lungs: COPD and interstitial disease. Poorly defined density overlying the left lung base in the setting of reported lung carcinoma. Pleural spaces: Small suspected left pleural effusion. Heart/Mediastinum: No cardiomegaly. Bypass surgery. Bones/joints: Median sternotomy and broken sutures. Degenerative change. When correlating with the previous study, no significant interval changes are present. IMPRESSION: Stable appearance of the chest, not significantly changed from 04/14/2021 .
[2021-04-16 08:40] LABS: Basophils % 0.1 % (0.1-2.0); Eosinophils % 0.1 % (0.1-12.0); Hemoglobin 10.8 g/dL (14.1-18.0); Lymphocytes # 1.1 K/mm3 (0.7-4.5); Mean Corpuscular Hemoglobin 27.1 pg (27.0-31.2); Mean Corpuscular Volume 90.6 fl (80-94); Mean Platelet Volume 8.9 fl (7.4-10.4); Monocytes # 0.9 K/mm3 (0.1-1.0); Neutrophils # 19.9 K/mm3 (1.8-7.8); Neutrophils % 90.8 % (37.0-80.0); Platelet Count 283 K/mm3 (142-424); Red Blood Count 3.97 M/mm3 (4.60-6.20); Red Cell Distribution Width 17.7 % (11.5-17.5); White Blood Count 21.9 K/mm3 (4.8-10.8)
--- NOTE | 2021-04-16 08:59 | HMH.ACPN2 ---
Internal Medicine - PN: Subj *Date: 04/17/21 *Time: 08:13 Interval history: more alert but still sob Exam Vital signs and Labs for Last 24 Hours: Temp Pulse Resp BP Pulse Ox 98.0 F 122 H 30 H 149/73 H 94 L 04/16/21 08:00 04/16/21 08:00 04/16/21 08:00 04/16/21 08:00 04/16/21 08:00 Laboratory Results - last 24 hr 04/15/21 05:40: POC Glucose 216 H 04/15/21 08:43: WBC 19.5 H, RBC 4.08 L, Hgb 11.0 L, Hct 36.5 L, MCV 89.4, MCH 26.9 L, MCHC 30.1 L, RDW 17.6 H, Plt Count 244, MPV 8.2, Neut % (Auto) 89.2 H, Lymph % (Auto) 6.4 L, [place] % (Auto) 3.9, Eos % (Auto) 0.3, Baso % (Auto) 0.2, Neut # (Auto) 17.4 H, Lymph # (Auto) 1.3, [place] # (Auto) 0.8, Eos # (Auto) 0.1, Baso # (Auto) 0.0, Total Counted 100, Neutrophils % (Manual) 84 H, Lymphocytes % (Manual) 8 L, Monocytes % (Manual) 8, Platelet Estimate Normal, Hypochromasia 1+ 04/15/21 08:43: Sodium 136, Potassium 5.3 H, Chloride 101, Carbon Dioxide 28, Anion Gap 12.3, BUN 27 H, Creatinine 2.00 H, Estimated Creat Clear 62, Estimated GFR 34 L, Est GFR ( Amer) 41 L, Glucose 154 H, Calcium 9.6 04/15/21 08:50: Specimen Source Right radial, O2 % 35, ABG pH 7.38, ABG pCO2 42.8, ABG pO2 71.1 L, ABG HCO3 24.6, ABG Total CO2 26.0, ABG O2 Saturation 93, ABG Base Excess -0.5, Simone Test Acceptable 04/15/21 11:34: POC Glucose 147 H 04/15/21 16:28: POC Glucose 138 H 04/15/21 20:21: POC Glucose 196 H 04/16/21 05:30: POC Glucose 255 H I & O for Last 24 hours: Intake & Output 04/13/21 04/14/21 04/15/21 04/16/21 11:59 11:59 11:59 11:59 Intake Total 760 / 760 360 / 360 360 / 360 Balance 760 / 760 360 / 360 360 / 360 Weight 244 lb 6 oz 244 lb 12.8 oz 230 lb 4 oz - Constitutional no acute distress, obese - *Routine HEENT Exam Head: Present: normocephalic Eye: Present: EOMI, PERRL ENT: Present: mucous membranes dry - *Routine Neck Exam Present: supple. Absent: JVD - *Routine Respiratory Exam Present: decreased breath sounds - *Routine Cardiovascular Exam Present: RRR - *Routine Abdominal Exam Present: soft - *Routine Extremities Exam Absent: calf tenderness - *Routine Skin Exam Present: intact - *Routine Neurological Exam Present: alert, CN II-XII intact - Routine Psychiatric Exam Present: unable to assess Assessment and Plan (1) AGGIE (acute kidney injury) Status: Acute Category: Medical Code(s): N17.9 - Acute kidney failure, unspecified (2) CAD (coronary artery disease) Status: Chronic Qualifiers: Coronary Disease-Associated Artery/Lesion type: [place] artery [place] vs. transplanted heart: [place] heart Associated angina: with other forms of angina Qualified Code(s): I25.118 - Atherosclerotic heart disease of [place] coronary artery with other forms of angina pectoris Category: Medical Code(s): I25.10 - Atherosclerotic heart disease of [place] coronary artery without angina pectoris (3) Diabetes mellitus Status: Chronic Qualifiers: Diabetes mellitus type: type 2 Diabetes mellitus intermodal owner operator truck driver insulin use: unspecified intermodal owner operator truck driver insulin use status Diabetes mellitus complication status: with other specified complication Qualified Code(s): E11.69 - Type 2 diabetes mellitus with other specified complication Category: Medical Code(s): E11.9 - Type 2 diabetes mellitus without complications (4) Dyspnea Status: Chronic Qualifiers: Dyspnea type: dyspnea on exertion Qualified Code(s): R06.00 - Dyspnea, unspecified Category: Medical Code(s): R06.00 - Dyspnea, unspecified (5) HTN (hypertension) Status: Chronic Qualifiers: Hypertension type: essential hypertension Category: Medical Code(s): I10 - Essential (primary) hypertension (6) History of coronary artery bypass graft Status: Chronic Category: Surgical Code(s): Z95.1 - Presence of aortocoronary bypass graft (7) Mass of left lung Status: Chronic Category: Medical Code(s): R91.8 - Other nonspecific abnormal finding of lung f
[2021-04-16 09:04] LABS: Anion Gap 14.4 mEq/L (5-15); Blood Urea Nitrogen 30 mg/dl (9-20); Calcium 10.1 mg/dl (8.4-10.2); Carbon Dioxide 26 mmol/L (22.0-30.0); Chloride 99 mmol/L (98-107); Creatinine Clearance Estimated 57 mL/min (50-200); Estimated Glomerular Filt Rate 34 ml/min (>60); GFR (African American) 41 ML/MIN (>60); Glucose 234 mg/dl (74-100); MANUAL DIFFERENTIAL MANUAL DIFFERENTIAL (MANUAL DIFF); Potassium 5.4 mmoL/L (3.5-5.1); Sodium 134 mmol/L (136-145)
[2021-04-16 09:55] LABS: Lymphocytes % 6 % (10-50); Monocytes % 5 % (2-9); Neutrophils % 89 % (42-76); Total Cells Counted 100
[2021-04-16 09:56] LABS: Anisocytosis 1+; Hypochromasia 2+; Macrocytosis 1+; Platelet Estimate Normal
--- NOTE | 2021-04-16 10:07 | HMH.ACPN ---
Internal Medicine - PN: Subj *Date: 04/16/21 *Time: 10:07 Exam Vital signs and Labs for Last 24 Hours: Temp Pulse Resp BP Pulse Ox 98.0 F 122 H 30 H 149/73 H 94 L 04/16/21 08:00 04/16/21 08:00 04/16/21 08:00 04/16/21 08:00 04/16/21 08:00 Laboratory Results - last 24 hr 04/15/21 05:40: POC Glucose 216 H 04/15/21 11:34: POC Glucose 147 H 04/15/21 16:28: POC Glucose 138 H 04/15/21 20:21: POC Glucose 196 H 04/16/21 05:30: POC Glucose 255 H 04/16/21 08:33: WBC 21.9 H*, RBC 3.97 L, Hgb 10.8 L, Hct 36.0 L, MCV 90.6, MCH 27.1, MCHC 30.0 L, RDW 17.7 H, Plt Count 283, MPV 8.9, Neut % (Auto) 90.8 H, Lymph % (Auto) 5.0 L, [place] % (Auto) 4.0, Eos % (Auto) 0.1, Baso % (Auto) 0.1, Neut # (Auto) 19.9 H, Lymph # (Auto) 1.1, [place] # (Auto) 0.9, Eos # (Auto) 0.0, Baso # (Auto) 0.0, Total Counted 100, Neutrophils % (Manual) 89 H, Lymphocytes % (Manual) 6 L, Monocytes % (Manual) 5, Platelet Estimate Normal, Hypochromasia 2+, Anisocytosis 1+, Macrocytosis 1+ 04/16/21 08:33: Sodium 134 L, Potassium 5.4 H, Chloride 99, Carbon Dioxide 26, Anion Gap 14.4, BUN 30 H, Creatinine 2.00 H, Estimated Creat Clear 57, Estimated GFR 34 L, Est GFR ( Amer) 41 L, Glucose 234 H D, Calcium 10.1 I & O for Last 24 hours: Intake & Output 04/13/21 04/14/21 04/15/21 04/16/21 23:59 23:59 23:59 23:59 Intake Total 160 / 640 960 / 960 0 / 0 360 / 360 Balance 160 / 640 960 / 960 0 / 0 360 / 360 Weight 110.818 kg 110.847 kg 111.039 kg 104.44 kg Assessment and Plan (1) AGGIE (acute kidney injury) Status: Acute Category: Medical Code(s): N17.9 - Acute kidney failure, unspecified (2) CAD (coronary artery disease) Status: Chronic Qualifiers: Coronary Disease-Associated Artery/Lesion type: [place] artery [place] vs. 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 Diabetes mellitus complication status: with other specified complication Qualified Code(s): E11.69 - Type 2 diabetes mellitus with other specified complication Category: Medical Code(s): E11.9 - Type 2 diabetes mellitus without complications (4) Dyspnea Status: Chronic Qualifiers: Dyspnea type: dyspnea on exertion Qualified Code(s): R06.00 - Dyspnea, unspecified Category: Medical Code(s): R06.00 - Dyspnea, unspecified (5) HTN (hypertension) Status: Chronic Qualifiers: Hypertension type: essential hypertension Category: Medical Code(s): I10 - Essential (primary) hypertension (6) History of coronary artery bypass graft Status: Chronic Category: Surgical Code(s): Z95.1 - Presence of aortocoronary bypass graft (7) Mass of left lung Status: Chronic Category: Medical Code(s): R91.8 - Other nonspecific abnormal finding of lung field (8) Hyperkalemia Status: Acute Category: Medical Code(s): E87.5 - Hyperkalemia (9) CAP (community acquired pneumonia) Status: Acute Qualifiers: Laterality: unspecified laterality Qualified Code(s): J18.9 - Pneumonia, unspecified organism Category: Medical Code(s): J18.9 - Pneumonia, unspecified organism The patient's infection will respond to the chosen ABx?: Yes Is the patient receiving the right drug, dose, and route?: Yes Could a more targeted ABx be ordered?: No (WBC CONTINUES TO BE ELEVATED, AFEBRILE AT THIS TIME.)
[2021-04-16 12:04] LABS: POC Glucose,Bedside 248 (70-110)
[2021-04-16 16:19] LABS: POC Glucose,Bedside 277 (70-110)
--- NOTE | 2021-04-16 16:33 | PC.NURSE ---
Called and spoke with Dr. mcmullen at this time and made him aware that pt is very restless and breathing 26-28 times a minute. Venti mask @ 50 % placed on and pt 94-95%. Pt's color is pale/[place]. Feet are cool to touch. VSS at this time. Dr. Mcmullen ordered a cbc and cmp stat and abg. RT here at this time.Lab notified of need for labs. remains on bedside.
[2021-04-16 16:43] LABS: ABG Base Excess -2.5 mmol/L (-2.4-2.3); ABG HCO3 22.5 mmhg (22.0-26.0); ABG Oxygen Saturation 98 % (90-100); ABG PCO2 37.8 mmhg (35.0-45.0); ABG PH 7.39 mmol/L (7.35-7.45); ABG PO2 99.4 mmhg (80-100); ABG TCO2 23.6 mmhg (23-27)
[2021-04-16 16:45] LABS: Allen's Test Acceptable; Source Left Radial
[2021-04-16 16:54] LABS: Basophils % 0.1 % (0.1-2.0); Eosinophils % 0.1 % (0.1-12.0); Hematocrit 33.9 % (42.0-52.0); Lymphocytes # 1.2 K/mm3 (0.7-4.5); Lymphocytes % 6.2 % (10-50); Mean Corpuscular HGB Conc 29.6 g/dL (31.8-35.4); Mean Corpuscular Hemoglobin 26.6 pg (27.0-31.2); Mean Corpuscular Volume 89.8 fl (80-94); Mean Platelet Volume 8.8 fl (7.4-10.4); Monocytes # 0.8 K/mm3 (0.1-1.0); Monocytes % 4.3 % (1.7-9.3); Neutrophils # 17.5 K/mm3 (1.8-7.8); Neutrophils % 89.3 % (37.0-80.0); Platelet Count 242 K/mm3 (142-424); Red Blood Count 3.78 M/mm3 (4.60-6.20); Red Cell Distribution Width 17.6 % (11.5-17.5); White Blood Count 19.6 K/mm3 (4.8-10.8)
[2021-04-16 17:00] LABS: Alanine Aminotransferase 25 U/L (12-78); Albumin Level 2.9 g/dl (3.5-5.0); Albumin/Globulin Ratio 0.6 (1.1-1.8); Alkaline Phosphatase 361 U/L (38-126); Anion Gap 14.3 mEq/L (5-15); Aspartate Amino Transferase 42 U/L (17-59); Bilirubin,Total 1.6 mg/dl (0.2-1.3); Blood Urea Nitrogen 33 mg/dl (9-20); Calcium 9.7 mg/dl (8.4-10.2); Carbon Dioxide 25 mmol/L (22.0-30.0); Chloride 101 mmol/L (98-107); Creatinine Clearance Estimated 57 mL/min (50-200); Estimated Glomerular Filt Rate 34 ml/min (>60); GFR (African American) 41 ML/MIN (>60); Globulin 4.9 g/dL (1.3-3.2); Glucose 263 mg/dl (74-100); Potassium 5.3 mmoL/L (3.5-5.1); Sodium 135 mmol/L (136-145); Total Protein,Serum 7.8 g/dl (6.3-8.2)
[2021-04-16 17:02] LABS: MANUAL DIFFERENTIAL MANUAL DIFFERENTIAL (MANUAL DIFF)
[2021-04-16 17:23] LABS: Lymphocytes % 4 % (10-50); Monocytes % 3 % (2-9); Neutrophils % 93 % (42-76); Total Cells Counted 100
[2021-04-16 17:24] LABS: Anisocytosis 1+; Hypochromasia 1+; Platelet Estimate Normal
--- NOTE | 2021-04-16 18:49 | PC.NURSE ---
pt is on home bipap
--- NOTE | 2021-04-16 19:38 | PC.NURSE ---
Spoke with Dr. Kaye and made him aware of abg readings and he did request pt to be on bipap. Pt resting at this time on home bipap,put on per RT, now that brought machine in. CB in reach. Bed alarm in place. VSS. Pt was alert to self this and place this am.
[2021-04-16 21:27] LABS: POC Glucose,Bedside 193 (70-110)
[2021-04-17] VITALS (12 sets, daily range): BP systolic 102–111; BP diastolic 59–64; PULSE 84–126; RESP 16–28; TEMP 36.5–37.3; O2SAT 89–99; BMI 32.2
--- NOTE | 2021-04-17 02:44 | PC.NURSE ---
Patient is alert to self and place. Patient had an episode of oxygen saturation dropping down below 90 on home BiPAP. Patient was placed back on facility BiPAP and oxygen saturation has been maintained in the upper 90s. No other issues noted this shift. VSS, call light within reach, will continue to monitor.
[2021-04-17 06:02] LABS: POC Glucose,Bedside 189 (70-110)
[2021-04-17 08:55] LABS: Basophils % 0.1 % (0.1-2.0); Eosinophils % 0.1 % (0.1-12.0); Hematocrit 36.7 % (42.0-52.0); Hemoglobin 10.7 g/dL (14.1-18.0); Lymphocytes # 1.3 K/mm3 (0.7-4.5); Lymphocytes % 6.5 % (10-50); Mean Corpuscular HGB Conc 29.1 g/dL (31.8-35.4); Mean Corpuscular Hemoglobin 26.7 pg (27.0-31.2); Mean Corpuscular Volume 91.7 fl (80-94); Mean Platelet Volume 8.5 fl (7.4-10.4); Monocytes # 0.9 K/mm3 (0.1-1.0); Monocytes % 4.5 % (1.7-9.3); Neutrophils # 18.2 K/mm3 (1.8-7.8); Neutrophils % 88.8 % (37.0-80.0); Platelet Count 256 K/mm3 (142-424); Red Cell Distribution Width 17.8 % (11.5-17.5); White Blood Count 20.5 K/mm3 (4.8-10.8)
[2021-04-17 09:01] LABS: MANUAL DIFFERENTIAL MANUAL DIFFERENTIAL (MANUAL DIFF)
[2021-04-17 09:06] LABS: Anion Gap 17.8 mEq/L (5-15); Blood Urea Nitrogen 40 mg/dl (9-20); Calcium 9.8 mg/dl (8.4-10.2); Carbon Dioxide 24 mmol/L (22.0-30.0); Chloride 102 mmol/L (98-107); Creatinine Clearance Estimated 49 mL/min (50-200); Estimated Glomerular Filt Rate 29 ml/min (>60); GFR (African American) 35 ML/MIN (>60); Glucose 224 mg/dl (74-100); Potassium 5.8 mmoL/L (3.5-5.1); Sodium 138 mmol/L (136-145)
[2021-04-17 09:18] LABS: Eosinophils % 1 % (0-3); Hypochromasia 2+; Lymphocytes % 5 % (10-50); Macrocytosis 1+; Monocytes % 9 % (2-9); Neutrophils % 85 % (42-76); Platelet Estimate Normal; Total Cells Counted 100
--- NOTE | 2021-04-17 09:19 | HMH.ACPN2 ---
Internal Medicine - PN: Subj *Date: 04/17/21 *Time: 11:49 Interval history: 61-year-old male patient lying in bed resting quietly with at bedside. Current oxygenation 98% on 4 L per nasal cannula, tolerated BiPAP all night without difficulty Exam Vital signs and Labs for Last 24 Hours: Temp Pulse Resp BP Pulse Ox 97.7 F 95 H 20 102/61 L 99 04/17/21 07:16 04/17/21 07:16 04/17/21 07:16 04/17/21 07:16 04/17/21 07:16 Laboratory Results - last 24 hr 04/16/21 08:33: Total Counted 100, Neutrophils % (Manual) 89 H, Lymphocytes % (Manual) 6 L, Monocytes % (Manual) 5, Platelet Estimate Normal, Hypochromasia 2+, Anisocytosis 1+, Macrocytosis 1+ 04/16/21 11:28: POC Glucose 248 H 04/16/21 15:27: POC Glucose 277 H 04/16/21 16:27: Specimen Source Left radial, O2 % 50 vm, ABG pH 7.39, ABG pCO2 37.8, ABG pO2 99.4, ABG HCO3 22.5, ABG Total CO2 23.6, ABG O2 Saturation 98, ABG Base Excess -2.5 L, Simone Test Acceptable 04/16/21 16:39: WBC 19.6 H, RBC 3.78 L, Hgb 10.0 L, Hct 33.9 L, MCV 89.8, MCH 26.6 L, MCHC 29.6 L, RDW 17.6 H, Plt Count 242, MPV 8.8, Neut % (Auto) 89.3 H, Lymph % (Auto) 6.2 L, [place]ern % (Auto) 4.3, Eos % (Auto) 0.1, Baso % (Auto) 0.1, Neut # (Auto) 17.5 H, Lymph # (Auto) 1.2, Kern # (Auto) 0.8, Eos # (Auto) 0.0, Baso # (Auto) 0.0, Total Counted 100, Neutrophils % (Manual) 93 H, Lymphocytes % (Manual) 4 L, Monocytes % (Manual) 3, Platelet Estimate Normal, Hypochromasia 1+, Anisocytosis 1+ 04/16/21 16:39: Sodium 135 L, Potassium 5.3 H, Chloride 101, Carbon Dioxide 25, Anion Gap 14.3, BUN 33 H, Creatinine 2.00 H, Estimated Creat Clear 57, Estimated GFR 34 L, Est GFR ( Amer) 41 L, Glucose 263 H, Calcium 9.7, Total Bilirubin 1.6 H, AST 42 D, ALT 25 D, Alkaline Phosphatase 361 H, Total Protein 7.8, Albumin 2.9 L, Globulin 4.9 H, Albumin/Globulin Ratio 0.6 L 04/16/21 19:54: POC Glucose 193 H 04/17/21 05:32: POC Glucose 189 H 04/17/21 08:45: WBC 20.5 H*, RBC 4.00 L, Hgb 10.7 L, Hct 36.7 L, MCV 91.7, MCH 26.7 L, MCHC 29.1 L, RDW 17.8 H, Plt Count 256, MPV 8.5, Neut % (Auto) 88.8 H, Lymph % (Auto) 6.5 L, [place] % (Auto) 4.5, Eos % (Auto) 0.1, Baso % (Auto) 0.1, Neut # (Auto) 18.2 H, Lymph # (Auto) 1.3, [place] # (Auto) 0.9, Eos # (Auto) 0.0, Baso # (Auto) 0.0, Total Counted 100, Neutrophils % (Manual) 85 H, Lymphocytes % (Manual) 5 L, Monocytes % (Manual) 9, Eosinophils % (Manual) 1, Platelet Estimate Normal, Hypochromasia 2+, Macrocytosis 1+ 04/17/21 08:45: Sodium 138, Potassium 5.8 H, Chloride 102, Carbon Dioxide 24, Anion Gap 17.8 H, BUN 40 H, Creatinine 2.30 H, Estimated Creat Clear 49, Estimated GFR 29 L, Est GFR ( Amer) 35 L, Glucose 224 H, Calcium 9.8 I & O for Last 24 hours: Intake & Output 04/14/21 04/15/21 04/16/21 04/17/21 23:59 23:59 23:59 23:59 Intake Total 960 / 960 0 / 0 830 / 830 855 / 855 Output Total 0 / 0 Balance 960 / 960 0 / 0 830 / 830 855 / 855 Weight 244 lb 6 oz 244 lb 12.8 oz 229 lb 4.492 oz 225 lb 6.4 oz - Constitutional no acute distress, chronically ill appearing - *Routine HEENT Exam Head: Present: normocephalic Eye: Present: EOMI ENT: Present: mucous membranes moist - *Routine Neck Exam Present: trachea midline. Absent: tracheal deviation - *Routine Respiratory Exam Present: decreased breath sounds. Absent: accessory muscle use - *Routine Cardiovascular Exam Present: RRR - *Routine Abdominal Exam Present: soft, normoactive bowel sounds. Absent: tenderness, firm - *Routine Extremities Exam Present: full ROM, pulses intact. Absent: cyanosis, clubbing, calf tenderness - *Routine Skin Exam Present: intact, dry. Absent: cyanosis, erythema - *Routine Neurological Exam Present: alert, oriented X3. Absent: motor deficit - Routine Psychiatric Exam Present: normal affect, normal thought process. Absent: auditory hallucinations, visual hallucinations Assessment and Plan (1) AGGIE (acute kidney injury) Status: Acute Category: Medical Code(s): N17.9 - Acute kidney vick
[2021-04-17 11:42] LABS: POC Glucose,Bedside 230 (70-110)
--- NOTE | 2021-04-17 12:59 | HMH.PULMCON ---
*Admission Date: 04/13/21 *Reason for consult:: History of lung cancer *History of present illness: Mr. Kaufman 61-year-old male with a history of pulmonary fibrosis, COPD, recently diagnosed lung cancer active received his PET scan and treatment initiation by oncology presented to hospital with worsening weakness pulmonary was called for further management. Patient denies any worsening cough or productive phlegm or worsening respiratory distress. He admits compliant with his CPAP machine at home along with his inhaler nebulizer therapy. [facility] History Medical History: Reports:: Cancer, Congestive Heart Failure, Chronic Obstructive Pulmonary Disease (COPD), Coronary Artery Disease, Diabetes Mellitus Type 2, Home Oxygen, Hyperlipidemia, Hypertension, Myocardial Infarction, Peripheral Vascular Disease, Renal Disease Denies:: Diabetes Mellitus Type 1, Internal Pacemaker, MRSA, Seizures *Have you ever received a pneumonia vaccine?: Yes *Have you received a flu vaccine this season?: No Other Medical History: Reports: Hypothyroidism, Thyroid Disease. Denies: Blood Transfusion Reaction Other Surgeries: Yes: CABG, Cardiac Catheterization, Cardiac Surgery, Cholecystectomy, Coronary Stent. No: Pacemaker Amputation: No Fractures: No - *Social History Last grade of school completed: High school graduate Smoking Status: Current every day smoker Tobacco Type: cigarettes # Packs/Day (cigarettes): 1 Alcohol Intake: never Substance Use Type: denies use *Occupational Status:: disabled Housing: house Household Members: spouse *Travel in the last 8 weeks: None Family Hx:: Non-contributory ROS - Cons Reports anorexia, Reports body ache(s), Reports chills - ENT Denies bleeding gums - Card Reports shortness of breath, Reports shortness of breath with activity, Denies leg swelling - Resp Respiratory: Reports shortness of breath, Denies change in phlegm color, Denies chest congestion, Denies cough, Denies non-productive cough, Reports dyspnea - GI Gastrointestingal: Denies: abdominal pain - [place] Musculoskeletal: Reports back pain, Reports muscle cramps, Reports muscle weakness - Psych Reports abnormal sleep pattern Meds Home Medications Medication Instructions Recorded Confirmed Type allopurinol 100 mg tablet 100 mg PO BID tab 04/10/20 04/13/21 History aspirin 81 mg tablet,delayed 81 mg PO DAILY 04/10/20 04/13/21 History release cholecalciferol (vitamin D3) 25 25 mcg PO DAILY 04/10/20 04/13/21 History mcg (1,000 unit) capsule clopidogrel 75 mg tablet 75 mg PO DAILY tab 04/10/20 04/13/21 History duloxetine 60 mg capsule,delayed 60 mg PO DAILY cap 04/10/20 04/13/21 History release furosemide 80 mg tablet 40 mg PO BID tab 04/10/20 04/13/21 History gabapentin 800 mg tablet 800 mg PO TID tab 04/10/20 04/13/21 History levothyroxine 100 mcg tablet 100 mcg PO DAILY tab 04/10/20 04/13/21 History rosuvastatin 20 mg tablet 20 mg PO DAILY tab 04/10/20 04/13/21 History spironolactone 50 mg tablet 50 mg PO DAILY tab 04/10/20 04/13/21 History trazodone 50 mg tablet 25 - 50 mg PO HSP PRN tab 04/10/20 04/14/21 History losartan 25 mg tablet 25 mg PO DAILY tab 11/22/20 04/13/21 History semaglutide 0.5 mg SQ WEEKLY ml 11/22/20 04/13/21 History Insulin Glargine,Hum.rec.anlog 90 units SQ DAILY 03/29/21 04/13/21 History [Julissa Duarte] Metoprolol Tartrate 75 mg PO BID 03/29/21 04/14/21 History Nitroglycerin [Nitrostat 0.4mg SL 0.4 mg SL Q5MINP PRN 03/29/21 04/13/21 History Tablet] Omeprazole [Omeprazole 20mg 20 mg PO DAILY 03/29/21 04/13/21 History Capsule] albuterol sulfate 90 mcg/actuation 1 inh INHALATION Q6H PRN 90 Days 04/02/21 04/13/21 Rx aerosol inhaler #8.5 g Fluticasone/Umeclidin/Vilanter 1 puff IH DAILY 04/14/21 04/14/21 History [Trelegy Ellipta 100-62.5-25] Ipratropium/Albuterol Sulfate 3 ml IH QIDP PRN 04/14/21 04/14/21 History [Duoneb 3mL neb] Nystatin 4 ml PO QID 04/14/21 04/14/21 History Ti
--- NOTE | 2021-04-17 14:28 | HMH.SLDYSPHA ---
Speech & Language Evaluation Speech/Language Dysphagia Evaluation Start: 04/17/21 14:18 Freq: ONCE Status: Active Protocol: Document 04/17/21 14:18 ABRAHAM (Rec: 04/17/21 14:28 ABRAHAM [id number]) Dysphagia Assess/Goals/Plan Assessment Date of Evaluation: 04/17/21 Evaluation Type Initial Certification Assessment/Problems Dysphagia Does Patient Qualify for Service No Qualify/Failure Comment Patient showed no signs or symptoms of dysphagia Recommendations PHYSICIAN CERTIFICATION: The specified therapy services are required, authorized, and reviewed every 30 days. Diet Recommendations Mechanical Soft Liquid Type Recommendations Normal/Thin SL Swallow Guidelines Standard Aspiration Prec. Crush Meds Small pills w/applesauce,Small OK/Crush large pill,Crush lge pills w/applesa Dysphagia Swallow Precautions/Strategies Sitting Upright (90 deg),Small Bites and Sips,Alternate Liquids/Solids Plan Pt/Guardian verbally ack understanding Yes of dx/prognosis/goals G -code Required No General Information General Current Food Consistancy Regular,Thin Liquids Dentition Edentulous Comment: Dentures not at [facility] Oxygen Status Nasal Cannula Facial Symmetry Symmetrical Patient Orientation Person,Place,Time Ability to Follow Directions Excellent Communication Ability No Impairment Dysphagia:Food Presentation Evaluation Food Type Mechanical Soft,Regular,Liquid ,Pudding Normal/Thin Liquid Response Coughing after swallow Dysphagia Evaluation Summary Mr. Kaufman was given the following consistencies: thins via straw and open cup, pudding, mechanical soft, and regular. Mr. Kaufman did exhibit coughing after large volume of consecutive gulps of thin liquids. When asked to take smaller sips of thin liquids, no coughing was noted . No other signs or symptoms of dysphagia noted. Mr. Kaufman will be placed on mechanical soft diet with chopped meats with sauce or gravy with thin liquids. He is advised to take small sips and alternate between a bite
[2021-04-17 17:16] LABS: POC Glucose,Bedside 221 (70-110)
[2021-04-17 18:43] LABS: Microscopic, Urine URINE MICROSCOPIC (MICROSCOPIC)
[2021-04-17 18:49] LABS: Appearance,Urine SL CLOUDY (Clear); Blood, Urine Negative (Negative); Color,Urine DK YELLOW (Yellow); Glucose,Urine (UA) Negative (Negative); Ketones,Urine Negative (Negative); Leukocyte Esterase,Urine Negative (Negative); Nitrate,Urine Negative (Negative); Protein,Urine 1+ (Negative)
[2021-04-17 19:15] LABS: Bacteria,Urine 4+ /lpf; Bilirubin,Urine 1+ (Negative); Squamous Epithelial Cell,Urine Occasional #/hpf (0-5); WBC,Urine Occasional #/hpf (0-3)
--- NOTE | 2021-04-17 20:10 | PC.NURSE ---
DURING ROUNDS PT'S STATED PT HAS NOT HAD ANY UOP SINCE SHE HAS BEEN AT BEDSIDE THIS MORNING. ABDOMEN SOFT ON PALPATION. NO TENDERNESS NOTED. WHILE LOOKING IN THE CHART IT WAS NOTED PT DID NOT HAVE ANY UOP SINCE 0000 04/17. ERIKA'S OFFICE NOTIFIED. ORDER WAS GIVEN TO INSERT CATHETER AND IF HE HAD MORE THAN 250 ML'S OF UOP TO LEAVE CATHETER. 16 FR CATHETER INSERTED PT HAD 650 ML'S DARK DAGMAR UOP. URINE SPECIMEN SENT TO LAB. OFFICE WAS NOTIFIED THAT CATHETER WAS LEFT IN PLACE.
[2021-04-17 20:50] LABS: POC Glucose,Bedside 290 (70-110)
[2021-04-18] VITALS (9 sets, daily range): BP systolic 107–134; BP diastolic 52–72; PULSE 77–122; RESP 16–25; TEMP 36.7–37.1; O2SAT 92–98; BMI 32.3
--- NOTE | 2021-04-18 03:09 | PC.NURSE ---
Pt is A/O to self. Remained on 4L NC, wearing Bipap at night and tolerated very well. O2 remained >90% t/o shift. Pt has a bautista that is draining dark yellow, with sediment urine. Pt denies any pain. VSS, call light within reach, will continue to monitor.
[2021-04-18 05:40] LABS: POC Glucose,Bedside 231 (70-110)
[2021-04-18 07:13] LABS: Basophils % 0.2 % (0.1-2.0); Eosinophils % 0.1 % (0.1-12.0); Hematocrit 30.1 % (42.0-52.0); Lymphocytes # 1.2 K/mm3 (0.7-4.5); Lymphocytes % 6.1 % (10-50); Mean Corpuscular HGB Conc 29.9 g/dL (31.8-35.4); Mean Corpuscular Hemoglobin 27.4 pg (27.0-31.2); Mean Corpuscular Volume 91.5 fl (80-94); Mean Platelet Volume 9.3 fl (7.4-10.4); Monocytes # 1.1 K/mm3 (0.1-1.0); Monocytes % 5.3 % (1.7-9.3); Neutrophils # 17.9 K/mm3 (1.8-7.8); Neutrophils % 88.3 % (37.0-80.0); Platelet Count 230 K/mm3 (142-424); Red Blood Count 3.29 M/mm3 (4.60-6.20); Red Cell Distribution Width 17.9 % (11.5-17.5); White Blood Count 20.2 K/mm3 (4.8-10.8)
[2021-04-18 07:29] LABS: Blood Urea Nitrogen 44 mg/dl (9-20); Calcium 9.2 mg/dl (8.4-10.2); Carbon Dioxide 24 mmol/L (22.0-30.0); Chloride 100 mmol/L (98-107); Creatinine Clearance Estimated 49 mL/min (50-200); Estimated Glomerular Filt Rate 29 ml/min (>60); GFR (African American) 35 ML/MIN (>60); Glucose 215 mg/dl (74-100); Sodium 135 mmol/L (136-145)
[2021-04-18 07:39] LABS: Anion Gap 16.9 mEq/L (5-15); Potassium 5.9 mmoL/L (3.5-5.1)
[2021-04-18 07:42] LABS: MANUAL DIFFERENTIAL MANUAL DIFFERENTIAL (MANUAL DIFF)
[2021-04-18 08:34] LABS: Anisocytosis 1+; Hypochromasia 3+; Lymphocytes % 2 % (10-50); Macrocytosis 2+; Monocytes % 5 % (2-9); Neutrophils % 93 % (42-76); Platelet Estimate Normal; Total Cells Counted 100
--- NOTE | 2021-04-18 08:53 | HMH.PULMPN ---
Internal Medicine - PN: Subj *Date: 04/18/21 *Time: 08:53 Assessment and Plan (1) AGGIE (acute kidney injury) Status: Acute Category: Medical Code(s): N17.9 - Acute kidney failure, unspecified (2) CAD (coronary artery disease) Status: Chronic Qualifiers: Coronary Disease-Associated Artery/Lesion type: [place] artery [place] vs. transplanted heart: [place] heart Associated angina: with other forms of angina Qualified Code(s): I25.118 - Atherosclerotic heart disease of [place] coronary artery with other forms of angina pectoris Category: Medical Code(s): I25.10 - Atherosclerotic heart disease of [place] coronary artery without angina pectoris (3) Diabetes mellitus Status: Chronic Qualifiers: Diabetes mellitus type: type 2 Diabetes mellitus senior care insulin use: unspecified senior care insulin use status Diabetes mellitus complication status: with other specified complication Qualified Code(s): E11.69 - Type 2 diabetes mellitus with other specified complication Category: Medical Code(s): E11.9 - Type 2 diabetes mellitus without complications (4) Dyspnea Status: Chronic Qualifiers: Dyspnea type: dyspnea on exertion Qualified Code(s): R06.00 - Dyspnea, unspecified Category: Medical Code(s): R06.00 - Dyspnea, unspecified (5) HTN (hypertension) Status: Chronic Qualifiers: Hypertension type: essential hypertension Category: Medical Code(s): I10 - Essential (primary) hypertension (6) History of coronary artery bypass graft Status: Chronic Category: Surgical Code(s): Z95.1 - Presence of aortocoronary bypass graft (7) Mass of left lung Status: Chronic Category: Medical Code(s): R91.8 - Other nonspecific abnormal finding of lung field (8) Hyperkalemia Status: Acute Category: Medical Code(s): E87.5 - Hyperkalemia (9) CAP (community acquired pneumonia) Status: Acute Qualifiers: Laterality: unspecified laterality Qualified Code(s): J18.9 - Pneumonia, unspecified organism Category: Medical Code(s): J18.9 - Pneumonia, unspecified organism (10) Adenocarcinoma, lung Status: Acute Category: Medical Code(s): C34.90 - Malignant neoplasm of unspecified part of unspecified bronchus or lung - Assessment and plan all Dx Assessment and Plan for all problems:: #Pulmonary fibrosis: # COPD: #Adenocarcinoma of the lung MsTeddy Kaufman 61-year-old female greater than [id number] smoking history, COPD, pulmonary fibrosis, recent diagnosis of adenocarcinoma negative disease PFTs and to see oncology nature treatment presented to the hospital with worsening weakness and found to be having worsening AGGIE and hyperkalemia. Patient respiratory status is at baseline. Chest x-ray did not show any acute pulmonary infiltrates. His leukocytosis is stable at 20. His blood gas from yesterday did not show any evidence of hypercarbic respiratory failure. PO2 at 99. Plan: -We will continue DuoNebs every 6 along with budesonide every 12 scheduled along with BiPAP during the nights for his hypercarbic respiratory failure. -De-escalate antibiotics to levofloxacin for possible community-acquired pneumonia x5 days -Patient is scheduled to see Dr. Clifton on 04/19/2021, if patient is still inpatient will recommend rescheduling appointment soon after his discharge - His PET scan is scheduled for toay, will reschedule that for a later date -Given history of lung cancer and hyperkalemia though less likely with solid malignancy, will recommend eveluate for tumor lysis syndrome with labs including serum phosphorus, uric acid and LDH. His serum total calcium within normal limits. Hyperkalemia noted. Thank you for involving pulmonary in this patient care. We will continue to follow.
--- NOTE | 2021-04-18 09:11 | CT_ITS ---
PROCEDURE: CT CHEST WO CON CLINICAL INDICATION: lung mass COMPARISON: CT CT BIOPSY GUIDED NEEDLE from 03/20/[address] ANGIO CHEST PE PROTOCOL from 03/28/2021 TECHNIQUE: Axial images obtained with sagittal and coronal reformats. All CT scans at the facility use one or more dose reduction, viz: automated exposure control, ma/kV adjustment per patient size (including targeted exams where dose is matched to indication, i.e. head), or iterative reconstruction technique. FINDINGS: HEART AND MEDIASTINAL STRUCTURES: Mediastinal adenopathy once again noted not significantly change with the largest ramón area at 3.7 x 3.3 cm in the anterior mediastinum on the left. Prior median sternotomy with CABG. LUNGS AND PLEURAL SPACES: A mass within the lingula is once again noted measuring 8.3 x 5.3 x 5.7 cm slightly larger previously measuring 7.9 by 4.1 x 5.3 cm. The mass extends to the parietal pleura laterally. There is a small left pleural effusion which is slightly increased in size. COPD with centrilobular emphysema and pulmonary fibrotic changes are present. There are numerous pulmonary metastasis which have increased in size and number since 03/28/2021. These are bilateral. Faint ground-glass infiltrate is present in the left upper lobe posteriorly. BONY STRUCTURES: No acute bony abnormalities apparent. UPPER ABDOMEN: No acute finding. The adrenal glands are not completely included on the exam. ADDITIONAL FINDINGS: No other significant abnormalities. IMPRESSION: Enlarging mass within the lingula with numerous bilateral pulmonary nodules which have increased in size and number consistent with primary lung carcinoma with intrapulmonary metastasis which has shown progression. Slightly enlarging small left pleural effusion with faint ground-glass infiltrate in the left upper lobe posteriorly with superimposed centrilobular emphysema and pulmonary fibrotic changes No change mediastinal adenopathy. Dictated by: Simone Lopez MD 04/18/2021 09:58 Simone Lopez MD in [facility] 04/18/2021 09:58
[2021-04-18 11:47] LABS: POC Glucose,Bedside 357 (70-110)
--- NOTE | 2021-04-18 11:48 | HMH.PULMPN ---
Internal Medicine - PN: Subj *Date: 04/18/21 *Time: 11:48 Interval history: No acute respiratory events overnight. Patient denies any new respiratory complaints. Admits respiratory status at his baseline. Exam - Constitutional Constitutional:: Present: no acute distress, comfortable - HENMT Exam HENMT: Present: atraumatic - Eye Exam Eyes:: Present: normal appearance both eyes and related structures - Neck Exam Neck:: Present: normal visual inspection - Respiratory Exam Respiratory:: Present: no respiratory distress, crackles, wheezing. Absent: accessory muscle use - Cardiovascular Exam Cardiac:: Present: S1, S2 - GI Exam GI:: Present: soft - Skin Exam Skin: Present: warm, no rash - Neurological Exam Neurological: Present: alert, awake, normal cognition Assessment and Plan (1) AGGIE (acute kidney injury) Status: Acute Category: Medical Code(s): N17.9 - Acute kidney failure, unspecified (2) CAD (coronary artery disease) Status: Chronic Qualifiers: Coronary Disease-Associated Artery/Lesion type: [place] artery [place] vs. transplanted heart: [place] heart Associated angina: with other forms of angina Qualified Code(s): I25.118 - Atherosclerotic heart disease of [place] coronary artery with other forms of angina pectoris Category: Medical Code(s): I25.10 - Atherosclerotic heart disease of [place] coronary artery without angina pectoris (3) Diabetes mellitus Status: Chronic Qualifiers: Diabetes mellitus type: type 2 Diabetes mellitus intermediate accountant insulin use: unspecified intermediate accountant insulin use status Diabetes mellitus complication status: with other specified complication Qualified Code(s): E11.69 - Type 2 diabetes mellitus with other specified complication Category: Medical Code(s): E11.9 - Type 2 diabetes mellitus without complications (4) Dyspnea Status: Chronic Qualifiers: Dyspnea type: dyspnea on exertion Qualified Code(s): R06.00 - Dyspnea, unspecified Category: Medical Code(s): R06.00 - Dyspnea, unspecified (5) HTN (hypertension) Status: Chronic Qualifiers: Hypertension type: essential hypertension Category: Medical Code(s): I10 - Essential (primary) hypertension (6) History of coronary artery bypass graft Status: Chronic Category: Surgical Code(s): Z95.1 - Presence of aortocoronary bypass graft (7) Mass of left lung Status: Chronic Category: Medical Code(s): R91.8 - Other nonspecific abnormal finding of lung field (8) Hyperkalemia Status: Acute Category: Medical Code(s): E87.5 - Hyperkalemia (9) CAP (community acquired pneumonia) Status: Acute Qualifiers: Laterality: unspecified laterality Qualified Code(s): J18.9 - Pneumonia, unspecified organism Category: Medical Code(s): J18.9 - Pneumonia, unspecified organism (10) Adenocarcinoma, lung Status: Acute Category: Medical Code(s): C34.90 - Malignant neoplasm of unspecified part of unspecified bronchus or lung - Assessment and plan all Dx Assessment and Plan for all problems:: #Pulmonary fibrosis: # COPD: #Adenocarcinoma of the lung Ms. Kaufman 61-year-old female greater than [id number] smoking history, COPD, pulmonary fibrosis, recent diagnosis of adenocarcinoma negative disease PFTs and to see oncology nature treatment presented to the hospital with worsening weakness and found to be having worsening AGGIE and hyperkalemia on admission, creatinine appeared to be plateaued now at 2.3- -Given history of lung cancer and hyperkalemia though less likely with solid malignancy, will recommend eveluate for tumor lysis syndrome with labs including serum phosphorus, uric acid and LDH. His serum total calcium within normal limits. Hyperkalemia noted. Patient respiratory status is at baseline. Chest x-ray on admission did not show any acute pulmonary infiltrates. His leukocytosis is stable at 20. His recent blood gas did not show any evidence of
--- NOTE | 2021-04-18 12:40 | DIET.NUTRFU ---
Pt doing much better today. He was eating poorly and requiring full assistance but today is able to feed himself as well as eat breakfast and lunch. BG moderate-high- avg. 260, weight is down 16# t/o stay, no edema noted, bowel function normal.
[2021-04-18 17:21] LABS: POC Glucose,Bedside 262 (70-110)
--- NOTE | 2021-04-18 18:45 | PC.NURSE ---
PT IS SITTING UP IN THE CHAIR WITH FAMILT AT BEDSIDE. PT HAS BEEN ALERT AND ORIENTED X3 THIS SHIFT. EATING AND DRINKING FAIR. CATHETER WAS REMOVED AT 1130 THIS SHIFT. PT HAS VOIDED IN 1 ATTENDS AND BLADDER WAS SCANNED 4 HOURS AFTER CATHETER WAS REMOVED (44 ML'S ). NEW IV ACCESS NOTED TO RFA. LUNG SOUNDS DIMINISHED WITH RT BILATERAL CRACKLES. ABDOMEN SOFT/NON TENDER WITH ACTIVE BOWEL SOUNDS . CSS. O2 SATURATION HAS MAINTAINED 90-93% ON 4 L NC. WILL CONTINUE TO MONITOR.
--- NOTE | 2021-04-18 19:54 | HMH.ACPN2 ---
Internal Medicine - PN: Subj *Date: 04/18/21 *Time: 08:35 Interval history: pt sitting on side of bed family at bedside Exam Vital signs and Labs for Last 24 Hours: Temp Pulse Resp BP Pulse Ox 98.0 F 85 18 121/64 92 L 04/18/21 16:00 04/18/21 17:55 04/18/21 16:00 04/18/21 16:00 04/18/21 17:55 Laboratory Results - last 24 hr 04/17/21 20:33: POC Glucose 290 H 04/18/21 05:13: POC Glucose 231 H 04/18/21 06:13: WBC 20.2 H*, RBC 3.29 L, Hgb 9.0 L D, Hct 30.1 L, MCV 91.5, MCH 27.4, MCHC 29.9 L, RDW 17.9 H, Plt Count 230, MPV 9.3, Neut % (Auto) 88.3 H, Lymph % (Auto) 6.1 L, [place] % (Auto) 5.3, Eos % (Auto) 0.1, Baso % (Auto) 0.2, Neut # (Auto) 17.9 H, Lymph # (Auto) 1.2, [place] # (Auto) 1.1 H, Eos # (Auto) 0.0, Baso # (Auto) 0.0, Total Counted 100, Neutrophils % (Manual) 93 H, Lymphocytes % (Manual) 2 L, Monocytes % (Manual) 5, Platelet Estimate Normal, Hypochromasia 3+, Anisocytosis 1+, Macrocytosis 2+ 04/18/21 06:13: Sodium 135 L, Potassium 5.9 H, Chloride 100, Carbon Dioxide 24, Anion Gap 16.9 H, BUN 44 H, Creatinine 2.30 H, Estimated Creat Clear 49, Estimated GFR 29 L, Est GFR ( Amer) 35 L, Glucose 215 H, Calcium 9.2 04/18/21 11:39: POC Glucose 357 H* 04/18/21 17:14: POC Glucose 262 H I & O for Last 24 hours: Intake & Output 04/16/21 04/17/21 04/18/21 04/19/21 11:59 11:59 11:59 11:59 Intake Total 360 / 360 1325 / 1325 180 / 180 960 / 960 Output Total 0 / 0 1950 / 1950 Balance 360 / 360 1325 / 1325 -1770 / -1770 960 / 960 Weight 230 lb 4 oz 225 lb 6.4 oz 226 lb 5 oz Microbiology Reports for the Last 24 Hours: Microbiology 04/17/21 16:35 Urine,Catheterized Urine Culture - Preliminary NO GROWTH AFTER 24 HOURS - Constitutional no acute distress, chronically ill appearing - *Routine HEENT Exam Head: Present: normocephalic Eye: Present: PERRL ENT: Present: mucous membranes moist - *Routine Neck Exam Present: supple. Absent: lymphadenopathy - *Routine Respiratory Exam Present: decreased breath sounds, wheezes - *Routine Cardiovascular Exam Present: RRR - *Routine Abdominal Exam Present: soft, normoactive bowel sounds. Absent: tenderness - *Routine Rectal Exam Patient deferred: visual exam Digital: Present: external hemorrhoid - *Routine Extremities Exam Present: normal capillary refill. Absent: cyanosis, clubbing, edema - *Routine Skin Exam Present: warm, wounds. Absent: rash Comments: stage 2 to coccyx around rectum on both sides-outer - *Routine Neurological Exam Present: alert, oriented X3 - Routine Psychiatric Exam Present: normal affect Assessment and Plan (1) AGGIE (acute kidney injury) Status: Acute Category: Medical Code(s): N17.9 - Acute kidney failure, unspecified (2) CAD (coronary artery disease) Status: Chronic Qualifiers: Coronary Disease-Associated Artery/Lesion type: [place] artery [place] vs. transplanted heart: [place] heart Associated angina: with other forms of angina Qualified Code(s): I25.118 - Atherosclerotic heart disease of [place] coronary artery with other forms of angina pectoris Category: Medical Code(s): I25.10 - Atherosclerotic heart disease of [place] coronary artery without angina pectoris (3) Diabetes mellitus Status: Chronic Qualifiers: Diabetes mellitus type: type 2 Diabetes mellitus terminal press operator insulin use: unspecified chcf insulin use status Diabetes mellitus complication status: with other specified complication Qualified Code(s): E11.69 - Type 2 diabetes mellitus with other specified complication Category: Medical Code(s): E11.9 - Type 2 diabetes mellitus without complications (4) Dyspnea Status: Chronic Qualifiers: Dyspnea type: dyspnea on exertion Qualified Code(s): R06.00 - Dyspnea, unspecified Category: Medical Code(s): R06.00 - Dyspnea, unspecified (5) HTN (hypertension) Status: Chronic Qualifiers: Hypertensio
[2021-04-18 20:57] LABS: POC Glucose,Bedside 293 (70-110)
[2021-04-19] VITALS: BP 116/66; PULSE 111; RESP 18; TEMP 36.6; O2SAT 98
[2021-04-19 04:00] VITALS: BP 123/69; PULSE 108; RESP 18; TEMP 37.3; O2SAT 100
[2021-04-19 05:03] VITALS: BMI 33.5
[2021-04-19 06:09] LABS: POC Glucose,Bedside 333 (70-110)
[2021-04-19 06:10] VITALS: PULSE 108; RESP 20; RESP 5; O2SAT 98
--- NOTE | 2021-04-19 07:02 | PC.NURSE ---
pt has been AxOx4, has rested well t/o shift, wore Bipap while sleeping, O2 sats 97-100%, lung sounds diminished on auscultation
[2021-04-19 07:09] LABS: Basophils % 0.2 % (0.1-2.0); Hematocrit 28.5 % (42.0-52.0); Hemoglobin 8.4 g/dL (14.1-18.0); Lymphocytes # 1.2 K/mm3 (0.7-4.5); Lymphocytes % 5.6 % (10-50); Mean Corpuscular HGB Conc 29.6 g/dL (31.8-35.4); Mean Corpuscular Hemoglobin 27.3 pg (27.0-31.2); Mean Corpuscular Volume 92.2 fl (80-94); Mean Platelet Volume 8.8 fl (7.4-10.4); Monocytes # 0.7 K/mm3 (0.1-1.0); Monocytes % 3.4 % (1.7-9.3); Neutrophils # 19.9 K/mm3 (1.8-7.8); Neutrophils % 90.8 % (37.0-80.0); Platelet Count 235 K/mm3 (142-424); Red Blood Count 3.09 M/mm3 (4.60-6.20); Red Cell Distribution Width 18.1 % (11.5-17.5); White Blood Count 21.9 K/mm3 (4.8-10.8)
[2021-04-19 07:11] LABS: MANUAL DIFFERENTIAL MANUAL DIFFERENTIAL (MANUAL DIFF)
[2021-04-19 07:21] LABS: Anion Gap 16.1 mEq/L (5-15); Blood Urea Nitrogen 45 mg/dl (9-20); Calcium 9.3 mg/dl (8.4-10.2); Carbon Dioxide 24 mmol/L (22.0-30.0); Chloride 100 mmol/L (98-107); Creatinine Clearance Estimated 43 mL/min (50-200); Estimated Glomerular Filt Rate 24 ml/min (>60); GFR (African American) 29 ML/MIN (>60); Glucose 303 mg/dl (74-100); Potassium 5.1 mmoL/L (3.5-5.1); Sodium 135 mmol/L (136-145)
[2021-04-19 07:22] LABS: Hypochromasia 3+; Lymphocytes % 4 % (10-50); Macrocytosis 1+; Monocytes % 3 % (2-9); Neutrophils % 93 % (42-76); Platelet Estimate Normal; Total Cells Counted 100
[2021-04-19 07:24] VITALS: BP 94/58; PULSE 102; TEMP 36.6; O2SAT 96
[2021-04-19 08:15] VITALS: PULSE 102; O2SAT 96
--- NOTE | 2021-04-19 09:25 | HMH.CONS ---
*Admission Date: 04/13/21 *History of present illness: Mr. Kaufman 61-year-old male with a new dx of lung cancer presented to hospital for mri. labs were done and demonstrated hyperkalemia 6.1 and renal failure. mri of brain did not demonstrate mets. he was unable to lie flat for mri of spine. he did have ct of lung demonstrating increase in primary lung mass. pt is very weak and debilitated. his is at bedside. he tells me he would like to go home. [facility] History Medical History: Reports:: Cancer, Congestive Heart Failure, Chronic Obstructive Pulmonary Disease (COPD), Coronary Artery Disease, Diabetes Mellitus Type 2, Home Oxygen, Hyperlipidemia, Hypertension, Myocardial Infarction, Peripheral Vascular Disease, Renal Disease Denies:: Diabetes Mellitus Type 1, Internal Pacemaker, MRSA, Seizures *Have you ever received a pneumonia vaccine?: Yes *Have you received a flu vaccine this season?: No Other Medical History: Reports: Hypothyroidism, Thyroid Disease. Denies: Blood Transfusion Reaction Other Surgeries: Yes: CABG, Cardiac Catheterization, Cardiac Surgery, Cholecystectomy, Coronary Stent. No: Pacemaker Amputation: No Fractures: No - *Social History Last grade of school completed: High school graduate Smoking Status: Current every day smoker Tobacco Type: cigarettes # Packs/Day (cigarettes): 1 Alcohol Intake: never Substance Use Type: denies use *Occupational Status:: disabled Housing: house Household Members: spouse *Travel in the last 8 weeks: None Family Hx:: Non-contributory Review of Systems - *Neurologic Reports abnormal walking, Reports lack of coordination, Reports weakness, Denies abnormal hearing, Denies behavioral changes, Denies confusion Meds Home Medications Medication Instructions Recorded Confirmed Type allopurinol 100 mg tablet 100 mg PO BID tab 04/10/20 04/13/21 History aspirin 81 mg tablet,delayed 81 mg PO DAILY 04/10/20 04/13/21 History release cholecalciferol (vitamin D3) 25 25 mcg PO DAILY 04/10/20 04/13/21 History mcg (1,000 unit) capsule clopidogrel 75 mg tablet 75 mg PO DAILY tab 04/10/20 04/13/21 History duloxetine 60 mg capsule,delayed 60 mg PO DAILY cap 04/10/20 04/13/21 History release furosemide 80 mg tablet 40 mg PO BID tab 04/10/20 04/13/21 History gabapentin 800 mg tablet 800 mg PO TID tab 04/10/20 04/13/21 History levothyroxine 100 mcg tablet 100 mcg PO DAILY tab 04/10/20 04/13/21 History rosuvastatin 20 mg tablet 20 mg PO DAILY tab 04/10/20 04/13/21 History spironolactone 50 mg tablet 50 mg PO DAILY tab 04/10/20 04/13/21 History trazodone 50 mg tablet 25 - 50 mg PO HSP PRN tab 04/10/20 04/14/21 History losartan 25 mg tablet 25 mg PO DAILY tab 11/22/20 04/13/21 History semaglutide 0.5 mg SQ WEEKLY ml 11/22/20 04/13/21 History Insulin Glargine,Hum.rec.anlog 90 units SQ DAILY 03/29/21 04/13/21 History [Julissa Duarte] Metoprolol Tartrate 75 mg PO BID 03/29/21 04/14/21 History Nitroglycerin [Nitrostat 0.4mg SL 0.4 mg SL Q5MINP PRN 03/29/21 04/13/21 History Tablet] Omeprazole [Omeprazole 20mg 20 mg PO DAILY 03/29/21 04/13/21 History Capsule] albuterol sulfate 90 mcg/actuation 1 inh INHALATION Q6H PRN 90 Days 04/02/21 04/13/21 Rx aerosol inhaler #8.5 g Fluticasone/Umeclidin/Vilanter 1 puff IH DAILY 04/14/21 04/14/21 History [Trelegy Ellipta 100-62.5-25] Ipratropium/Albuterol Sulfate 3 ml IH QIDP PRN 04/14/21 04/14/21 History [Duoneb 3mL neb] Nystatin 4 ml PO QID 04/14/21 04/14/21 History Tizanidine HCl [Tizanidine HCl 2 mg PO TIDP PRN 04/14/21 04/14/21 History 2mg] Allergies Allergy/AdvReac Type Severity Reaction Status Date / Time Sulfa (Sulfonamide Allergy Severe S-DIFF. Verified 04/12/21 08:18 Antibiotics) BREATHING albuterol Allergy Unknown Unknown Verified 04/12/21 08:18 allergy reaction diphenhydramine Allergy Unknown NA-NAUSEA/V Verified 04/12/21 08:18 OMITING iron Allergy Unknown Unknown Verif
--- NOTE | 2021-04-19 09:49 | HMH.DCSUM ---
General - General Admission date:: 04/13/21 Discharge date: 04/19/21 HPI HPI: Patient is a 60-year-old white male, knitted to our service as an unassigned patient who is [facility] at [facility] by Dr. Clifton and . Patient was recently diagnosed with a left upper lobe neoplasm, adenocarcinoma, 7 cm. There are multiple pulmonary masses, multiple pulmonary nodes. Patient has been seen in consultation with Dr. Clifton. At that point he relayed difficulty walking, weakness in his legs. PET scan is set up and pending. Patient was set up for an MRI of the lumbar spine today. He was found to have marked aberrations in his lab work, pacifically a potassium of 6.1, a creatinine of 2.5, and a glucose of 150. He has a longstanding history of diabetes, his baseline creatinine is about 1.3. There was also some mild hyponatremia evident. Patient wears a BiPAP at home, we will set him up for this as well as when on a sliding scale regimen, inhaled Xopenex, IV fluids, and analgesia. Is complaining of some back pain. Hospital Course Hospital Course: Patient is a 60-year-old white male, knitted to our service as an unassigned patient who is followed at [facility] by Dr. Clifton and . Patient was recently diagnosed with a left upper lobe neoplasm, adenocarcinoma, 7 cm. There are multiple pulmonary masses, multiple pulmonary nodes. Patient has been seen in consultation with Dr. Clifton. At that point he relayed difficulty walking, weakness in his legs. PET scan is set up and pending. Patient was set up for an MRI of the lumbar spine today. He was found to have marked aberrations in his lab work, pacifically a potassium of 6.1, a creatinine of 2.5, and a glucose of 150. He has a longstanding history of diabetes, his baseline creatinine is about 1.3. There was also some mild hyponatremia evident. Patient wears a BiPAP at home, we will set him up for this as well as when on a sliding scale regimen, inhaled Xopenex, IV fluids, and analgesia. Is complaining of some back pain. 04/13/21 CXR: FINDINGS: The lingular mass is again noted. Mild diffuse interstitial fibrotic changes are seen both perihilar regions and lower lobes, though there may be mild superimposed acute pneumonic infiltrate left lower lobe. There is blunting of left costophrenic angle which could be secondary to a small reactive pleural effusion. There is relative sparing of the upper lobes. Sternal wire sutures are noted , several of the sutures are fractured. IMPRESSION: Stable lingular all mass likely bronchogenic carcinoma, underlying bilateral lower lobe interstitial fibrotic changes with probable superimposed pneumonic infiltrate left lower lobe Dictated by: Dr. Vasiliy Garcia MD 04/18/[address]: FINDINGS: HEART AND MEDIASTINAL STRUCTURES: Mediastinal adenopathy once again noted not significantly change with the largest ramón area at 3.7 x 3.3 cm in the anterior mediastinum on the left. Prior median sternotomy with CABG. LUNGS AND PLEURAL SPACES: A mass within the lingula is once again noted measuring 8.3 x 5.3 x 5.7 cm slightly larger previously measuring 7.9 by 4.1 x 5.3 cm. The mass extends to the parietal pleura laterally. There is a small left pleural effusion which is slightly increased in size. COPD with centrilobular emphysema and pulmonary fibrotic changes are present. There are numerous pulmonary metastasis which have increased in size and number since 03/28/2021. These are bilateral. Faint ground-glass infiltrate is present in the left upper lobe posteriorly. BONY STRUCTURES: No acute bony abnormalities apparent. UPPER ABDOMEN: No acute finding. The adrenal glands are not completely included on the exam. ADDITIONAL FINDINGS: No other significant abnormalities. IMPRESSION: Enlarging mass within the lingula with numerous bilateral pulmonary nodules which have increased in size and nu
--- NOTE | 2021-04-19 09:58 | SW/DCPLANNER ---
Addendum entered by Nannette Wilmington 04/19/21 13:59: Patient/family is now requesting to discharge home today. I have notified and Arelis with Hospice. Addendum entered by Nannette Wilmington 04/19/21 13:40: Arelis stated that all equipment will be delivered and set up by tomorrow morning. Plan is for this patient to discharge home with Hospice tomorrow morning. and patient agree with this plan. Addendum entered by Nannette Wilmington 04/19/21 10:16: Per Maral with Hospice: Arelis will be here by 12PM today to evaluate this patient. Original Note: Dr Clifton was consulted on this patient this AM and recommended Hospice services. I spoke with patient and his regarding Hospice and they are agreeable to services at this time. Patient information has been faxed to Maral with Hospice. I will follow up with Maral once patient information is reviewed and time is arranged for Hospice nurse to evaluate this patient. stated that she will be here most of the day today.
--- NOTE | 2021-04-19 11:12 | HMH.PULMPN ---
Internal Medicine - PN: Subj *Date: 04/19/21 *Time: 11:12 Interval history: No acute respiratory events overnight. Exam - Constitutional Constitutional:: Present: no acute distress, comfortable - HENMT Exam HENMT: Present: normocephalic, atraumatic - Neck Exam Neck:: Present: normal visual inspection - Respiratory Exam Respiratory:: Present: able to speak in complete sentences, crackles. Absent: no respiratory distress, wheezing - Cardiovascular Exam Cardiac:: Present: S1, S2 - GI Exam GI:: Present: soft - Skin Exam Skin: Present: warm, no rash - Neurological Exam Neurological: Present: awake - Extremities Exam Extremities: Present: no cyanosis, no clubbing, no edema Assessment and Plan (1) AGGIE (acute kidney injury) Status: Acute Category: Medical Code(s): N17.9 - Acute kidney failure, unspecified (2) CAD (coronary artery disease) Status: Chronic Qualifiers: Coronary Disease-Associated Artery/Lesion type: [place] artery [place] vs. transplanted heart: [place] heart Associated angina: with other forms of angina Qualified Code(s): I25.118 - Atherosclerotic heart disease of [place] coronary artery with other forms of angina pectoris Category: Medical Code(s): I25.10 - Atherosclerotic heart disease of [place] coronary artery without angina pectoris (3) Diabetes mellitus Status: Chronic Qualifiers: Diabetes mellitus type: type 2 Diabetes mellitus senior care insulin use: unspecified senior care insulin use status Diabetes mellitus complication status: with other specified complication Qualified Code(s): E11.69 - Type 2 diabetes mellitus with other specified complication Category: Medical Code(s): E11.9 - Type 2 diabetes mellitus without complications (4) Dyspnea Status: Chronic Qualifiers: Dyspnea type: dyspnea on exertion Qualified Code(s): R06.00 - Dyspnea, unspecified Category: Medical Code(s): R06.00 - Dyspnea, unspecified (5) HTN (hypertension) Status: Chronic Qualifiers: Hypertension type: essential hypertension Category: Medical Code(s): I10 - Essential (primary) hypertension (6) History of coronary artery bypass graft Status: Chronic Category: Surgical Code(s): Z95.1 - Presence of aortocoronary bypass graft (7) Mass of left lung Status: Chronic Category: Medical Code(s): R91.8 - Other nonspecific abnormal finding of lung field (8) Hyperkalemia Status: Acute Category: Medical Code(s): E87.5 - Hyperkalemia (9) CAP (community acquired pneumonia) Status: Acute Qualifiers: Laterality: unspecified laterality Qualified Code(s): J18.9 - Pneumonia, unspecified organism Category: Medical Code(s): J18.9 - Pneumonia, unspecified organism (10) Adenocarcinoma, lung Status: Acute Category: Medical Code(s): C34.90 - Malignant neoplasm of unspecified part of unspecified bronchus or lung - Assessment and plan all Dx Assessment and Plan for all problems:: #Pulmonary fibrosis: # COPD: #Adenocarcinoma of the lung Ms. Kaufman 61-year-old female greater than [id number] smoking history, COPD, pulmonary fibrosis, recent diagnosis of adenocarcinoma negative disease PFTs and to see oncology nature treatment presented to the hospital with worsening weakness and found to be having worsening AGGIE and hyperkalemia on admission. His respiratory status is at baseline on this admission. Patient repeat CT chest that showed worsening lung mass and metastasis. Oncology was consulted and recommended hospice. Plan: -We will continue DuoNebs every 6 along with budesonide every 12 scheduled along with BiPAP during the nights for his hypercarbic respiratory failure while inpatient, will continue home inhaler therapy on discharge -Continue levofloxacin for possible community-acquired pneumonia x5 days -Follow hospice recommendations, will discontinue PET scan Thank you for involving pulmonary in this patient care. We zaheer
[2021-04-19 11:19] LABS: POC Glucose,Bedside 446 (70-110)
[2021-04-19 12:00] VITALS: BP 113/52; PULSE 102; RESP 18; TEMP 36.9; O2SAT 93
--- NOTE | 2021-04-19 15:02 | HMH.PHAINT ---
MEDICATION DISCHARGE COUNSELING COMPLETE. PATIENT HAD NO QUESTIONS AND STATED HE HAD BEEN ON ABX BEFORE. I COUNSELED PATIENT ON ADVERSE REACTIONS TO LOOK FOR AND HOW TO TAKE MEDICATION.
--- NOTE | 2021-04-19 15:05 | PC.NURSE ---
Discharge education provided. Questions encouraged and answered. Pt. and spouse v/u. IV's x2 removed. Pt. tolerated well. 2x2 [address] [place] [address], to LFA and LAC.
--- NOTE | 2021-04-19 15:10 | PC.NURSE ---
Pt. left unit via wheelchair accompanied by staff x1.
== END 2021-04-19 15:10 | disposition hospice, home (50) | DRG 682 ==
LOC: ER 12:47 → 2ND 16:01
PROVIDERS: Emergency Medicine; Nurse Practitioner Family; Admitting Provider Family Medicine; Emergency Provider Student in an Organized Health Care Education/Training Program; PCP Nurse Practitioner Family; Visit Provider Family Medicine
DX: N17.9 Acute kidney failure, unspecified (principal); J18.9 Pneumonia, unspecified organism; J96.92 Respiratory failure, unspecified with hypercapnia; C34.12 Malignant neoplasm of upper lobe, left bronchus or lung; J44.0 Chronic obstructive pulmonary disease with (acute) lower respiratory infection; E87.1 Hypo-osmolality and hyponatremia; E87.5 Hyperkalemia; Z20.822 Contact with and (suspected) exposure to COVID-19; I25.10 Atherosclerotic heart disease of native coronary artery without angina pectoris; I11.0 Hypertensive heart disease with heart failure; I50.9 Heart failure, unspecified; E11.51 Type 2 diabetes mellitus with diabetic peripheral angiopathy without gangrene; J44.9 Chronic obstructive pulmonary disease, unspecified; I25.2 Old myocardial infarction; Z99.81 Dependence on supplemental oxygen; Z95.1 Presence of aortocoronary bypass graft; Z95.5 Presence of coronary angioplasty implant and graft; E03.9 Hypothyroidism, unspecified; E78.5 Hyperlipidemia, unspecified; J84.10 Pulmonary fibrosis, unspecified; Z79.4 Long term (current) use of insulin; M54.5 Low back pain; Z87.891 Personal history of nicotine dependence; E11.65 Type 2 diabetes mellitus with hyperglycemia
CPT/HCPCS: 36415; 71045; 71250; 80048; 80053; 81001; 82803; 82962; 84484; 85007; 85025; 87086; 92610; 93005; 94640; 94660; 94760; 94761; 96365; 96367; 96375; 99285; J0456; J1956; J2405; U0003